=== PATIENT | female | born 1965 | race Caucasian/White ===

== ENCOUNTER 2019-11-19 17:05 | Outpatient (REF) | payer OTHER, SELFPAY ==
--- NOTE | 2019-11-19 17:11 | MM_ITS ---
EXAMINATION: MM SCREENING DIGITAL BREAST TOMOSYNTHESIS, BILATERAL CLINICAL INFORMATION: Screening. Asymptomatic. The lifetime risk of breast cancer based on the Tyrer-Cuzick Model is 7%. COMPARISON: Mammography: 06/13/2018, 07/31/2017, 04/09/2016, 03/01/2015 TECHNIQUE: Digital breast tomosynthesis is performed in both the craniocaudal and mediolateral oblique views along with computer-aided detection (CAD). Synthesized 2D images are generated from the tomosynthesis. FINDINGS: There are scattered areas of fibroglandular density (ACR BI-RADS breast composition Category b). Breast tissue composition borders on predominantly fatty. Background fibroglandular and stromal densities are stable. Parenchymal asymmetry posterior upper outer right breast is stable. There is no developing density or interval mass or architectural abnormality. No abnormal calcifications. No significant changes. IMPRESSION: No mammographic evidence of malignancy. ASSESSMENT: BI-RADS 2: Benign RECOMMENDATION: Routine annual mammography screening. This patient's information was entered into a reminder system with a target due date for their next mammogram.
== END 2019-11-19 17:06 | disposition home or self-care (01) ==
LOC: HO.MAMMO 17:05
PROVIDERS: PCP Internal Medicine; Visit Provider Internal Medicine
DX: Z12.31 Encounter for screening mammogram for malignant neoplasm of breast (principal)
CPT/HCPCS: 77063; 77067; 78014

== ENCOUNTER 2020-07-05 10:52 | Outpatient (REF) | payer OTHER, SELFPAY ==
[2020-07-05 14:03] LABS: MANUAL DIFF FLAG NO
[2020-07-05 14:15] LABS: Basophils Absolute Auto 0.1 X10*3/uL (0.0-0.2); Basophils Percent Auto 0.6 % (0-2); Eosinophils Absolute Auto 0.3 X10*3/uL (0.0-0.4); Eosinophils Percent Auto 3.1 % (0-4); Hematocrit 41.3 % (37-47); Hemoglobin 13.4 g/dl (12.0-16.0); Imm Gran Abs Auto 0.03 X10*3/uL (0.00-0.03); Imm Gran Pct Auto 0.4 % (0.0-0.4); Lymphocytes Percent Auto 35.7 % (20-40); Mean Corpuscular HGB Conc 32.4 g/dl (31.0-35.0); Mean Corpuscular Hemoglobin 28.5 pg (27.0-33.0); Mean Corpuscular Volume 87.9 fL (80-98); Mean Platelet Volume 9.3 fL (9.4-12.3); Monocytes Absolute Auto 0.5 X10*3/uL (0.1-1.2); Monocytes Percent Auto 6.2 % (2-11); Neutrophils Absolute Auto 4.6 X10*3/uL (2.0-8.3); Platelet Count 373 X10*3/uL (160-400); Red Cell Distribution Width 12.4 % (11.0-16.0); White Blood Count 8.4 X10*3/uL (4.8-10.8)
[2020-07-05 14:44] LABS: Alanine Aminotransferase 21 U/L (0-31); Albumin Level 4.2 g/dL (3.5-5.0); Alkaline Phosphatase 68 U/L (39-117); Anion Gap 14 (12-20); Aspartate Amino Transferase 11 U/L (5-31); Bilirubin Total 0.5 mg/dL (0.0-1.0); Blood Urea Nitrogen 14 mg/dL (9-16); Calcium 9.3 mg/dL (8.4-10.2); Carbon Dioxide 23 mmol/L (22-29); Chloride 107 mmol/L (96-108); Cholesterol 219 mg/dL; Estimated Glomerular Filt Rate > 60; Glucose Fasting 145 mg/dL (60-99); HDL Cholesterol 41 mg/dL; LDL Cholesterol Calculated 126 mg/dl; Potassium 4.1 mmol/L (3.3-5.1); Sodium 140 mmol/L (135-145); Total Protein 6.7 g/dL (6.5-8.0); Triglycerides 263 mg/dL
[2020-07-05 14:54] LABS: Creatinine Urine 113.43 mg/dL
== END 2020-07-05 10:53 | disposition home or self-care (01) ==
LOC: HO.HMGCLDS 10:52
PROVIDERS: PCP Internal Medicine; Visit Provider Internal Medicine
DX: D64.9 Anemia, unspecified (principal); E11.65 Type 2 diabetes mellitus with hyperglycemia; E78.5 Hyperlipidemia, unspecified; E06.3 Autoimmune thyroiditis
CPT/HCPCS: 36415; 80053; 80061; 82043; 84443; 85025

== ENCOUNTER 2020-07-10 19:18 | Emergency (ER) | payer OTHER, SELFPAY ==
--- NOTE | ~2020-07-10 | US_ITS ---
EXAMINATION: US VENOUS WITH DOPPLER LOWER EXTREMITY, RIGHT CLINICAL INFORMATION: Swelling, numbness, and tingling following knee replacement. COMPARISON: None TECHNIQUE: Ultrasound of the deep veins is performed from the hip to the calf with compression sonography and color and pulse Doppler assessment. Spectral analysis with color-flow imaging is performed. FINDINGS: There is normal venous compression and respiratory variation and augmented flow. The visualized common femoral vein, superficial femoral vein, profunda femoral vein, popliteal vein, and the trifurcation region shows no evidence of deep venous thrombosis. There is no significant popliteal fossa cyst. Small knee joint effusion. If the patient's symptoms persist, followup ultrasound in 5 days 7 days might be of value to exclude proximal propagation from a non-visualized calf vein. Small right inguinal lymph nodes. US/US venous duplex LE RT IMPRESSION: 1. No DVT demonstrated in the right lower extremity. 2. Small right knee joint effusion.
--- NOTE | ~2020-07-10 | US_ITS ---
EXAMINATION: US ARTERIAL DUPLEX LOWER EXTREMITY, RIGHT CLINICAL INFORMATION: Tingling status post knee replacement COMPARISON: None TECHNIQUE: Grayscale and color Doppler sonographic interrogation of the right lower extremity arterial vasculature was performed using spectral analysis. FINDINGS: * MORTGAGE SALES MANAGER: 111 cm/s, triphasic * Proximal profunda femoral: 64 cm/s, triphasic. * Proximal SFA: 96 cm/s, triphasic. * Mid SFA: 97 cm/s, triphasic. * Distal SFA: 89 cm/s, triphasic * Popliteal: 77 cm/s, triphasic * FINISHING AND SHIPPING SUPERVISOR: 63cm/s, triphasic * Peroneal: 32 cm/s, biphasic US/US arterial duplex LE RT IMPRESSION: Patent lower extremity arterial vasculature.
[2020-07-10 19:24] VITALS: BP 115/72; PULSE 74; RESP 16; TEMP 36.3; O2SAT 98; BMI 33.6
--- NOTE | 2020-07-10 19:54 | ED.EXTPRO ---
HPI - Extremity Problem General Chief complaint: Extremity Problem Stated complaint: leg pain Time Seen by Provider: 07/10/20 22:18 Source: patient Mode of arrival: ambulatory Limitations: no limitations History of Present Illness HPI Narrative: 55-year-old female with past medical history of hypothyroidism, bipolar disorder, diabetes, hyperlipidemia, right knee replacement February of 2020 presents with right lower leg pain, swelling and numbness. States that she was seen by her Orthopedic and urgent care over the past 2 weeks. States they did not find any abnormal findings. Patient has concerns because of the swelling. She does not report any fevers, chills, chest pain or pressure, palpitations, shortness of breath, shortness breath on exertion, chest pain on inspiration, abdominal pain, abdominal distention, dysuria, hematuria, or any other concerning problems. MD Complaint: extremity swelling Onset (ago): week(s) Pain Consistency: constant Location: right and lower extremity Severity scale (1-10): 6 Quality: aching and constant Radiation: none Relieving factors: nothing Exacerbating factors: weight bearing, walking and exertion Associated symptoms: other (Numbness, tingling and swelling) Related Data Home Medications Medication Instructions Recorded Confirmed pen needle, diabetic 31 gauge x #1200 ea 06/20/20 07/04/2006/26 metformin 750 mg tablet,extended 750 mg PO DAILY tab 07/04/20 07/04/20 release 24 hr Previous Rx's Medication Instructions Recorded levothyroxine 100 mcg tablet 100 mcg PO DAILY 90 Days #90 tab 11/24/19 ergocalciferol (vitamin D2) 1,250 1,250 mcg PO QWEEK 30 Days #5 cap 03/10/20 mcg (50,000 unit) capsule canagliflozin 300 mg tablet 300 mg PO DAILY 90 Days #90 tab 05/10/20 omeprazole 20 mg capsule,delayed 20 mg PO DAILY 90 Days #90 cap 05/17/20 release atorvastatin 80 mg tablet 80 mg PO BEDTIME 90 Days #90 tab 06/16/20 acetaminophen 500 mg tablet 500 mg PO BID PRN 90 Days #180 tab 07/04/20 insulin glargine 100 unit/mL (3 25 unit SUBCUT DAILY 90 Days #22.5 07/04/20 mL) subcutaneous pen ml zolpidem 10 mg tablet 10 mg PO BEDTIME PRN 30 Days #30 05/24/21 tab flash glucose sensor #1 ea 07/06/20 blood sugar diagnostic #50 07/07/20 blood-glucose meter #1 07/07/20 lancets 28 gauge #100 07/07/20 Allergies Allergy/AdvReac Type Severity Reaction Status Date / Time codeine [CODEINE] Allergy Intermediate NAUSEA, Verified 07/10/20 20:10 nausea and vomiting Review of Systems Review of Systems: Constitutional: No Fever, No Chills ENT/Mouth: No Ear Pain, No Hoarseness, No sore throat Eyes: No Eye Pain, No Swelling, No Redness, No Foreign Body Cardiovascular: No Chest Pain, No SOB Respiratory: No Cough, No Dyspnea Gastrointestinal: No Nausea, No Vomiting, No Diarrhea, No abdominal Pain Genitourinary: No Dysuria, No Hematuria Musculoskeletal: positive right lower extremity numbness tingling pain and swelling, No Myalgias, No Joint Swelling Skin: No Skin lacerations, No rash Neuro: No Weakness, No Numbness, No Paresthesias, No Loss of Consciousness, No Dizziness, No Headache Psych: No Anxiety/Panic, No Depression Heme/Lymph: no easy bruising, no Lymphadenopathy Endocrine: No Polyuria, No Polydipsia Yes all other systems are reviewed and are negative [facility] Past Medical History Attestation statement: The following information was validated with the patient. Source: old records reviewed Medical History Autoimmune thyroiditis Bipolar disorder Depression with anxiety Diabetes mellitus Dyslipidemia Fear of needles Insomnia Knee pain Surgical History History of total right knee replacement Family History Family History Father No problems noted. Mother Brain aneurysm COPD (chronic obstructive pulmonary disease) Social History Social History Alcohol intake: former Advance Directives: No Physical Exam Vital Signs: Vital Signs: Last Vital Signs Temp 97.3 F 07/10/20 22:00 Pulse 73 07/10/20 22:00 Resp 16 07/10/20 22:00 BP 104/62 07/10/20 22:00 Pulse Ox 97 07/10/20 22:00 Body Mass Index 33.6 Appearance: Alert. Oriented X3. No acute distress. Eyes: Pupils equal, round and reactive to light. ENT: Pharynx normal. Neck: Normal inspection. Neck supple. CVS: Normal heart rate and rhythm. Pulses normal. Respiratory: No respiratory distress. Breath sounds normal. Abdomen: Soft and nontender. Skin: Skin warm and dry. Normal skin color. Normal skin turgor. Extremities: Full range of motion to bilateral lower extremities, I do not appreciate any abnormal swelling or decreased capillary refill, pedal pulses are equal. Neuro: No motor deficit. No sensory deficit. Gait well balanced well coordinated. Course Course Course Narrative: 55-year-old female presents with right leg pain, swelling, numbness and tingling. She is 5 months status post right knee replacement. Was seen by the Orthopedic surgeon who did not find any abnormal findings on his exam. Plan of care is for duplex and arteriogram of right lower extremity. MDM - Extremity (Nontraumatic) Differential Diagnosis Differential diagnosis: Likely superficial thrombophlebitis, lower extremity edema and deep vein thrombosis of lower extremity Medical Records Attestation: I reviewed the patient's medical records. Imaging Data Venous duplex: Attestation: I personally reviewed and interpreted this imaging study as follows: Radiologist's impression: EXAMINATION: US VENOUS WITH DOPPLER LOWER EXTREMITY, RIGHT CLINICAL INFORMATION: Swelling, numbness, and tingling following knee replacement. COMPARISON: None TECHNIQUE: Ultrasound of the deep veins is performed from the hip to the calf with compression sonography and color and pulse Doppler assessment. Spectral analysis with color-flow imaging is performed. FINDINGS: There is normal venous compression and respiratory variation and augmented flow. The visualized common femoral vein, superficial femoral vein, profunda femoral vein, popliteal vein, and the trifurcation region shows no evidence of deep venous thrombosis. There is no significant popliteal fossa cyst. Small knee joint effusion. If the patient's symptoms persist, followup ultrasound in 5 days 7 days might be of value to exclude proximal propagation from a non-visualized calf vein. Small right inguinal lymph nodes. US/US venous duplex LE RT IMPRESSION: 1. No DVT demonstrated in the right lower extremity. 2. Small right knee joint effusion. Arterial duplex: Attestation: I personally reviewed and interpreted this imaging study as follows: Radiologist's impression: cc: VIVEK CAMPBELL FRAME CATCHER~ EXAMINATION: US ARTERIAL DUPLEX LOWER EXTREMITY, RIGHT CLINICAL INFORMATION: Tingling status post knee replacement COMPARISON: None TECHNIQUE: Grayscale and color Doppler sonographic interrogation of the right lower extremity arterial vasculature was performed using spectral analysis. FINDINGS: * RACE BOARD ATTENDANT: 111 cm/s, triphasic * Proximal profunda femoral: 64 cm/s, triphasic. * Proximal SFA: 96 cm/s, triphasic. * Mid SFA: 97 cm/s, triphasic. * Distal SFA: 89 cm/s, triphasic * Popliteal: 77 cm/s, triphasic * PATTERN GATER: 63cm/s, triphasic * Peroneal: 32 cm/s, biphasic US/US arterial duplex LE RT IMPRESSION: Patent lower extremity arterial vasculature. Discharge Plan Discharge Clinical Impression: Effusion of knee joint right Patient Disposition: Home, Self-Care Instructions: Swollen Knee Joint (ED), Knee Pain (ED) Additional Instructions: You were evaluated for right knee pain and swelling with tingling and numbness. Your venous duplex was normal with the exception and a small right knee effusion, which is a pocket of fluid inside the knee joint. Your arterial duplex was normal. You do not have any DVT or arterial deterioration visualized on these exams Please follow-up with your orthopedic for knee effusion. Thank you for choosing this emergency department for evaluation. Please follow-up with primary care physician as needed. Return to the emergency department for any new, concerning, or worsening symptoms. Prescriptions: No Action levothyroxine 100 mcg tablet 100 mcg PO DAILY 90 Days Qty: 90 RF: 1 ergocalciferol (vitamin D2) 1,250 mcg (50,000 unit) capsule 1,250 mcg PO QWEEK 30 Days Qty: 5 RF: 4 Invokana 300 mg tablet 300 mg PO DAILY 90 Days Qty: 90 RF: 1 omeprazole 20 mg capsule,delayed release(DR/EC) 20 mg PO DAILY 90 Days Qty: 90 RF: 3 atorvastatin 80 mg tablet 80 mg PO BEDTIME 90 Days Qty: 90 RF: 2 (DME) pen needle, diabetic [UltiCare Pen Needle] 31 gauge x 5/16 needle See Rx Instructions .ROUTE .MEDSUPPLY Qty: 1200 RF: 0 (DME) FreeStyle Debora 2 Sensor Kit See Rx Instructions .ROUTE .MEDSUPPLY Qty: 1 RF: 0 (DME) lancets [FreeStyle Lancets] 28 gauge misc See Rx Instructions .ROUTE .MEDSUPPLY Qty: 100 RF: 11 (DME) blood-glucose meter [FreeStyle Superior] Kit See Rx Instructions .ROUTE .MEDSUPPLY Qty: 1 RF: 0 (DME) FreeStyle Test Strip See Rx Instructions .ROUTE .MEDSUPPLY Qty: 50 RF: 11 metformin 750 mg tablet extended release 24 hr 750 mg PO DAILY RF: 0 insulin glargine 100 unit/mL (3 mL) insulin pen 25 unit subcut DAILY 90 Days Qty: 22.5 RF: 3 acetaminophen [Tylenol Extra Strength] 500 mg tablet 500 mg PO BID PRN (Reason: fever or pain) 90 Days Qty: 180 RF: 3 zolpidem 10 mg tablet 10 mg PO BEDTIME PRN (Reason: sleep) 30 Days Qty: 30 RF: 0
[2020-07-10 22:00] VITALS: BP 104/62; PULSE 73; RESP 16; TEMP 36.3; O2SAT 97
[2020-07-10] MEDS: Ibuprofen 600 MG TABLET PO (22:19)
== END 2020-07-10 23:02 | disposition home or self-care (01) ==
PROVIDERS: Emergency Provider Internal Medicine; PCP Internal Medicine
DX: M25.461 Effusion, right knee (principal); M79.661 Pain in right lower leg; E11.9 Type 2 diabetes mellitus without complications; E78.5 Hyperlipidemia, unspecified; F31.9 Bipolar disorder, unspecified; Z96.651 Presence of right artificial knee joint; Z79.84 Long term (current) use of oral hypoglycemic drugs; Z79.02 Long term (current) use of antithrombotics/antiplatelets; Z79.899 Other long term (current) drug therapy
CPT/HCPCS: 93926; 93971; 99284

== ENCOUNTER 2020-11-03 09:29 | Outpatient (REF) | payer OTHER, SELFPAY ==
[2020-11-03 10:43] LABS: Alanine Aminotransferase 24 U/L (0-31); Albumin Level 4.1 g/dL (3.5-5.0); Alkaline Phosphatase 58 U/L (39-117); Anion Gap 13 (12-20); Aspartate Amino Transferase 19 U/L (5-31); Bilirubin Total 0.5 mg/dL (0.0-1.0); Blood Urea Nitrogen 13 mg/dL (9-16); Calcium 9.7 mg/dL (8.4-10.2); Carbon Dioxide 25 mmol/L (22-29); Chloride 106 mmol/L (96-108); Cholesterol 139 mg/dL; Estimated Glomerular Filt Rate > 60; Glucose Fasting 168 mg/dL (60-99); HDL Cholesterol 36 mg/dL; LDL Cholesterol Calculated 76 mg/dl; Potassium 4.5 mmol/L (3.3-5.1); Sodium 139 mmol/L (135-145); Total Protein 6.6 g/dL (6.5-8.0); Triglycerides 139 mg/dL
[2020-11-03 11:04] LABS: Thyroid Stimulating Hormone 0.54 uIU/mL (0.32-4.0)
[2020-11-11 16:17] LABS: Vitamin D 25-OH, D2 48 ng/mL; Vitamin D 25-OH, D3 5 ng/mL; Vitamin D 25-OH, Total 53 ng/mL (30-100)
== END 2020-11-03 09:30 | disposition home or self-care (01) ==
LOC: HO.LAB 09:29
PROVIDERS: PCP Internal Medicine; Visit Provider Internal Medicine
DX: E06.3 Autoimmune thyroiditis (principal); E78.5 Hyperlipidemia, unspecified; E11.65 Type 2 diabetes mellitus with hyperglycemia; E55.9 Vitamin D deficiency, unspecified
CPT/HCPCS: 36415; 80053; 80061; 82306; 84443

== ENCOUNTER 2020-11-29 08:19 | Outpatient (REF) | payer OTHER, SELFPAY ==
--- NOTE | ~2020-11-29 | MM_ITS ---
EXAMINATION: MM SCREENING DIGITAL BREAST TOMOSYNTHESIS, BILATERAL CLINICAL INFORMATION: Screening. Asymptomatic. The lifetime risk of breast cancer based on the Tyrer-Cuzick Model is 6%. COMPARISON: Mammography: 11/19/2019, 06/18/2018, 05/17/2017, 04/09/2016, 03/01/2015 TECHNIQUE: Digital breast tomosynthesis is performed in both the craniocaudal and mediolateral oblique views along with computer-aided detection (CAD). Synthesized 2D images are generated from the tomosynthesis. FINDINGS: There are scattered areas of fibroglandular density (ACR BI-RADS breast composition Category b). There are no significant masses, abnormal calcifications, or other abnormalities. There is minor stable parenchymal asymmetry posterior upper outer right breast similar to prior studies. No developing density. The axilla and skin contours are unremarkable. MM/MM tomosynthesis screening BI IMPRESSION: No mammographic evidence of malignancy. ASSESSMENT: BI-RADS 2: Benign RECOMMENDATION: Routine annual mammography screening. This patient's information was entered into a reminder system with a target due date for their next mammogram.
== END 2020-11-29 08:20 | disposition home or self-care (01) ==
LOC: HO.MAMMO 08:19
PROVIDERS: PCP Internal Medicine; Visit Provider Internal Medicine
DX: Z12.31 Encounter for screening mammogram for malignant neoplasm of breast (principal)
CPT/HCPCS: 77063; 77067

== ENCOUNTER 2020-12-28 10:00 | Outpatient (RCR) | payer OTHER, SELFPAY ==
--- NOTE | 2020-11-17 16:47 | MHC.PT.EP ---
[facility] [place] [facility] [place] [facility] [place] [facility] [address] Richelle Ortega [address] [phone] F: [phone] F: [phone] F: [phone] F: [phone] Physical Therapy Plan of Care Date of Evaluation: Date of Surgery: feb 22 TKA Diagnosis: pain in Right knee Assessment: Pt is a 55/yo F referred to PT for eval/treat of R knee pain. signs and symptoms are consistent with knee dysfunction resulting in decreased tolerance and ability to perform ambulatory, standing tasks for duration as well as negotiating stairs, performing squatting activities and heavy HH chores. Functional limitations are secondary decreased LE strength more affected on R, restricted ROM w/ empty end feel on R, TTP of stacie-patellar region, gait deviation ? antalgic gait, hx of fall, and pain. pt is deemed appropriate to receive skilled PT to address her physical impairment and improve her functional ability. Frequency and Duration: The patient will be seen 2x/wk for 5wk Short Term Goals: initiate HEP w/ evidence of compliance pt will report pain less than 2/10 pain at rest Alf Goals: I with HEP pt will be able to squat with mod difficulty; initial extreme difficulty pt will be able to negotiate stairs with little to no difficulty pt will improve her LEFI score by increment of 2 MDC; initial socre 25/80 Treatment Plan: Modalities to reduce pain, spasms and effusion. Manual therapy to restore motion and function. Therapeutic exercise to improve strength and flexibility. Neuromuscular re-education for posture and balance. Therapeutic activities to return to functional activities of daily living. Electronically signed by: Balwinder Dumont PT Please sign and return to therapist. Thank you for your referral.
== END 2021-04-07 11:01 | disposition home or self-care (01) ==
LOC: HO.PTCHIC 10:00
PROVIDERS: PCP Internal Medicine; Visit Provider Internal Medicine
DX: M25.561 Pain in right knee (principal)
CPT/HCPCS: 97110; 97112; 97140; 97161

== ENCOUNTER 2021-01-26 14:09 | Outpatient (REF) | payer OTHER, SELFPAY ==
[2021-01-26 15:06] LABS: Influenza A PCR NEGATIVE (Negative); Influenza B PCR NEGATIVE (Negative); Resp Syncy Virus RNA Qual PCR NEGATIVE (Negative); SARS COV2 PCR INHOUSE POSITIVE (Negative)
== END 2021-01-26 14:10 | disposition home or self-care (01) ==
LOC: HO.LNP 14:09
PROVIDERS: Visit Provider Physician Assistant
DX: J06.9 Acute upper respiratory infection, unspecified (principal); R19.7 Diarrhea, unspecified; Z20.822 Contact with and (suspected) exposure to COVID-19
CPT/HCPCS: 0241U

== ENCOUNTER 2021-02-02 10:53 | Emergency (ER) | payer OTHER, SELFPAY ==
[2021-02-02 12:32] VITALS: BP 132/74; PULSE 92; RESP 18; TEMP 35.8; O2SAT 96; BMI 30.4
--- NOTE | 2021-02-02 12:51 | ED.GENADULT ---
HPI - General Adult General Chief complaint: Upper Respiratory Symptoms Stated complaint: +covid/ diff breathing Time Seen by Provider: 02/02/21 12:51 Source: patient Limitations: no limitations History of Present Illness HPI narrative: Patient presents to the ER with worsening sore throat over the past few days. Patient tested positive COVID-19 78 days prior. Patient states her symptoms started on January 22. Patient is a type 2 diabetic. Patient was seen in outside clinic where she was tested positive COVID at that time. Patient is fully vaccinated but does not have the booster at this time. Patient was given follow-up for monoclonal antibodies but she did not go because she thought she had a self quarantine. At this time symptoms are outside of the 10 day. Patient's main concern is the painful swallowing she has a slight cough. No nausea vomiting chest pain or shortness of breath at this time. Cough is nonproductive. Symptoms are [id number] pain 08/20 Related Data Home Medications Medication Instructions Recorded Confirmed gabapentin 300 mg capsule 300 mg PO TID 11/02/20 11/02/20 lancets 33 gauge (TRUEplus Lancets) #100 ea 11/02/20 11/02/20 Previous Rx's Medication Instructions Recorded omeprazole 20 mg capsule,delayed 20 mg PO DAILY 90 Days #90 cap 05/17/20 release atorvastatin 80 mg tablet 80 mg PO BEDTIME 90 Days #90 tab 06/16/20 acetaminophen 500 mg tablet 500 mg PO BID PRN 90 Days #180 tab 07/04/20 (Tylenol Extra Strength) insulin glargine 100 unit/mL (3 25 unit (0.25 mL) SUBCUT DAILY 90 07/04/20 mL) subcutaneous pen Days #22.5 ml flash glucose sensor (FreeStyle #1 ea 07/06/20 Debora 2 Sensor) blood sugar diagnostic (FreeStyle #50 ea 07/07/20 Test) blood-glucose meter (FreeStyle #1 ea 07/07/20 [place]) lancets 28 gauge (FreeStyle #100 ea 07/07/20 Lancets) canagliflozin 300 mg tablet 300 mg PO DAILY 90 Days #90 tab 11/14/20 (Invokana) pen needle, diabetic 31 gauge x #100 ea 11/22/2006/26 (UltiCare Pen Needle) ergocalciferol (vitamin D2) 1,250 1,250 mcg PO QWEEK 30 Days #5 cap 12/14/20 mcg (50,000 unit) capsule metformin 750 mg tablet,extended 2,250 mg PO DAILY 30 Days #90 tab 01/02/21 release 24 hr zolpidem 10 mg tablet 10 mg PO BEDTIME PRN 30 Days #30 01/11/21 tab levothyroxine 100 mcg tablet 100 mcg PO DAILY 90 Days #90 tab 01/24/21 guaifenesin 600 mg tablet, 600 mg PO BID 7 Days #14 tab 01/31/21 extended release 12 hr (Mucinex) benzonatate 100 mg capsule 100 mg PO TID PRN #14 cap 02/02/21 Allergies Allergy/AdvReac Type Severity Reaction Status Date / Time codeine [CODEINE] Allergy Intermediate NAUSEA, Verified 01/26/21 10:18 nausea and vomiting Review of Systems Constitutional: Constitutional: Denies chills, Denies fever(s) and Denies headache(s) ENT: Denies headache(s) and Reports sore throat Cardiovascular: Cardiovascular: Denies chest pain and Denies dyspnea Respiratory: Respiratory: Reports cough, Denies pain on inspiration and Denies dyspnea Gastrointestinal: Gastrointestinal: Denies diarrhea, Denies nausea and Denies vomiting Musculoskeletal: Musculoskeletal: Reports no additional musculoskeletal complaints Neurologic: Denies headache(s) [facility] Past Medical History Attestation statement: The following information was validated with the patient. Medical History Autoimmune thyroiditis Bipolar disorder Depression with anxiety Diabetes mellitus Dyslipidemia Fear of needles Ingrown toenail Insomnia Knee pain Mild recurrent major depression Right knee pain Skin mole Surgical History History of total right knee replacement Family History Family History Father No problems noted. Mother Brain aneurysm COPD (chronic obstructive pulmonary disease) Social History Social History Alcohol intake: former Patient Tobacco Use Status: Former Tobacco user Tobacco use type: Cigarette e-Cigarette/Vaping Use: Never Used Second Hand Smoke Exposure: No Advance Directives: No Advance Directives Information Provided: Yes Physical Exam Vital Signs: Vital Signs: Last Vital Signs Temp 96.4 F L 02/02/21 12:32 Pulse 92 02/02/21 12:32 Resp 18 02/02/21 12:32 BP 132/74 02/02/21 12:32 Pulse Ox 96 02/02/21 12:32 BMI result Body Mass Index 30.4 vital signs have been reviewed as normal and appeared to be correct. Blood pressure normal. Heart rate normal. Respiration rate normal. Temperature normal. Oxygen saturation normal. Appearance: Alert. Oriented X3. No acute distress. Head: Normal external exam. Normocephalic. Atraumatic. Eyes: PERRLA. EOMI. Conjunctiva and sclera normal. Eyelids normal. ENT: Uvula midline. Moist mucous membranes. No trismus noted. Patient tolerating secretions no obvious exudate of pharyngitis or peritonsillar abscess. Neck: Soft full range of motion, no stridor CVS: Heart regular rate and rhythm no murmurs and rubs Respiratory: Breath sounds are clear to auscultation bilaterally. No accessory muscle use noted. Back: Full range of motion noted. Skin: Skin warm and dry. Normal skin color. No rashes noted no ecchymosis Extremities: No lower extremity edema. Extremities exhibit normal range of motion. Extremities nontender. Neuro: Oriented X 3. No motor deficit. No sensory deficit. Reflexes normal. Course Course Course Narrative: COVID-19 Sore throat Viral syndrome Peritonsillar abscess less likely 10:03 p.m. Patient's O2 sat 96-97% on room air. Patient denies any shortness of breath at this time her main concern is a sharp pain she has a swallowing. Throat is otherwise clear. Will treat her throat pain and cough with Tessalon Perlalvin at this time. Patient is outside the window for monoclonal antibodies at this time. Patient was given follow-up when she was originally diagnosed. But she did not call the number. Discharge Plan Discharge Clinical Impression: Acute sore throat, COVID-19 Patient Disposition: Home, Self-Care Instructions: Upper Respiratory Infection (ED), COVID-19 (Coronavirus Disease 2019) (ED) Additional Instructions: Warm salt water gargles a recommended Medication as directed Increase fluids rest return if symptoms worsen Prescriptions: New benzonatate 100 mg capsule 100 mg PO TID PRN (Reason: cough) Qty: 14 RF: 0 No Action omeprazole 20 mg capsule,delayed release(DR/EC) 20 mg PO DAILY 90 Days Qty: 90 RF: 3 atorvastatin 80 mg tablet 80 mg PO BEDTIME 90 Days Qty: 90 RF: 2 (DME) FreeStyle Debora 2 Sensor Kit See Rx Instructions .ROUTE .MEDSUPPLY Qty: 1 RF: 0 (DME) lancets [FreeStyle Lancets] 28 gauge misc See Rx Instructions .ROUTE .MEDSUPPLY Qty: 100 RF: 11 (DME) blood-glucose meter [FreeStyle [place]] Kit See Rx Instructions .ROUTE .MEDSUPPLY Qty: 1 RF: 0 (DME) FreeStyle Test Strip See Rx Instructions .ROUTE .MEDSUPPLY Qty: 50 RF: 11 Invokana 300 mg tablet 300 mg PO DAILY 90 Days Qty: 90 RF: 1 (DME) pen needle, diabetic [UltiCare Pen Needle] 31 gauge x 5/16 needle See Rx Instructions .ROUTE .MEDSUPPLY Qty: 100 RF: 3 ergocalciferol (vitamin D2) 1,250 mcg (50,000 unit) capsule 1,250 mcg PO QWEEK 30 Days Qty: 5 RF: 4 metformin 750 mg tablet extended release 24 hr 2,250 mg PO DAILY 30 Days Qty: 90 RF: 2 zolpidem 10 mg tablet 10 mg PO BEDTIME PRN (Reason: sleep) 30 Days Qty: 30 RF: 0 levothyroxine 100 mcg tablet 100 mcg PO DAILY 90 Days Qty: 90 RF: 1 guaifenesin [Mucinex] 600 mg tablet extended release 12hr 600 mg PO BID 7 Days Qty: 14 RF: 0 insulin glargine 100 unit/mL (3 mL) insulin pen 25 unit subcut DAILY 90 Days Qty: 22.5 RF: 3 acetaminophen [Tylenol Extra Strength] 500 mg tablet 500 mg PO BID PRN (Reason: fever or pain) 90 Days Qty: 180 RF: 3 (DME) lancets [TRUEplus Lancets] 33 gauge misc See Rx Instructions ea Not Applicable DAILY Qty: 100 RF: 0 gabapentin 300 mg capsule 300 mg PO TID RF: 0
== END 2021-02-02 13:22 | disposition home or self-care (01) ==
PROVIDERS: Emergency Provider Emergency Medicine; PCP Internal Medicine
DX: U07.1 COVID-19 (principal); J02.9 Acute pharyngitis, unspecified; E11.9 Type 2 diabetes mellitus without complications
CPT/HCPCS: 99283

== ENCOUNTER 2021-03-22 09:28 | Outpatient (REF) | payer OTHER, SELFPAY ==
[2021-03-22 12:29] LABS: Creatinine Urine 78.72 mg/dL; Microalbum/Creatinine Ratio Ur 7.6 ug/mg cr
[2021-03-22 12:49] LABS: Alanine Aminotransferase 125 U/L (0-31); Albumin Level 4.1 g/dL (3.5-5.0); Alkaline Phosphatase 87 U/L (39-117); Anion Gap 14 (12-20); Aspartate Amino Transferase 22 U/L (5-31); Bilirubin Total 0.5 mg/dL (0.0-1.0); Carbon Dioxide 24 mmol/L (22-29); Chloride 106 mmol/L (96-108); Cholesterol 138 mg/dL; Estimated Glomerular Filt Rate > 60; Glucose Fasting 167 mg/dL (60-99); HDL Cholesterol 25 mg/dL; LDL Cholesterol Calculated 67 mg/dl; Potassium 3.9 mmol/L (3.3-5.1); Sodium 140 mmol/L (135-145); Total Protein 6.7 g/dL (6.5-8.0); Triglycerides 232 mg/dL
[2021-03-22 12:54] LABS: Thyroid Stimulating Hormone 0.83 uIU/mL (0.32-4.0)
[2021-03-22 15:36] LABS: Blood Urea Nitrogen 10 mg/dL (9-16); Calcium 9.6 mg/dL (8.4-10.2)
[2021-03-22 15:38] LABS: Estimated Average Glucose 203 mg/dL; Hemoglobin A1c % 8.7 %
[2021-03-28 12:22] LABS: Vitamin D 25-OH, D2 51 ng/mL; Vitamin D 25-OH, D3 5 ng/mL; Vitamin D 25-OH, Total 56 ng/mL (30-100)
== END 2021-03-22 09:29 | disposition home or self-care (01) ==
LOC: HO.HMGCLDS 09:28
PROVIDERS: Visit Provider Internal Medicine
DX: E78.5 Hyperlipidemia, unspecified (principal); E11.40 Type 2 diabetes mellitus with diabetic neuropathy, unspecified; E55.9 Vitamin D deficiency, unspecified; E06.3 Autoimmune thyroiditis; E11.65 Type 2 diabetes mellitus with hyperglycemia
CPT/HCPCS: 36415; 80053; 80061; 82043; 82306; 83036; 84443

== ENCOUNTER 2021-06-01 09:29 | Outpatient (REF) | payer OTHER, SELFPAY ==
[2021-06-06 16:46] LABS: Glutamic acid decarboxylase Ab <5 IU/mL (<5)
== END 2021-06-01 09:30 | disposition home or self-care (01) ==
LOC: HO.LAB 09:29
PROVIDERS: PCP Internal Medicine; Visit Provider Internal Medicine Endocrinology, Diabetes & Metabolism
DX: E11.65 Type 2 diabetes mellitus with hyperglycemia (principal); Z79.899 Other long term (current) drug therapy; Z87.891 Personal history of nicotine dependence
CPT/HCPCS: 36415; 82947; 86341; 99202

== ENCOUNTER → 2021-06-27 14:41 | Outpatient (BNVA) | payer OTHER, SELFPAY | PROVIDERS: PCP Internal Medicine; Visit Provider Registered Nurse Diabetes Educator | DX: E11.65 Type 2 diabetes mellitus with hyperglycemia (principal) | CPT/HCPCS: Q3014 ==

== ENCOUNTER → 2021-07-04 10:49 | Outpatient (BNVA) | payer OTHER, SELFPAY | PROVIDERS: PCP Internal Medicine; Visit Provider Dietitian, Registered | DX: E11.65 Type 2 diabetes mellitus with hyperglycemia (principal); Z71.3 Dietary counseling and surveillance | CPT/HCPCS: 97802 ==

== ENCOUNTER → 2021-08-01 10:16 | Outpatient (BNVA) | payer OTHER, SELFPAY | PROVIDERS: PCP Internal Medicine; Visit Provider Dietitian, Registered | DX: E11.65 Type 2 diabetes mellitus with hyperglycemia (principal); Z71.3 Dietary counseling and surveillance | CPT/HCPCS: 97803 ==

== ENCOUNTER → 2021-08-31 10:35 | Outpatient (BNVA) | payer OTHER, SELFPAY | PROVIDERS: PCP Internal Medicine; Visit Provider Internal Medicine Endocrinology, Diabetes & Metabolism | DX: E11.65 Type 2 diabetes mellitus with hyperglycemia (principal) | CPT/HCPCS: 82947; 99212 ==

== ENCOUNTER → 2021-09-01 10:25 | Outpatient (BNVA) | payer OTHER, SELFPAY | PROVIDERS: PCP Internal Medicine; Visit Provider Dietitian, Registered | DX: E11.65 Type 2 diabetes mellitus with hyperglycemia (principal); Z71.3 Dietary counseling and surveillance | CPT/HCPCS: 97803 ==

== ENCOUNTER → 2021-10-23 11:17 | Outpatient (BNVA) | payer OTHER, SELFPAY | PROVIDERS: PCP Internal Medicine; Visit Provider Dietitian, Registered | DX: E11.65 Type 2 diabetes mellitus with hyperglycemia (principal) | CPT/HCPCS: 97803 ==

== ENCOUNTER 2021-10-24 09:05 | Outpatient (REF) | payer OTHER, SELFPAY ==
[2021-10-24 10:24] LABS: Alanine Aminotransferase 15 U/L (0-31); Albumin Level 3.8 g/dL (3.5-5.0); Alkaline Phosphatase 45 U/L (39-117); Anion Gap 13 (12-20); Aspartate Amino Transferase 11 U/L (5-31); Bilirubin Total 0.7 mg/dL (0.0-1.0); Blood Urea Nitrogen 9 mg/dL (9-16); Calcium 9.2 mg/dL (8.4-10.2); Carbon Dioxide 29 mmol/L (22-29); Chloride 106 mmol/L (96-108); Cholesterol 109 mg/dL; Estimated Glomerular Filt Rate > 60; Glucose Fasting 78 mg/dL (60-99); HDL Cholesterol 34 mg/dL; LDL Cholesterol Calculated 60 mg/dl; Potassium 3.5 mmol/L (3.3-5.1); Sodium 144 mmol/L (135-145); Total Protein 5.9 g/dL (6.5-8.0); Triglycerides 78 mg/dL
[2021-10-24 10:47] LABS: Thyroid Stimulating Hormone 0.15 uIU/mL (0.32-4.0); Vitamin D 25-OH Total 20.8 ng/mL (>30)
[2021-10-24 11:12] LABS: Creatinine Urine 165.82 mg/dL
== END 2021-10-24 09:06 | disposition home or self-care (01) ==
LOC: HO.LAB 09:05
PROVIDERS: PCP Internal Medicine; Visit Provider Internal Medicine
DX: E11.65 Type 2 diabetes mellitus with hyperglycemia (principal); E55.9 Vitamin D deficiency, unspecified; E06.3 Autoimmune thyroiditis; E78.5 Hyperlipidemia, unspecified
CPT/HCPCS: 36415; 80053; 80061; 82043; 82306; 84443

== ENCOUNTER 2021-12-05 07:54 | Outpatient (REF) | payer OTHER, SELFPAY ==
--- NOTE | ~2021-12-05 | MM_ITS ---
EXAMINATION: MM SCREENING DIGITAL BREAST TOMOSYNTHESIS, BILATERAL CLINICAL INFORMATION: Screening. Asymptomatic. The lifetime risk of breast cancer based on the Tyrer-Cuzick Model is 10.2%. COMPARISON: Mammography: November 29, 2020 and studies dating back to March 01, 2015 TECHNIQUE: Digital breast tomosynthesis is performed in both the craniocaudal and mediolateral oblique views along with computer-aided detection (CAD). Synthesized 2D images are generated from the tomosynthesis. FINDINGS: There are scattered areas of fibroglandular density (ACR BI-RADS breast composition Category b). There are no significant masses, abnormal calcifications, or other abnormalities. MM/MM tomosynthesis screening BI IMPRESSION: No significant changes from prior exam. ASSESSMENT: BI-RADS 1: Negative RECOMMENDATION: Routine annual mammography screening. This patient's information was entered into a reminder system with a target due date for their next mammogram.
== END 2021-12-05 07:55 | disposition home or self-care (01) ==
LOC: HO.MAMMO 07:54
PROVIDERS: PCP Internal Medicine; Visit Provider Internal Medicine
DX: Z12.31 Encounter for screening mammogram for malignant neoplasm of breast (principal)
CPT/HCPCS: 77063; 77067

== ENCOUNTER → 2021-12-21 14:30 | Outpatient (BNVA) | payer OTHER, SELFPAY | PROVIDERS: PCP Internal Medicine; Visit Provider Internal Medicine Endocrinology, Diabetes & Metabolism | DX: E11.65 Type 2 diabetes mellitus with hyperglycemia (principal) | CPT/HCPCS: 82947; 99212 ==

== ENCOUNTER 2022-03-13 13:58 | Outpatient (REF) | payer OTHER, SELFPAY ==
[2022-03-13 15:12] LABS: Thyroid Stimulating Hormone 1.08 uIU/mL (0.32-4.0)
== END 2022-03-13 13:59 | disposition home or self-care (01) ==
LOC: HO.LAB 13:58
PROVIDERS: PCP Internal Medicine; Visit Provider Internal Medicine
DX: E06.3 Autoimmune thyroiditis (principal)
CPT/HCPCS: 36415; 84443

== ENCOUNTER → 2022-03-15 10:04 | Outpatient (BNVA) | payer OTHER, SELFPAY | PROVIDERS: PCP Internal Medicine; Visit Provider Surgery Vascular Surgery | DX: I73.9 Peripheral vascular disease, unspecified (principal) | CPT/HCPCS: 99202 ==

== ENCOUNTER 2022-04-04 12:33 | Outpatient (REF) | payer OTHER, SELFPAY ==
--- NOTE | ~2022-04-04 | US_ITS ---
EXAMINATION: NONINVASIVE ASSESSMENT OF THE ARTERIES OF BOTH LOWER EXTREMITIES WITH PVR EXAM AND BILATERAL LOWER EXTREMITY DUPLEX Vanda Dixon MD CLINICAL INFORMATION: Peripheral vascular disease TECHNIQUE: Ankle pulse volume recordings, ankle pressure measurements and ankle brachial indices were obtained of the lower extremity arterial system bilaterally in addition to duplex Doppler techniques with wave form analysis and measurement of velocities in the common femoral, profunda femoral, superficial femoral, popliteal and tibial arteries. The study was performed only at rest. COMPARISON: Arterial duplex on 07/10/2020 FINDINGS: a) AT REST: RIGHT LE. The right ankle-brachial index is: 1.17 * >0.97-1.25 = normal - no significant arterial disease * 0.75-0.96 = mild peripheral arterial disease * 0.5-0.74 = moderate peripheral arterial disease * <0.50 = severe peripheral arterial disease 2. Right ankle pressure: normal. 3. Right ankle PVR waveform: normal. 4. Right direct duplex Doppler findings: Common femoral artery: 105 cm/s, Multiphasic Profunda femoris artery: 53 cm/s, Multiphasic Superficial femoral artery (proximal): 101 cm/s, Multiphasic Superficial femoral artery (mid): 76 cm/s, Multiphasic Superficial femoral artery (distal): 84 cm/s, Multiphasic Proximal Popliteal artery: 57 cm/s, Multiphasic Mid posterior tibial artery: 61 cm/s, Multiphasic LEFT LE. The left ankle-brachial index is: 1.16 * >0.97-1.25 = normal - no significant arterial disease * 0.75-0.96 = mild peripheral arterial disease * 0.5-0.74 = moderate peripheral arterial disease * <0.50 = severe peripheral arterial disease 2. Left ankle pressure: normal. 3. Left ankle PVR waveform: normal. 4. Left direct duplex Doppler findings: Common femoral artery: 94 cm/s, Multiphasic Profunda femoris artery: 52 cm/s, Multiphasic Superficial femoral artery (proximal): 76 cm/s, Multiphasic Superficial femoral artery (mid): 75 cm/s, Multiphasic Superficial femoral artery (distal): 50 cm/s, Multiphasic Proximal Popliteal artery: 56 cm/s, Multiphasic Mid posterior tibial artery: 77 cm/s, Multiphasic US/US ED complete IMPRESSION: There is no evidence of any hemodynamically significant lower extremity arterial disease by pressure, waveform or duplex Doppler criteria at rest.
--- NOTE | ~2022-04-04 | US_ITS ---
EXAMINATION: NONINVASIVE ASSESSMENT OF THE ARTERIES OF BOTH LOWER EXTREMITIES WITH PVR EXAM AND BILATERAL LOWER EXTREMITY DUPLEX Vanda Dixon MD CLINICAL INFORMATION: Peripheral vascular disease TECHNIQUE: Ankle pulse volume recordings, ankle pressure measurements and ankle brachial indices were obtained of the lower extremity arterial system bilaterally in addition to duplex Doppler techniques with wave form analysis and measurement of velocities in the common femoral, profunda femoral, superficial femoral, popliteal and tibial arteries. The study was performed only at rest. COMPARISON: Arterial duplex on 07/10/2020 FINDINGS: a) AT REST: RIGHT LE. The right ankle-brachial index is: 1.17 * >0.97-1.25 = normal - no significant arterial disease * 0.75-0.96 = mild peripheral arterial disease * 0.5-0.74 = moderate peripheral arterial disease * <0.50 = severe peripheral arterial disease 2. Right ankle pressure: normal. 3. Right ankle PVR waveform: normal. 4. Right direct duplex Doppler findings: Common femoral artery: 105 cm/s, Multiphasic Profunda femoris artery: 53 cm/s, Multiphasic Superficial femoral artery (proximal): 101 cm/s, Multiphasic Superficial femoral artery (mid): 76 cm/s, Multiphasic Superficial femoral artery (distal): 84 cm/s, Multiphasic Proximal Popliteal artery: 57 cm/s, Multiphasic Mid posterior tibial artery: 61 cm/s, Multiphasic LEFT LE. The left ankle-brachial index is: 1.16 * >0.97-1.25 = normal - no significant arterial disease * 0.75-0.96 = mild peripheral arterial disease * 0.5-0.74 = moderate peripheral arterial disease * <0.50 = severe peripheral arterial disease 2. Left ankle pressure: normal. 3. Left ankle PVR waveform: normal. 4. Left direct duplex Doppler findings: Common femoral artery: 94 cm/s, Multiphasic Profunda femoris artery: 52 cm/s, Multiphasic Superficial femoral artery (proximal): 76 cm/s, Multiphasic Superficial femoral artery (mid): 75 cm/s, Multiphasic Superficial femoral artery (distal): 50 cm/s, Multiphasic Proximal Popliteal artery: 56 cm/s, Multiphasic Mid posterior tibial artery: 77 cm/s, Multiphasic US/US arterial duplex LE BI IMPRESSION: There is no evidence of any hemodynamically significant lower extremity arterial disease by pressure, waveform or duplex Doppler criteria at rest.
== END 2022-04-04 12:34 | disposition home or self-care (01) ==
LOC: HO.US 12:33
PROVIDERS: Visit Provider Surgery Vascular Surgery
DX: I70.213 Atherosclerosis of native arteries of extremities with intermittent claudication, bilateral legs (principal)
CPT/HCPCS: 93923; 93925

== ENCOUNTER → 2022-05-04 09:34 | Outpatient (BNVA) | payer OTHER, SELFPAY | PROVIDERS: PCP Internal Medicine; Visit Provider Internal Medicine Endocrinology, Diabetes & Metabolism | DX: E11.65 Type 2 diabetes mellitus with hyperglycemia (principal); E78.5 Hyperlipidemia, unspecified; Z79.4 Long term (current) use of insulin; Z79.899 Other long term (current) drug therapy | CPT/HCPCS: 82947; 99212 ==

== ENCOUNTER → 2022-05-08 10:51 | Outpatient (BNVA) | payer OTHER, SELFPAY | PROVIDERS: PCP Internal Medicine; Visit Provider Surgery Vascular Surgery | DX: I73.9 Peripheral vascular disease, unspecified (principal) | CPT/HCPCS: 99212 ==

== ENCOUNTER 2022-05-23 09:12 | Outpatient (REF) | payer OTHER, SELFPAY ==
--- NOTE | 2022-05-23 09:17 | ECG_ITS ---
Test Reason : preop Blood Pressure : / mmHG Vent. Rate : 075 BPM Atrial Rate : 075 BPM P-R Int : 148 ms QRS Dur : 080 ms QT Int : 376 ms P-R-T Axes : 054 -29 009 degrees QTc Int : 419 ms Normal sinus rhythm Normal ECG When compared with ECG of 23-JUL-2017 20:01, Nonspecific T wave abnormality has replaced inverted T waves in Inferior leads Referred By: Viky Campuzano Electronically Signed By:IVAN DELCID MD
[2022-05-23 09:30] LABS: MANUAL DIFF FLAG NO
[2022-05-23 10:05] LABS: Basophils Percent Auto 0.3 % (0-2); Eosinophils Absolute Auto 0.3 X10*3/uL (0.0-0.4); Eosinophils Percent Auto 2.8 % (0-4); Hematocrit 40.6 % (37.0-47.0); Hemoglobin 13.2 g/dl (12.0-16.0); Imm Gran Abs Auto 0.03 X10*3/uL (0.00-0.03); Imm Gran Pct Auto 0.3 % (0.0-0.4); Lymphocytes Absolute Auto 3.6 X10*3/uL (1.2-4.9); Lymphocytes Percent Auto 34.1 % (20-40); Mean Corpuscular HGB Conc 32.5 g/dl (31.0-35.0); Mean Corpuscular Hemoglobin 28.3 pg (27.0-33.0); Mean Corpuscular Volume 87.1 fL (80.0-98.0); Mean Platelet Volume 8.9 fL (9.4-12.3); Monocytes Absolute Auto 0.5 X10*3/uL (0.1-1.2); Monocytes Percent Auto 5.1 % (2-11); Neutrophils Absolute Auto 6.1 x10*3/uL (2.0-8.3); Neutrophils Percent Auto 57.4 % (45-73); Platelet Count 355 X10*3/uL (160-400); Red Blood Count 4.66 X10*6/uL (4.20-5.50); White Blood Count 10.6 X10*3/uL (4.8-10.8)
[2022-05-23 10:46] LABS: Creatinine Urine 115.41 mg/dL
[2022-05-23 12:32] LABS: Alanine Aminotransferase 19 U/L (0-31); Albumin Level 4.1 g/dL (3.5-5.0); Alkaline Phosphatase 54 U/L (39-117); Anion Gap 14 (12-20); Aspartate Amino Transferase 11 U/L (5-31); Bilirubin Total 0.8 mg/dL (0.0-1.0); Blood Urea Nitrogen 9 mg/dL (9-16); Calcium 9.3 mg/dL (8.4-10.2); Carbon Dioxide 25 mmol/L (22-29); Chloride 107 mmol/L (96-108); Cholesterol 143 mg/dL; Estimated Glomerular Filt Rate > 60; Glucose Fasting 104 mg/dL (60-99); HDL Cholesterol 38 mg/dL; LDL Cholesterol Calculated 79 mg/dl; Potassium 4.3 mmol/L (3.3-5.1); Sodium 142 mmol/L (135-145); Thyroid Stimulating Hormone 1.14 uIU/mL (0.32-4.0); Total Protein 6.2 g/dL (6.5-8.0); Triglycerides 131 mg/dL; Vitamin D 25-OH Total 28.6 ng/mL (>30)
== END 2022-05-23 09:13 | disposition home or self-care (01) ==
LOC: HO.LAB 09:12
PROVIDERS: PCP Internal Medicine; Visit Provider Internal Medicine
DX: Z01.818 Encounter for other preprocedural examination (principal); E11.65 Type 2 diabetes mellitus with hyperglycemia; E55.9 Vitamin D deficiency, unspecified; E78.5 Hyperlipidemia, unspecified; E06.3 Autoimmune thyroiditis; D64.9 Anemia, unspecified; M25.569 Pain in unspecified knee
CPT/HCPCS: 36415; 80053; 80061; 82043; 82306; 84443; 85025; 93005

== ENCOUNTER 2022-11-14 11:06 | Outpatient (REF) | payer OTHER, SELFPAY ==
[2022-11-14 12:19] LABS: Alanine Aminotransferase 16 U/L (0-31); Albumin Level 4.1 g/dL (3.5-5.0); Alkaline Phosphatase 54 U/L (39-117); Anion Gap 14 (12-20); Aspartate Amino Transferase 12 U/L (5-31); Bilirubin Total 0.6 mg/dL (0.0-1.0); Blood Urea Nitrogen 8 mg/dL (9-16); Calcium 9.3 mg/dL (8.4-10.2); Carbon Dioxide 24 mmol/L (22-29); Chloride 109 mmol/L (96-108); Cholesterol 129 mg/dL (<200); Estimated Glomerular Filt Rate > 60; Glucose Fasting 115 mg/dL (60-99); HDL Cholesterol 37 mg/dL (>40); LDL Cholesterol Calculated 73 mg/dL (<100); Potassium 3.6 mmol/L (3.3-5.1); Sodium 143 mmol/L (135-145); Total Protein 6.6 g/dL (6.5-8.0); Triglycerides 99 mg/dL (<150)
[2022-11-14 12:34] LABS: Thyroid Stimulating Hormone 2.08 uIU/mL (0.32-4.0); Vitamin D 25-OH Total 30.2 ng/mL (>30)
[2022-11-14 13:56] LABS: Creatinine Urine 102.89 mg/dL; Microalbum/Creatinine Ratio Ur 6.8 ug/mg cr (<30)
== END 2022-11-14 11:07 | disposition home or self-care (01) ==
LOC: HO.LAB 11:06
PROVIDERS: PCP Internal Medicine; Visit Provider Internal Medicine
DX: E11.65 Type 2 diabetes mellitus with hyperglycemia (principal); E78.5 Hyperlipidemia, unspecified; E06.3 Autoimmune thyroiditis; E55.9 Vitamin D deficiency, unspecified
CPT/HCPCS: 36415; 80053; 80061; 82043; 82306; 82570; 84443

== ENCOUNTER 2022-11-19 09:45 | Outpatient (AMB) | payer OTHER, SELFPAY ==
--- NOTE | 2022-11-19 09:59 | MHC.PC.OV ---
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 Accompanied by: Self / Same As Patient Allergies codeine [CODEINE] Allergy (Intermediate, Verified 11/19/22 10:13) NAUSEA, nausea and vomiting Medication List - Last Reconciled 11/19/22 by Viky Campuzano MD acetaminophen (Tylenol Extra Strength) 500 mg PO BID PRN 90 days atorvastatin 80 mg PO BEDTIME 90 days baclofen 10 mg PO TID PRN 30 days blood sugar diagnostic (FreeStyle Test strips) Use 4 test strip once a day blood-glucose meter (FreeStyle Lite Meter kit) As directed canagliflozin (Invokana) 300 mg PO DAILY 90 days cholecalciferol (vitamin D3) 25 mcg PO DAILY 90 days dulaglutide (Trulicity) 1.5 mg (0.5 mL) subcut QWEEK gabapentin 600 mg PO TID 30 days lancets (FreeStyle Lancets) Use 1 lancet once a day lancets (TRUEplus Lancets) As directed levothyroxine 75 mcg PO DAILY 90 days metformin ER 1,500 mg (2 x 750 mg) PO DAILY 30 days ondansetron HCl 8 mg PO Q12H PRN 10 days pantoprazole 40 mg PO DAILY 90 days pen needle, diabetic (UltiCare Pen Needle) Use 1 pen needle once a day sumatriptan succinate 25 mg PO Q2-4H PRN 30 days zolpidem 10 mg PO BEDTIME PRN 30 days Tobacco use date assessed: 03/13/22 Dental Screening Dental Screen Date: 11/19/22 Did you have a dental visit in the last 12 months?: No Did you have a dental problem in the last 6 months where you did not have access to dental care?: No Was dental information given to patient?: Patient has dentist HPI HPI Comments History of Present Illness Details This is a 57-year-old female with diabetes mellitus type 2 and bipolar depression that comes for her physical exam. As per patient last A1c November 14 was elevated but her fasting blood glucose is 115. Bipolar depression has been in remission. Last mammogram was 2021. No need for Pap smears due to hysterectomy for benign reasons. As per patient last colonoscopy was about 2008 and it was done at [facility] but I can not find the report. No chest pain or shortness of breath. LDL close to goal. [facility]LY [facility] Medical History (Updated 11/19/22 @ 10:27 by Viky Campuzano MD) Ingrown toenail Mild recurrent major depression Right knee pain Skin mole Dyslipidemia Fear of needles Depression with anxiety Bipolar disorder Insomnia Autoimmune thyroiditis Diabetes mellitus Knee pain Surgical History H/O hysterectomy for benign disease Previous section Hx of cholecystectomy Hx of appendectomy History of total right knee replacement Family History Father Heart disease Mother Brain aneurysm COPD (chronic obstructive pulmonary disease) Social History Housing: House Alcohol intake: former Patient Tobacco Use Status: Former Tobacco user Tobacco use type: Cigarette e-Cigarette/Vaping Use: Never Used Second Hand Smoke Exposure: No service: No Current occupational status: unemployed Cognitive needs: No Hearing needs: No Vision needs: Yes (Glasses.) Questionnaire Thrive Questionnaire Date Thrive assessed: 03/13/22 АННА-7 AMB Questionnaire АННА-7 Date АННА - 7 assessed: 03/13/22 Source: Developed by Drs. Clint Adair, Sameera Galloway, Paul Polanco and colleagues, with an educational sandoval from [employer]. Review of Systems Const All systems reviewed & are unremarkable except as noted in HPI and below Eyes Reports no additional complaints, Denies change in vision and Denies other visual disturbances Card Denies chest pain at rest, Denies chest pain with activity, Denies edema, Denies irregular heart rhythm, Denies claudication, Denies dyspnea, Denies dyspnea on exertion, Denies orthopnea, Denies paroxysmal nocturnal dyspnea and Denies slow heart rate Resp Denies cough, Denies dyspnea and Denies dyspnea on exertion GI Denies abdominal pain, Denies change in bowel habits, Denies excessive flatus, Denies nausea and Denies vomiting Denies urinary incontinence, Denies urinary hesitancy and Denies urinary urgency Musc Denies abnormal gait, Denies atrophy, Denies deformity and Denies limited range of motion Skin/Breast Denies bleeding lesions, Denies changing lesions and Denies rash Neuro Denies abnormal gait and Denies lack of coordination Physical exam (Primary Care) Vital Signs: Last Vital Signs BP 108/70 11/19/22 10:01 BMI result Body Mass Index 30.0 Tobacco/Smoking Status: Tobacco use Status Tobacco use date assessed 03/13/22 11/19/22 09:59 Patient Tobacco Use Status Former Tobacco user 11/19/22 09:59 Tobacco use type Cigarette 11/19/22 09:59 e-Cigarette/Vaping Use Never Used 11/19/22 09:59 Thrive Assessment: Date of Thrive Assessment Date Thrive assessed 03/13/22 11/19/22 09:59 Const Orientation/consciousness: patient oriented x3 HENMT Head: Yes normal to inspection, Yes normocephalic and Yes atraumatic Ears: external ears normal Eyes General: appearance normal, both eyes and all related structures Eyelids: Yes eyelids normal Conjunctivae: conjunctivae normal Neck Neck: Yes normal visual inspection and Yes supple Resp Effort & Inspection: normal respiratory effort Auscultation: clear to auscultation bilaterally Cardio Jugular venous distension: no JVD Rate: regular rate Rhythm: regular rhythm Heart sounds: S1 normal heart sound present and S2 normal heart sound present GI Inspection: Yes normal to inspection Palpation (GI): Soft to palpation and nontender Auscultation: normal bowel sounds Skin General skin exam: no rashes or lesions noted Neuro General: patient oriented x3 and no focal motor deficits Extrem General: Yes full ROM Psych Appearance: grossly normal Office Procedures Flu Questionnaire Does the patient have a severe egg allergy?: No Does the patient have severe life threatening allergies?: No Does the patient have a fever or illness today?: No Has the patient ever had Guillain-[place] Syndrome?: No Has the patient ever had any past reaction to a flu shot?: No Immunizations flu vacc [id number] 6mos up(PF) 60 mcg(15 mcgx4)/0.5 mL IM syringe Performing Provider: Viky Campuzano MD [facility] Administered by: TEODORO Farias on 11/19/22 10:34 Dose Route Admin Location Dispensed Lot Number Expiration Date NDC Sweatband Drummer 0.5 mL IM Left Deltoid 0.5 mL [id number] 08/11/23 50986-510-78 [employer] VIS Given Date VIS Provided VIS Publication Date 11/19/22 Single Vaccine 20 Eligibility Eligibility Date Funding Source Not [facility] Eligible 11/19/22 Private Assessment and Plan Assessment & Plan (1) Physical exam: Code(s): Z00.00 - Encounter for general adult medical examination without abnormal findings Plan: Repeat in a year (2) Bipolar depression: Code(s): F31.9 - Bipolar disorder, unspecified Plan: In remission. (3) Diabetes mellitus: Code(s): E11.9 - Type 2 diabetes mellitus without complications Qualifiers: Diabetes mellitus type: type 2 Diabetes mellitus jail insulin use: without emt intermediate use Diabetes mellitus complication status: with hyperglycemia Qualified Code(s): E11.65 - Type 2 diabetes mellitus with hyperglycemia Plan: Continue Trulicity, Invokana and metformin. A1c goal is equal or less than 7%. Orders: Orders Lipid Panel 4 Months E78.5 - Hyperlipidemia, unspecified Microalbumin, Random (w Creat) 4 Months E11.9 - Type 2 diabetes mellitus without complications Influenza [id number] Immunization Today Z23 - Encounter for immunization Vitamin D 25-OH Total 4 Months E55.9 - Vitamin D deficiency, unspecified Comprehensive [place]. Panel Fast 4 Months Z00.00 - Encounter for general adult medical examination without abnormal findings Referrals Gastroenterology Referral Z12.11 - Encounter for screening for malignant neoplasm of colon Coding Level of Care Code Est Pt Prev Care 40-64y(96731) Diagnoses Physical exam Z00.00 Bipolar depression F31.9 Type 2 diabetes mellitus with hyperglycemia, without long-term current use of insulin E11.65 Diabetes mellitus type: type 2 Diabetes mellitus jail insulin use: without emt intermediate use Diabetes mellitus complication status: with hyperglycemia Time Spent (min) 35
[2022-11-19 10:01] VITALS: BP 108/70
== END 2022-11-19 10:36 | disposition home or self-care (01) ==
PROVIDERS: PCP Internal Medicine; Visit Provider Internal Medicine
DX: Z00.00 Encounter for general adult medical examination without abnormal findings (principal); F31.9 Bipolar disorder, unspecified; E11.65 Type 2 diabetes mellitus with hyperglycemia; Z23 Encounter for immunization
CPT/HCPCS: 90471; 90686; 99396

== ENCOUNTER 2022-11-21 10:48 | Outpatient (AMB) | payer OTHER, SELFPAY ==
--- NOTE | 2022-11-21 11:01 | MHC.OFFVIS ---
Intake Vital Signs 11/21/22 11:02 Height 5 ft 1 in Weight 136 lb 9 oz BMI 25.8 BP 122/74 Blood Pressure Location Rt brachial Position Sitting Respiration 15 Pulse 63 Pulse Source Pulse Oximeter Pulse Oximetry (%) 98 Oxygen Delivery Method Room Air Intake Visit Reasons: [id number] Intake Note: Pt presents to the office for new patient evaluation. She states since having her right knee replaced in 2019 she has some nerve damage. She also notes decreased sensation, tingling and cold right foot. She is uncertain if this is related to her surgery or the fact that she has diabetes. She also reports sleep disturbance. She has trouble both falling and staying asleep. She takes Ambien for this but feels it is ineffective. She denies feeling tired throughout the day, even if she does not get a full nights rest. This has been going on for about 15 years. Allergies codeine [CODEINE] Allergy (Intermediate, Verified 11/21/22 11:10) NAUSEA, nausea and vomiting Medication List - Last Reconciled 11/21/22 by Debora Delcid MD acetaminophen (Tylenol Extra Strength) 500 mg PO BID PRN 90 days atorvastatin 80 mg PO BEDTIME 90 days baclofen 10 mg PO TID PRN 30 days blood sugar diagnostic (FreeStyle Test strips) Use 4 test strip once a day blood-glucose meter (FreeStyle Lite Meter kit) As directed canagliflozin (Invokana) 300 mg PO DAILY 90 days cholecalciferol (vitamin D3) 25 mcg PO DAILY 90 days dulaglutide (Trulicity) 1.5 mg (0.5 mL) subcut QWEEK gabapentin 600 mg PO TID 30 days lancets (FreeStyle Lancets) Use 1 lancet once a day lancets (TRUEplus Lancets) As directed levothyroxine 75 mcg PO DAILY 90 days metformin ER 1,500 mg (2 x 750 mg) PO DAILY 30 days ondansetron HCl 8 mg PO Q12H PRN 10 days pantoprazole 40 mg PO DAILY 90 days pen needle, diabetic (UltiCare Pen Needle) Use 1 pen needle once a day sumatriptan succinate 25 mg PO Q2-4H PRN 30 days zolpidem 10 mg PO BEDTIME PRN 30 days HPI HPI Comments History of Present Illness Details 57y/o female with diabetes, insomnia comes for further management of neuropathy. SHe reports numbness, tingling, burning pain, soreness in her feet. It started after her knee surgery in Feb.She has had diabetes since 2014 and not well controlled now . Her Hg A 1 C is 8 . Prior to her knee surgery she was doing well.she also reports chronic insomnia . she has trouble falling asleep and staying asleep. SHe has a sleep study many years ago and was told she has abnormal leg movements.she was diagnosed with LISET and PLMS - was given CPAP but does not use it. she has some lower left back pain . she also has some neck pain and occipital pain .she has migraines 3-5 /month . she uses excedrin migraine or sumatriptan . [facility] Medical History (Updated 11/21/22 @ 11:35 by Debora Delcid MD) Snoring Insomnia Ingrown toenail Mild recurrent major depression Right knee pain Skin mole Dyslipidemia Fear of needles Depression with anxiety Bipolar disorder Insomnia Autoimmune thyroiditis Diabetes mellitus Knee pain Surgical History H/O hysterectomy for benign disease Previous section Hx of cholecystectomy Hx of appendectomy History of total right knee replacement Family History Father Heart disease Mother Brain aneurysm COPD (chronic obstructive pulmonary disease) Social History Housing: House Alcohol intake: former Patient Tobacco Use Status: Former Tobacco user Tobacco use type: Cigarette e-Cigarette/Vaping Use: Never Used Second Hand Smoke Exposure: No service: No Current occupational status: unemployed Cognitive needs: No Hearing needs: No Vision needs: Yes (Glasses.) Review of Systems Const All systems reviewed & are unremarkable except as noted in HPI and below Eyes Reports no additional complaints, Denies change in vision and Denies other visual disturbances Card Denies chest pain at rest, Denies chest pain with activity, Denies edema, Denies irregular heart rhythm, Denies claudication, Denies dyspnea, Denies dyspnea on exertion, Denies orthopnea, Denies paroxysmal nocturnal dyspnea and Denies slow heart rate Resp Denies cough, Denies dyspnea and Denies dyspnea on exertion GI Denies abdominal pain, Denies change in bowel habits, Denies excessive flatus, Denies nausea and Denies vomiting Denies urinary incontinence, Denies urinary hesitancy and Denies urinary urgency Musc Denies abnormal gait, Denies atrophy, Denies deformity and Denies limited range of motion Skin/Breast Denies bleeding lesions, Denies changing lesions and Denies rash Neuro Denies abnormal gait and Denies lack of coordination Physical Exam Vital Signs: Last Vital Signs Pulse 63 11/21/22 11:02 Resp 15 11/21/22 11:02 BP 122/74 11/21/22 11:02 Pulse Ox 98 11/21/22 11:02 Oxygen Delivery Method Room Air 11/21/22 11:02 BMI result Body Mass Index 25.8 Const General: cooperative, healthy appearing, comfortable and no acute distress Nutritional Appearance: average body habitus Orientation/consciousness: patient oriented x3 Eyes Pupils: Equal, round and reactive pupils present Neuro General: patient oriented x3, tone normal, moves all extremities and no focal motor deficits Cranial nerves: Yes Facial sensation intact/muscles of mastication intact, Yes Equal, round and reactive pupils present, Yes Bilaterally intact EOM present, Yes Nystagmus not present, Yes Normal facial strength present, Yes Midline tongue present, Yes Symmetric palate elevation present and Yes Ability to bilaterally elevate shoulders present Cognition (Neuro): normal cognition Gait exam (Neuro): Antalgic gait present Motor exam (neuro): 5/5 motor strength present throughout and Normal motor muscle tone present throughout Deep tendon reflexes (DTR's): Right triceps reflex intensity grade: 1+, Left triceps reflex intensity grade: 1+, Rt Biceps (C5, C6): 1+, Left biceps reflex intensity grade: 1+, Right brachioradialis reflex intensity grade: 1+, Left brachioradialis reflex intensity grade: 1+, Right patellar reflex intensity grade: 1+ and Left patellar reflex intensity grade: 1+ Coordination: [id number] test normal Assessment & Plan Assessment & Plan (1) Neuropathy: Comment: diabetic Code(s): G62.9 - Polyneuropathy, unspecified (2) Insomnia: Comment: with h/o LISET and PLM not on treatment Code(s): G47.00 - Insomnia, unspecified Plan I will reevaluate her sleep apnea with home sleep test Discussed about good glucose control I will trial her on magnesium 400mg qhs , alpha lipoic acid and Vit B 2 400mg qam . continue gabapentin 600mg tid F/u with airport screener Orders: Orders RT home sleep study Today G47.00 - Insomnia, unspecified, R06.83 - Snoring Medications: New magnesium oxide 400 mg PO BEDTIME 30 tabs 6RF riboflavin (vitamin B2) 400 mg PO QAM 30 tabs 6RF alpha lipoic acid 600 mg PO DAILY 30 caps 6RF Coding Level of Care Code New Pt Level 4 (22362) Diagnoses Neuropathy G62.9 Insomnia G47.00
[2022-11-21 11:02] VITALS: BP 122/74; PULSE 63; RESP 15; O2SAT 98; BMI 25.8
== END 2022-11-21 11:37 | disposition home or self-care (01) ==
PROVIDERS: Visit Provider Psychiatry & Neurology Neurology
DX: G62.9 Polyneuropathy, unspecified (principal); G47.00 Insomnia, unspecified
CPT/HCPCS: 99204

== ENCOUNTER → 2022-11-21 10:48 | Outpatient (BNVA) | payer OTHER, SELFPAY | PROVIDERS: Visit Provider Psychiatry & Neurology Neurology ==

== ENCOUNTER 2022-12-10 09:19 | Outpatient (REF) | payer OTHER, SELFPAY | END 2022-12-10 09:20 | disposition home or self-care (01) | LOC: HO.MAMMO 09:19 | PROVIDERS: PCP Internal Medicine; Visit Provider Internal Medicine | DX: Z12.31 Encounter for screening mammogram for malignant neoplasm of breast (principal) | CPT/HCPCS: 77063; 77067 ==

== ENCOUNTER → 2022-12-10 09:30 | Outpatient (BNV) | payer OTHER, SELFPAY | PROVIDERS: PCP Internal Medicine; Visit Provider Radiology Diagnostic Radiology | DX: Z12.31 Encounter for screening mammogram for malignant neoplasm of breast (principal) | CPT/HCPCS: 77063; 77067 ==

== ENCOUNTER → 2023-01-02 09:40 | Outpatient (REF) | payer OTHER, SELFPAY | LOC: HO.SL 09:40 | PROVIDERS: PCP Internal Medicine; Visit Provider Psychiatry & Neurology Neurology | DX: G47.00 Insomnia, unspecified (principal); R06.83 Snoring | CPT/HCPCS: 95806 ==

== ENCOUNTER → 2023-01-02 09:50 | Outpatient (BNV) | payer OTHER, SELFPAY | PROVIDERS: PCP Internal Medicine; Visit Provider Internal Medicine | DX: G47.00 Insomnia, unspecified (principal); R06.83 Snoring | CPT/HCPCS: 95806 ==

== ENCOUNTER 2023-01-09 13:21 | Outpatient (REF) | payer OTHER, SELFPAY ==
--- NOTE | ~2023-01-09 | MM_ITS ---
EXAMINATION: BONE DENSITOMETRY CLINICAL INDICATION: Unspecified menopausal and perimenopausal disorder. COMPARISON: This is the patient's baseline examination. TECHNIQUE: Using a [employer] DXA System (software version: 13.1) manufactured by [employer], dual-energy x-ray absorptiometry was performed of the lumbar spine and left hip. The images are of good technical quality. Summary results are attached. FINDINGS: AP SPINE L1-L4: BMD 1.219 g/cm2, Z-score 1.1, T-score 0.3, normal. LEFT FEMUR, NECK: BMD 0.811 g/cm2, Z-score -0.7, T-score -1.6, osteopenia. LEFT FEMUR, TOTAL: BMD 1.001 g/cm2, Z-score 0.6, T-score -0.1, normal. IDENTIFIED RISK FACTORS: Osteoporosis. Low calcium intake. Secondary osteoporosis (early menopause). Hysterectomy. HISTORY OF FRACTURE: None listed. MEDICATIONS: Vitamin D. MM/XR DEXA axial skeleton IMPRESSION: 1. DIAGNOSIS: Osteopenia based on the lowest T-score value of -1.6 in the femoral neck applying World Health Organization criteria. 2. 10-YEAR FRACTURE RISK PREDICTION, FRAX: Major osteoporotic fracture (clinical spine, forearm, hip or shoulder) 7.8%. Hip fracture 0.7%. 3. Treatment Recommendations: NOF guidelines recommend consideration for treatment in postmenopausal women and men age 50 and older presenting with the following: -A hip or vertebral (clinical or morphometric) fracture. -T-score less than or equal to -2.5 at the femoral neck or spine after appropriate evaluation to exclude secondary causes. -Low bone mass at the hip or spine and a 10-year fracture probability by FRAX of greater than or equal to 3% for hip fracture or greater than or equal to 20% for major osteoporotic fracture based on the [place] adapted WHO algorithm. 4. Other Recommendations: All treatment decisions require clinical judgment and consideration of individual patient factors, including patient preferences, comorbidities, previous drug use, risk factors not captured in the FRAX model (e.g. frailty, falls, vitamin D deficiency, increased bone turnover, interval significant decline in bone density) and possible under or overestimation of fracture risk by FRAX. Additional medical evaluation for secondary cause of low bone mineral density may be appropriate. FUTURE SCAN RECOMMENDATION: People with diagnosed cases of osteoporosis or at high risk for fracture should have regular bone mineral density tests. For patients eligible for Medicare, routine testing is allowed once every 2 years. The testing frequency can be increased to one year for patients who have rapidly progressing disease, those who are receiving or discontinuing medical therapy to restore bone mass, or have additional risk factors.
== END 2023-01-09 13:22 | disposition home or self-care (01) ==
LOC: HO.MAMMO 13:21
PROVIDERS: PCP Internal Medicine; Visit Provider Internal Medicine
DX: Z13.820 Encounter for screening for osteoporosis (principal); Z78.0 Asymptomatic menopausal state
CPT/HCPCS: 77080

== ENCOUNTER 2023-03-27 09:45 | Outpatient (AMB) | payer OTHER, SELFPAY ==
--- NOTE | 2023-03-27 09:48 | A.OFFPC_ITS ---
Vital Signs 03/27/23 09:49 Height 5 ft 1 in Weight 153 lb BMI 28.9 BP 110/70 Blood Pressure Location Lt brachial Position Sitting Intake Visit Reasons: dm Intake Note: Patient here for a follow up DM Wharf Tally Clerk Required: No Accompanied by: Self / Same As Patient Allergies codeine [CODEINE] Allergy (Intermediate, Verified 03/27/23 10:05) NAUSEA, nausea and vomiting Medication List - Last Reconciled 03/27/23 by Viky Campuzano MD acetaminophen (Tylenol Extra Strength) 500 mg PO BID PRN 90 days alpha lipoic acid 600 mg PO DAILY atorvastatin 80 mg PO BEDTIME 90 days baclofen 10 mg PO TID PRN 30 days blood sugar diagnostic (FreeStyle Test strips) Use 4 test strip once a day blood-glucose meter (FreeStyle Lite Meter kit) As directed blood-glucose meter (FreeStyle Lite Meter kit) As directed canagliflozin (Invokana) 300 mg PO DAILY 90 days cholecalciferol (vitamin D3) 25 mcg PO DAILY 90 days dulaglutide (Trulicity) 1.5 mg (0.5 mL) subcut QWEEK gabapentin 600 mg PO TID 30 days lancets (FreeStyle Lancets) Use 1 lancet once a day lancets (TRUEplus Lancets) As directed levothyroxine 75 mcg PO DAILY 90 days magnesium oxide 400 mg PO BEDTIME metformin ER 1,500 mg (2 x 750 mg) PO DAILY 30 days ondansetron HCl 8 mg PO Q12H PRN 10 days pantoprazole 40 mg PO DAILY 90 days pen needle, diabetic (UltiCare Pen Needle) Use 1 pen needle once a day riboflavin (vitamin B2) 400 mg PO QAM sumatriptan succinate 25 mg PO Q2-4H PRN 30 days zolpidem 10 mg PO BEDTIME PRN 30 days Tobacco use date assessed: 03/27/23 Dental Screening Dental Screen Date: 03/27/23 Did you have a dental visit in the last 12 months?: No Did you have a dental problem in the last 6 months where you did not have access to dental care?: No Was dental information given to patient?: Patient has dentist HPI HPI Comments History of Present Illness Details This is a 57-year-old female with diabetes mellitus type 2, autoimmune thyroiditis, hyperlipidemia and bipolar depression that comes today for follow- up on her conditions. A1c was 6% in February 2023 therefore within goal. Last TSH was normal and this will be repeated. Blood pressure stable. On statins for elevated cholesterol and lipid panel will be repeated. Her LDL goal should be less than 70. Bipolar depression has been in remission. No chest pain or shortness of breath. [facility] Medical History (Updated 03/27/23 @ 11:11 by Viky Campuzano MD) PVD (peripheral vascular disease) Snoring Insomnia Ingrown toenail Mild recurrent major depression Right knee pain Skin mole Dyslipidemia Fear of needles Depression with anxiety Bipolar disorder Insomnia Autoimmune thyroiditis Diabetes mellitus Knee pain Surgical History H/O hysterectomy for benign disease Previous section Hx of cholecystectomy Hx of appendectomy History of total right knee replacement Family History Father Heart disease Mother Brain aneurysm COPD (chronic obstructive pulmonary disease) Social History Housing: House Alcohol intake: former Patient Tobacco Use Status: Former Tobacco user Tobacco use type: Cigarette e-Cigarette/Vaping Use: Never Used Second Hand Smoke Exposure: No service: No Current occupational status: unemployed Cognitive needs: No Hearing needs: No Vision needs: Yes (Glasses.) Questionnaire PHQ-9 Over the last 2 weeks, how often have you been bothered by any of the following problems? 1. Little interest or pleasure in doing things: not at all 2. Feeling down, depressed, or hopeless: not at all 3. Trouble falling or staying asleep, or sleeping too much: not at all 4. Feeling tired or having little energy: not at all 5. Poor appetite or overeating: not at all 6. Feeling bad about yourself - or that you are a failure or have let yourself or your family down: not at all 7. Trouble concentrating on things, such as reading the newspaper or watching television: not at all 8. Moving or speaking so slowly that other people could have noticed. Or the opposite - being so fidgety or restless that you have been moving around a lot more than usual: not at all 9. Thoughts that you would be better off or of hurting yourself in some way: not at all Total score: 0 Depression Screening Interpretation: Negative Depression Screening Done: Yes 44544 - PHQ-9 Billing: Yes Source: Developed by Drs. Clint Adair, Sameera Galloway, Paul Polanco and colleagues, with an educational sandoval from [employer]. Thrive Questionnaire Date Thrive assessed: 03/27/23 I am a: Patient What is your living situation today?: I have a steady place to live Within the past 12 months, did the food you bought not last and you didn't have the money to get more?: Never true Within the past 12 months, did you worry whether your food would run out before you got money to buy more?: Never true Do you have trouble paying for medicines?: No Do you have trouble getting transportation to medical appointments?: No Do you have trouble paying your heating and electricity bill?: No Do you have trouble taking care of your child, family member or friend?: No Do you have trouble with day-to-day activities such as bathing, preparing meals, shopping, managing finances, etc.?: No Are you currently unemployed and looking for a job?: No Are you interested in more education?: No Please select the resources that you would like help with: None Currently or been in a relationship where the following occur: no concerns reported THRIVE Score: 0 AUDIT C Alcohol Use Questionnaire (AUDIT-C) 1. How often do you have a drink containing alcohol?: Never Total Score: 0 Score Reviewed/Action Taken: No АННА-7 AMB Questionnaire АННА-7 Date АННА - 7 assessed: 03/27/23 Feeling nervous, anxious, or on edge: 1 = Several days Not being able to stop or control worryin = Not at all Worrying too much about different things: 0 = Not at all Trouble relaxin = Not at all Being so restless that it is hard to sit still: 0 = Not at all Becoming easily annoyed or irritable: 0 = Not at all Feeling afraid as if something awful might happen: 0 = Not at all Total АННА-7 score (0-4 normal; 5-9 mild; 10-14 moderate; 15-21 severe): 1 Source: Developed by Sameera Pena, Paul Polanco and colleagues, with an educational sandoval from [employer]. АННА-7 Assessment Billing АННА-7 Assessment Tool: АННА-7 Assessment 93980 Review of Systems Const All systems reviewed & are unremarkable except as noted in HPI and below Eyes Reports no additional complaints, Denies change in vision and Denies other visual disturbances Card Denies chest pain at rest, Denies chest pain with activity, Denies edema, Denies irregular heart rhythm, Denies claudication, Denies dyspnea, Denies dyspnea on exertion, Denies orthopnea, Denies paroxysmal nocturnal dyspnea and Denies slow heart rate Resp Denies cough, Denies dyspnea and Denies dyspnea on exertion GI Denies abdominal pain, Denies change in bowel habits, Denies excessive flatus, Denies nausea and Denies vomiting Denies urinary incontinence, Denies urinary hesitancy and Denies urinary urgency Musc Denies abnormal gait, Denies atrophy, Denies deformity and Denies limited range of motion Skin/Breast Denies bleeding lesions, Denies changing lesions and Denies rash Neuro Denies abnormal gait, Denies behavioral changes and Denies lack of coordination Psych Denies behavioral changes Physical exam (Primary Care) Vital Signs: Last Vital Signs BP 110/70 03/27/23 09:49 BMI result Body Mass Index 28.9 Tobacco/Smoking Status: Tobacco use Status Tobacco use date assessed 03/27/23 03/27/23 09:57 Patient Tobacco Use Status Former Tobacco user 03/27/23 09:57 Tobacco use type Cigarette 03/27/23 09:57 e-Cigarette/Vaping Use Never Used 03/27/23 09:57 PHQ-9: PHQ-9 Score PHQ-9: Total score 0 03/27/23 10:10 Depression Screening Interpretation: Negative Thrive Assessment: Date of Thrive Assessment Date Thrive assessed 03/27/23 03/27/23 09:57 Currently or been in a relationship where the following occur: no concerns reported Eyes General: appearance normal, both eyes and all related structures Eyelids: Yes eyelids normal Conjunctivae: conjunctivae normal Neck Neck: Yes normal visual inspection and Yes supple Resp Effort & Inspection: normal respiratory effort Auscultation: clear to auscultation bilaterally Cardio Jugular venous distension: no JVD Rate: regular rate Rhythm: regular rhythm Heart sounds: S1 normal heart sound present and S2 normal heart sound present Extrem General: Yes full ROM Psych Appearance: grossly normal Assessment and Plan Assessment & Plan (1) Diabetes mellitus: Code(s): E11.9 - Type 2 diabetes mellitus without complications Qualifiers: Diabetes mellitus type: type 2 Diabetes mellitus residential insulin use: without residential use Diabetes mellitus complication status: with hyperglycemia Qualified Code(s): E11.65 - Type 2 diabetes mellitus with hyp erglycemia Plan: Continue metformin, Trulicity and Invokana. A1c goal is equal or less than 7%. (2) Bipolar depression: Code(s): F31.9 - Bipolar disorder, unspecified Plan: In remission. (3) Autoimmune thyroiditis: Code(s): E06.3 - Autoimmune thyroiditis Plan: Continue levothyroxine. Repeat TSH. (4) Hyperlipidemia LDL goal <70: Code(s): E78.5 - Hyperlipidemia, unspecified Plan: Continue statins. Repeat lipid panel. LDL goal is less than 70. Orders: Orders Vitamin D 25-OH Total Today E55.9 - Vitamin D deficiency, unspecified Microalbumin, Random (w Creat) Today E11.9 - Type 2 diabetes mellitus without complications Comprehensive [place]. Panel Fast Today E78.5 - Hyperlipidemia, unspecified Lipid Panel Today E78.5 - Hyperlipidemia, unspecified Thyroid Stimulating Hormone Today E06.3 - Autoimmune thyroiditis Coding Level of Care Code Est Pt Level 4 (96239) Diagnoses Type 2 diabetes mellitus with hyperglycemia, without long-term current use of insulin E11.65 Diabetes mellitus type: type 2 Diabetes mellitus oil heaterman insulin use: without residential use Diabetes mellitus complication status: with hyperglycemia Bipolar depression F31.9 Autoimmune thyroiditis E06.3 Hyperlipidemia LDL goal <70 E78.5 Additional Codes АННА-7 Assessment Billing - АННА-7 Assessment Tool: АННА-7 Assessment 72274 ([id number]) Time Spent (min) 24
[2023-03-27 09:49] VITALS: BP 110/70; BMI 28.9
== END 2023-03-27 10:17 | disposition home or self-care (01) ==
PROVIDERS: PCP Internal Medicine; Visit Provider Internal Medicine
DX: E11.65 Type 2 diabetes mellitus with hyperglycemia (principal); F31.9 Bipolar disorder, unspecified; E06.3 Autoimmune thyroiditis; E78.5 Hyperlipidemia, unspecified
CPT/HCPCS: 99214

== ENCOUNTER 2023-04-17 07:43 | Outpatient (AMB) | payer OTHER, SELFPAY ==
[2023-04-17 07:47] VITALS: BP 98/70; PULSE 76; RESP 16; O2SAT 96; BMI 28.9
--- NOTE | 2023-04-17 07:47 | MHC.OFFVIS ---
Intake Vital Signs 04/17/23 07:47 Height 5 ft 1 in Weight 153 lb BMI 28.9 BP 98/70 Blood Pressure Location Rt brachial Position Sitting Respiration 16 Pulse 76 Pulse Source Pulse Oximeter Pulse Oximetry (%) 96 Oxygen Delivery Method Room Air Intake Visit Reasons: 3 mo f/u - Polyneuropathy-CONF Intake Note: Ptmpresent for 3 month follow up for polyneuropathy. Monitoring Tech Required: No Allergies codeine [CODEINE] Allergy (Intermediate, Verified 04/17/23 07:47) NAUSEA, nausea and vomiting Medication List - Last Reconciled 04/17/23 by Debora Delcid MD acetaminophen (Tylenol Extra Strength) 500 mg PO BID PRN 90 days alpha lipoic acid 600 mg PO DAILY atorvastatin 80 mg PO BEDTIME 90 days baclofen 10 mg PO TID PRN 30 days blood sugar diagnostic (FreeStyle Test strips) Use 4 test strip once a day blood-glucose meter (FreeStyle Lite Meter kit) As directed blood-glucose meter (FreeStyle Lite Meter kit) As directed canagliflozin (Invokana) 300 mg PO DAILY 90 days cholecalciferol (vitamin D3) 25 mcg PO DAILY 90 days dulaglutide (Trulicity) 1.5 mg (0.5 mL) subcut QWEEK gabapentin 600 mg PO TID 30 days lancets (FreeStyle Lancets) Use 1 lancet once a day lancets (TRUEplus Lancets) As directed levothyroxine 75 mcg PO DAILY 90 days magnesium oxide 400 mg PO BEDTIME metformin ER 1,500 mg (2 x 750 mg) PO DAILY 30 days ondansetron HCl 8 mg PO Q12H PRN 10 days pantoprazole 40 mg PO DAILY 90 days pen needle, diabetic (UltiCare Pen Needle) Use 1 pen needle once a day riboflavin (vitamin B2) 400 mg PO QAM sumatriptan succinate 25 mg PO Q2-4H PRN 30 days zolpidem 10 mg PO BEDTIME PRN 30 days zolpidem 10 mg PO BEDTIME HPI HPI Comments History of Present Illness Details 57y/o female with diabetes, insomnia comes for follow up of neuropathy, migraines.she could not tolerate magnesium. SHe reports numbness, tingling, burning pain, soreness in her feet have improved since last visit . It started after her knee surgery in Feb.diabetes since 2013 Her Hg A 1 C is 6 now , was 8 in the past . Prior to her knee surgery she was doing well.she also reports chronic insomnia . she has trouble falling asleep and staying asleep. SHe has a sleep study many years ago and was told she has abnormal leg movements.she was diagnosed with LISET and PLMS - was given CPAP but does not use it. But recent home test was normal . she has some lower left back pain . she also has some neck pain and occipital pain .she has migraines 3- 4/month . she uses excedrin migraine or sumatriptan . [facility] Medical History PVD (peripheral vascular disease) Snoring Insomnia Ingrown toenail Mild recurrent major depression Right knee pain Skin mole Dyslipidemia Fear of needles Depression with anxiety Bipolar disorder Insomnia Autoimmune thyroiditis Diabetes mellitus Knee pain Surgical History H/O hysterectomy for benign disease Previous section Hx of cholecystectomy Hx of appendectomy History of total right knee replacement Family History Father Heart disease Mother Brain aneurysm COPD (chronic obstructive pulmonary disease) Social History Housing: House Alcohol intake: former Patient Tobacco Use Status: Former Tobacco user Tobacco use type: Cigarette e-Cigarette/Vaping Use: Never Used Second Hand Smoke Exposure: No service: No Current occupational status: unemployed Cognitive needs: No Hearing needs: No Vision needs: Yes (Glasses.) Physical Exam Vital Signs: Last Vital Signs Pulse 76 04/17/23 07:47 Resp 16 04/17/23 07:47 BP 98/70 04/17/23 07:47 Pulse Ox 96 04/17/23 07:47 Oxygen Delivery Method Room Air 04/17/23 07:47 BMI result Body Mass Index 28.9 Const General: cooperative, healthy appearing, comfortable and no acute distress Nutritional Appearance: average body habitus Orientation/consciousness: patient oriented x3 Eyes Pupils: Equal, round and reactive pupils present Neuro General: patient oriented x3, tone normal, moves all extremities and no focal motor deficits Cranial nerves: Yes Facial sensation intact/muscles of mastication intact, Yes Equal, round and reactive pupils present, Yes Bilaterally intact EOM present, Yes Nystagmus not present, Yes Normal facial strength present, Yes Midline tongue present, Yes Symmetric palate elevation present and Yes Ability to bilaterally elevate shoulders present Cognition (Neuro): normal cognition Gait exam (Neuro): Antalgic gait present Motor exam (neuro): 5/5 motor strength present throughout and Normal motor muscle tone present throughout Deep tendon reflexes (DTR's): Right triceps reflex intensity grade: 1+, Left triceps reflex intensity grade: 1+, Rt Biceps (C5, C6): 1+, Left biceps reflex intensity grade: 1+, Right brachioradialis reflex intensity grade: 1+, Left brachioradialis reflex intensity grade: 1+, Right patellar reflex intensity grade: 1+ and Left patellar reflex intensity grade: 1+ Coordination: [id number] test normal Assessment & Plan Assessment & Plan (1) Neuropathy: Comment: diabetic Code(s): G62.9 - Polyneuropathy, unspecified (2) Insomnia: Comment: with h/o LISET and PLM not on treatment Code(s): G47.00 - Insomnia, unspecified Plan change baclofen 10 mg qam and 20 mg qhs Discussed about good glucose control alpha lipoic acid and Vit B 2 400mg qam . continue gabapentin 600mg tid F/u with licensing and registration director Recommended to read SAY GOOD NIGHT TO INSOMNIA by Ahmet Gilmore Coding Level of Care Code Est Pt Level 4 (44616) Diagnoses Neuropathy G62.9 Insomnia G47.00
== END 2023-04-17 11:19 | disposition home or self-care (01) ==
PROVIDERS: PCP Internal Medicine; Visit Provider Psychiatry & Neurology Neurology
DX: G62.9 Polyneuropathy, unspecified (principal); G47.00 Insomnia, unspecified
CPT/HCPCS: 99214

== ENCOUNTER → 2023-04-17 07:43 | Outpatient (BNVA) | payer OTHER, SELFPAY | PROVIDERS: PCP Internal Medicine; Visit Provider Psychiatry & Neurology Neurology | DX: G62.9 Polyneuropathy, unspecified (principal); G47.00 Insomnia, unspecified | CPT/HCPCS: 99212 ==

== ENCOUNTER 2023-06-11 08:16 | Outpatient (AMB) | payer OTHER, SELFPAY ==
[2023-06-11 08:25] VITALS: BP 102/70; PULSE 73; BMI 29.3
--- NOTE | 2023-06-11 08:25 | MHC.OFFVIS ---
Vital Signs 06/11/23 08:25 Height 5 ft 1 in Weight 155 lb 3.287 oz BMI 29.3 BP 102/70 Blood Pressure Location Lt brachial Position Sitting Pulse 73 Pulse Source Pulse Oximeter Intake Visit Reasons: DM/Trulicity refill Intake Note: Patient presents today to follow up on D2MT. Last Diabetic Eye exam: 04/2023 Last Podiatry Visit: 04/2023 Random Glucose: 178 mg/dl HgA1c: 7.0% Dispersion Mixer Required: No Accompanied by: Self / Same As Patient Allergies codeine [CODEINE] Allergy (Intermediate, Verified 06/11/23 08:31) NAUSEA, nausea and vomiting Medication List - Last Reconciled 06/11/23 by Clint Frye MD acetaminophen (Tylenol Extra Strength) 500 mg PO BID PRN 90 days alpha lipoic acid 600 mg PO DAILY atorvastatin 80 mg PO BEDTIME 90 days baclofen 10 mg PO TID PRN 30 days blood sugar diagnostic (FreeStyle Test strips) Use 4 test strip once a day blood-glucose meter (FreeStyle Lite Meter kit) As directed blood-glucose meter (FreeStyle Lite Meter kit) As directed canagliflozin (Invokana) 300 mg PO DAILY 90 days cholecalciferol (vitamin D3) 25 mcg PO DAILY 90 days dulaglutide (Trulicity) 1.5 mg (0.5 mL) subcut QWEEK gabapentin 600 mg PO TID 30 days lancets (FreeStyle Lancets) Use 1 lancet once a day lancets (TRUEplus Lancets) As directed levothyroxine 75 mcg PO DAILY 90 days magnesium oxide 400 mg PO BEDTIME metformin ER 1,500 mg (2 x 750 mg) PO DAILY 30 days ondansetron HCl 8 mg PO Q12H PRN 10 days pantoprazole 40 mg PO DAILY 90 days pen needle, diabetic (UltiCare Pen Needle) Use 1 pen needle once a day riboflavin (vitamin B2) 400 mg PO QAM sumatriptan succinate 25 mg PO Q2-4H PRN 30 days zolpidem 10 mg PO BEDTIME PRN 30 days HPI Comments Details: 58 YO F who is seen in consultation for T2DM at the request of PCP. Initially diagnosed with T2DM in 2013 . Current regimen Invokana 300 mg QD Metformin XR 750 mg BID Trulicity 1.5 mg Q wkly Unfortunately, patient did not bring glucometer or log book to follow-up visit Family history of T2DM in Paternal Grandmother had Type 2 DM and cousin Type 2 DM. Has eyes checked yearly, last eye exam 04/2023 , denies retinopathy. Denies neuropathy, last foot exam 4 yrs ago , sees podiatry. Denies nephropathy, Not on GREGORY/ARB. UAC nl as measured on . Has HLD, on statin. Denies CAD. Rare hypoglycemia Had diabetes education. [facility] Medical History PVD (peripheral vascular disease) Snoring Insomnia Ingrown toenail Mild recurrent major depression Right knee pain Skin mole Dyslipidemia Fear of needles Depression with anxiety Bipolar disorder Insomnia Autoimmune thyroiditis Diabetes mellitus Knee pain Surgical History H/O hysterectomy for benign disease Previous section Hx of cholecystectomy Hx of appendectomy History of total right knee replacement Family History Father Heart disease Mother Brain aneurysm COPD (chronic obstructive pulmonary disease) Social History Housing: House Alcohol intake: former Patient Tobacco Use Status: Former Tobacco user Tobacco use type: Cigarette e-Cigarette/Vaping Use: Never Used Second Hand Smoke Exposure: No service: No Current occupational status: unemployed Cognitive needs: No Hearing needs: No Vision needs: Yes (Glasses.) Physical Exam Vital Signs: Last Vital Signs Pulse 73 06/11/23 08:25 BP 102/70 06/11/23 08:25 BMI result Body Mass Index 29.3 Absence of Cushingoid features. Absence of acromegalic features. Neck exam reveals nl size thyroid about 15 gms. No thyroid nodules palpable. No carotid bruits present. Lungs CTA. Heart S1 S2, Reg R/R. No M/R/ G. Skin exam reveals absence of vitiligo or acanthosis nigricans. Abdominal exam reveals Soft NT/ND with NA BS. No organomegaly present. Neck Other: . Extrem Other: Visual exam of foot performed. No ulcerations or open lesions. No onchomycosis, no callouses.Pulses 2 + distally Sensation intact to monofilament exam. Vibratory sensation sensed is intact with 128 Hz tuning fork Results AMB Hemoglobin A1c AMB Hemoglobin A1c 7.0 % Last Edit by TEODORO Strong on 06/11/23 08:52 Results Reviewed Results Reviewed: Laboratory Last Values Glucose (Clinic) 178 mg/dL (60-115) H 06/11/23 08:34 Assessment & Plan Assessment & Plan (1) Diabetes mellitus: Code(s): E11.9 - Type 2 diabetes mellitus without complications Category: Medical Qualifiers: Diabetes mellitus complication status: with hyperglycemia Diabetes mellitus penitentiary insulin use: without penitentiary use Diabetes mellitus type: type 2 Qualified Code(s): E11.65 - Type 2 diabetes mellitus with hyperglycemia Plan: This is a 56-year-old white female with a history of type 2 diabetes being treated with metformin, Invokana and Trulicity with excellent glycemic control but hypoglycemia and no known microvascular or macrovascular complications. Plan is continue the current management. At this point, patient returned to the care of her primary care provider and returned back to endocrinology sure HbA1c deteriorate Orders: Orders AMB Hemoglobin A1c Today E11.65 - Type 2 diabetes mellitus with hyperglycemia, Z13.9 - Encounter for screening, unspecified Coding Level of Care Code Est Pt Level 4 (46214) Diagnoses Type 2 diabetes mellitus with hyperglycemia, without long-term current use of insulin E11.65 Diabetes mellitus complication status: with hyperglycemia Diabetes mellitus penitentiary insulin use: without penitentiary use Diabetes mellitus type: type 2
[2023-06-11 08:38] LABS: Glucose, Whole Blood 178 mg/dL (60-115)
== END 2023-06-11 08:49 | disposition home or self-care (01) ==
PROVIDERS: PCP Internal Medicine; Visit Provider Internal Medicine Endocrinology, Diabetes & Metabolism
DX: Z13.9 Encounter for screening, unspecified (principal); E11.65 Type 2 diabetes mellitus with hyperglycemia
CPT/HCPCS: 99214

== ENCOUNTER → 2023-06-11 08:16 | Outpatient (BNVA) | payer OTHER, SELFPAY | PROVIDERS: PCP Internal Medicine; Visit Provider Internal Medicine Endocrinology, Diabetes & Metabolism | DX: E11.65 Type 2 diabetes mellitus with hyperglycemia (principal); Z79.85 Long-term (current) use of injectable non-insulin antidiabetic drugs; Z79.84 Long term (current) use of oral hypoglycemic drugs; Z79.4 Long term (current) use of insulin | CPT/HCPCS: 82947; 83036; 99212 ==

== ENCOUNTER 2023-06-21 08:41 | Day surgery (SDC) | payer OTHER, SELFPAY ==
[2023-05-08 10:33] VITALS: BMI 29.3
--- NOTE | 2023-06-20 11:05 | HO.ANESPROP2 ---
Documented by User: Isi Muniz NP 06/20/23 11:06 HPI - Anesthesia Eval Consult details Narrative: 58yo F for Colonoscopy Anesthesia Pre-Procedure Meds Is the patient on any of the following meds?: GLP1/DPP4 and SGLT2 Inhib PMFSH Active Problems Active Problems: All Active Problems Loss of balance (Acute) Snoring (Acute) Insomnia (Acute) Screen for colon cancer (Acute) Retained suture (Acute) Neuropathy (Acute) Bipolar depression (Acute) Pre-op evaluation (Acute) Essential hypertension (Acute) Hyperlipidemia LDL goal <70 (Acute) Headache (Acute) Physical exam (Acute) Hypovitaminosis D (Acute) COVID-19 (Acute) Acute diarrhea (Acute) URI (upper respiratory infection) (Acute) Ingrown toenail (Acute) Right knee pain (Acute) Skin mole (Acute) Dyslipidemia (Acute) Fear of needles (Acute) Depression with anxiety (Acute) Right leg paresthesias (Acute) Insomnia (Acute) Autoimmune thyroiditis (Acute) Diabetes mellitus (Acute) Knee pain (Acute) Past Medical History Medical History PVD (peripheral vascular disease) Snoring Insomnia Ingrown toenail Mild recurrent major depression Right knee pain Skin mole Dyslipidemia Fear of needles Depression with anxiety Bipolar disorder Insomnia Autoimmune thyroiditis Diabetes mellitus Knee pain Family History Family History Father Heart disease Mother Brain aneurysm COPD (chronic obstructive pulmonary disease) Surgical History Surgical History H/O hysterectomy for benign disease Previous section Hx of cholecystectomy Hx of appendectomy History of total right knee replacement Social History Social History Housing: House Alcohol intake: former Patient Tobacco Use Status: Former Tobacco user Tobacco use type: Cigarette e-Cigarette/Vaping Use: Never Used Second Hand Smoke Exposure: No Advance Directives: No Advance Directives Information Provided: Yes service: No Current occupational status: unemployed Cognitive needs: No Hearing needs: No Vision needs: Yes (Glasses.) Meds Allergies Allergy/AdvReac Type Severity Reaction Status Date / Time codeine [CODEINE] Allergy Intermediate NAUSEA, Verified 06/21/23 09:38 nausea and vomiting Home Medications ?Medication ?Instructions ?Recorded ?Confirmed ?Last Taken ?Type blood-glucose meter (FreeStyle 05/04/22 06/21/23 Unknown History Lite Meter kit) lancets 33 gauge (TRUEplus Lancets) #100 ea 05/04/22 06/21/23 Unknown History Exam Height,Weight and Vital Signs: Height 5 ft Weight 68.039 kg Assessment and Plan Assessment Anesthesia Assessment: Chart Reviewed Documented by User: Marisol Fan MD 06/21/23 10:30 PMFSH Past Medical History Medical History PVD (peripheral vascular disease) Snoring Insomnia Ingrown toenail Mild recurrent major depression Right knee pain Skin mole Dyslipidemia Fear of needles Depression with anxiety Bipolar disorder Insomnia Autoimmune thyroiditis Diabetes mellitus Knee pain Family History Family History Father Heart disease Mother Brain aneurysm COPD (chronic obstructive pulmonary disease) Surgical History Surgical History H/O hysterectomy for benign disease Previous section Hx of cholecystectomy Hx of appendectomy History of total right knee replacement History of Problems with Anesthesia: No Social History Social History Housing: House Alcohol intake: former Patient Tobacco Use Status: Former Tobacco user Tobacco use type: Cigarette e-Cigarette/Vaping Use: Never Used Second Hand Smoke Exposure: No Advance Directives: No Advance Directives Information Provided: Yes service: No Current occupational status: unemployed Cognitive needs: No Hearing needs: No Vision needs: Yes (Glasses.) Meds Allergies Allergy/AdvReac Type Severity Reaction Status Date / Time codeine [CODEINE] Allergy Intermediate NAUSEA, Verified 06/21/23 09:38 nausea and vomiting Home Medications ?Medication ?Instructions ?Recorded ?Confirmed ?Last Taken ?Type blood-glucose meter (FreeStyle 05/04/22 06/21/23 Unknown History Lite Meter kit) lancets 33 gauge (TRUEplus Lancets) #100 ea 05/04/22 06/21/23 Unknown History Exam Airway Mallampati Class: II (edentulous) TM Dist: >3cm Neck ROM: Full Loose/Missing/Broken Teeth: Yes, Upper and Lower Heart: RRR Lungs: CTA Assessment and Plan Assessment Anesthesia Assessment: Anesthesia Plan Discussed Final Anesthetic Review History of Problems with Anesthesia: No NPO: Yes ASA Class: II Final Preanesthetic Review: Meds/Allgs Chart Reviewed, Consent Obtained/Reviewed and Anes Risks/Benef Reviewed Patient Risk: Low Procedure Risk: Low Anesthetic Plan Anesthetic Plan: MAC: Disposition: Standard PACU
[2023-06-21 09:42] VITALS: BP 112/71; PULSE 74; RESP 18; TEMP 36.3; O2SAT 98; BMI 29.1
[2023-06-21 09:56] LABS: Glucose, Whole Blood 145 mg/dL (60-115)
[2023-06-21] MEDS: Lactated Ringers 1,000 ML 100 ML IVCONT (10:16)
--- NOTE | 2023-06-21 10:32 | P.HPSUR_ITS ---
Pre-Procedural Eval Section A - 24 Hr Update-Section A only Date of Service: 06/21/23 Section B - Complete if H&P > 30 days Chief Complaint: Encounter for screening for malignant neoplasm of Details of Present Illness: see H&P no changes Relevant Family History (Specify if Yes): No Present Medications: see Short Stay Collaborative assessment Medical History: No relevant PMH History of Previous Operations: No relevant previous surgery Allergies: Allergies Allergy/AdvReac Type Severity Reaction Status Date / Time codeine [CODEINE] Allergy Intermediate NAUSEA, Verified 06/21/23 09:38 nausea and vomiting Review of Systems Sugical H&P ROS: Negative: Constitution, Cardiovascular, Respiratory, Neurological, Psychiatric, Hem-Onc, Allergic/Immunologic, Gastrointestinal, Genitourinary, Musculoskeletal, Integumentary, Endocrine and Eyes/Ears/Nose/T hroat Exam Surgical H&P Exam: Normal: HEENT, Normal: Heart, Normal: Lungs, Normal: Extremities, Normal: Abdomen, Normal: Skin and Normal: Neurological Plan Diagnosis/Plan: Unchanged I have reviewed the history and physical and performed a pertinent physical examination on my patient. No changes have occurred unless specified. Time Spent With Patient Time: Total time managing care of this patient today ____ minutes.
[2023-06-21 11:10] VITALS: BP 98/61; PULSE 82; RESP 18; TEMP 36.2; O2SAT 96
[2023-06-21 11:25] VITALS: BP 106/68; PULSE 71; RESP 16; TEMP 36.2; O2SAT 98
--- NOTE | 2023-06-21 11:29 | OP_ITS ---
DATE OF SERVICE: 06/21/2023 SURGEON: Devonte Leahy MD INDICATIONS: 1. Colon cancer screening. 2. Irritable bowel syndrome with diarrhea predominance. PREOPERATIVE DIAGNOSIS: POSTOPERATIVE DIAGNOSIS: PROCEDURE PERFORMED: Colonoscopy to the terminal ileum with biopsy. ESTIMATED BLOOD LOSS: COMPLICATIONS: ANESTHESIA: Monitored anesthesia care. ASSISTANTS: SPECIMENS: DESCRIPTION OF PROCEDURE: A history and physical was performed. The risks and benefits of the procedure were explained to the patient and informed consent was obtained. The patient was placed in the left lateral decubitus position. A digital rectal exam was performed and was found to be normal. The Olympus pediatric video colonoscope was introduced into the rectum and advanced to the cecum. The cecum was identified by transillumination, palpation, and identification of ileocecal valve. Examination was performed and the scope was removed. She tolerated the procedure well and was returned to recovery area in stable condition. FINDINGS: The terminal ileum was examined and appeared normal. The visualized colonic mucosa was within normal limits. There was no evidence of colitis. There was some liquid stool in the descending, sigmoid, and rectum, which limited the sensitivity examination for small polyps. This was washed and suctioned. Retroflexed examination showed some moderate-sized internal hemorrhoids and some hypertrophic anal papillae. No polyps were identified. IMPRESSION: Normal colonoscopy. RECOMMENDATIONS: 1. Follow up the biopsy results. 2. Repeat colonoscopy is recommended in 10 years for average-risk individuals. MD YUKI Meyers/JOHN / [id number]
== END 2023-06-21 11:50 | disposition home or self-care (01) ==
PROVIDERS: PCP Internal Medicine; Visit Provider Internal Medicine Gastroenterology
PROC: 0DJD8ZZ Inspection of Lower Intestinal Tract, Via Natural or Artificial Opening Endoscopic (ICD-10-PCS; CPT 45378; principal; 2023-06-21 11:50)
DX: Z12.11 Encounter for screening for malignant neoplasm of colon (principal); K58.0 Irritable bowel syndrome with diarrhea; K64.8 Other hemorrhoids; E11.9 Type 2 diabetes mellitus without complications; Z88.5 Allergy status to narcotic agent
CPT/HCPCS: 45380; 82947; 88305; J2704

== ENCOUNTER 2023-07-22 07:53 | Outpatient (AMB) | payer OTHER, SELFPAY ==
--- NOTE | 2023-07-22 07:54 | A.OFFVIS_ITS ---
Vital Signs 07/22/23 08:02 Height 5 ft 1 in Weight 151 lb 14.376 oz BMI 28.7 BP 100/74 Blood Pressure Location Rt brachial Position Sitting Pulse 70 Pulse Source Pulse Oximeter Intake Visit Reasons: DM/confirmed Intake Note: Patient present today to follow up on Type 2 Diabetes Mellitus. Last seen by Dr. Frye on 06/11/2023. Last Diabetic Eye exam: [facility] 04/18/2023 Last Podiatry Visit: July 15, 2023 Random Glucose: 122 mg/dl HgA1C: 7.0% 06/11/2023 Export Packer Required: No Accompanied by: Self / Same As Patient Allergies codeine [CODEINE] Allergy (Intermediate, Verified 07/22/23 08:02) NAUSEA, nausea and vomiting Medication List - Last Reconciled 07/22/23 by Mnedy uLu PA-C acetaminophen (Tylenol Extra Strength) 500 mg PO BID PRN 90 days alpha lipoic acid 600 mg PO DAILY atorvastatin 80 mg PO BEDTIME 90 days baclofen 10 mg PO TID PRN 30 days blood sugar diagnostic (FreeStyle Test strips) Use 4 test strip once a day blood-glucose meter (FreeStyle Lite Meter kit) As directed blood-glucose meter (FreeStyle Lite Meter kit) As directed canagliflozin (Invokana) 300 mg PO DAILY 90 days cholecalciferol (vitamin D3) 25 mcg PO DAILY 90 days dulaglutide (Trulicity) 1.5 mg (0.5 mL) subcut QWEEK gabapentin 600 mg PO TID 30 days lancets (FreeStyle Lancets) Use 1 lancet once a day lancets (TRUEplus Lancets) As directed levothyroxine 75 mcg PO DAILY 90 days lurasidone mg PO magnesium oxide 400 mg PO BEDTIME metformin ER 1,500 mg (2 x 750 mg) PO DAILY 30 days ondansetron HCl 8 mg PO Q12H PRN 10 days pantoprazole 40 mg PO DAILY 90 days pen needle, diabetic (UltiCare Pen Needle) Use 1 pen needle once a day riboflavin (vitamin B2) 400 mg PO QAM sumatriptan succinate 25 mg PO Q2-4H PRN 30 days zolpidem 10 mg PO BEDTIME PRN 30 days HPI HPI DM/confirmed: Details: Patient is a 58-year-old female with a significant past medical history of type 2 diabetes, peripheral neuropathy, hyperlipidemia, hypertension, hypothyroidism presenting today for a diabetic follow-up. Endo: DM- She is currently on metformin 1500 mg, Invokana 300 mg, Trulicity 1.5 mg weekly. Her last A1c was 7. She is not on an GREGORY-inhibitor. No known nephropathy. Cholesterol is controlled with atorvastatin 80 mg. Follows with Podiatry and Ophthalmology. She would like a cgm as she does not check her blood sugars daily. She states that she is terrified of needles and usually has to ask for help to check her blood sugars. She also has poor sensation on her finger tips due to years of diabetes and finger pricks. She states that its on and off with sensation so she just does not check. She has been diabetic since 2014. Hypothyroid-levothyroxine dosage is 75 mcg. Last TSH was WNL. CV: Blood pressure today in the office 100/74. Not on antihypertensives. [facility] Medical History (Updated 07/22/23 @ 08:22 by Mendy Luu PA-C) Type 2 diabetes mellitus Peripheral sensory neuropathy due to type 2 diabetes mellitus PVD (peripheral vascular disease) Snoring Insomnia Ingrown toenail Mild recurrent major depression Right knee pain Skin mole Dyslipidemia Fear of needles Depression with anxiety Bipolar disorder Insomnia Autoimmune thyroiditis Diabetes mellitus Knee pain Surgical History History of colonoscopy H/O hysterectomy for benign disease Previous section Hx of cholecystectomy Hx of appendectomy History of total right knee replacement Family History Father Heart disease Mother Brain aneurysm COPD (chronic obstructive pulmonary disease) Social History Housing: House Alcohol intake: former Patient Tobacco Use Status: Former Tobacco user Tobacco use type: Cigarette e-Cigarette/Vaping Use: Never Used Second Hand Smoke Exposure: No service: No Current occupational status: unemployed Cognitive needs: No Hearing needs: No Vision needs: Yes (Glasses.) Physical Exam Vital Signs: BMI result Body Mass Index 28.7 Const Orientation/consciousness: patient oriented x3 HEENT Ears: hearing grossly normal bilaterally Neck Thyroid: Thyroid normal Lymphatic: no lymphadenopathy noted Resp Auscultation: clear to auscultation bilaterally Cardio Rate: regular rate Rhythm: regular rhythm Heart sounds: S1 normal heart sound present and S2 normal heart sound present Skin General skin exam: no rashes or lesions noted Neuro General: patient oriented x3, gait normal and no focal motor deficits Extrem Other: dp and radial pulses 2+ bilaterally. monofilament sensation intact. vibratory sensation intact. skin intact. Results Reviewed Results Reviewed: Laboratory Tests 11/14/22 11/14/22 06/11/23 11:17 11:23 08:38 Sodium 143 Potassium 3.6 Chloride 109 H Carbon Dioxide 24 Creatinine 0.66 Estimated GFR > 60 POC Glucose Hgb A1c (Clinic) 7.0 H AST 12 ALT 16 Alkaline Phosphatase 54 Total Protein 6.6 Triglycerides 99 Cholesterol 129 LDL Cholesterol, Calc 73 HDL Cholesterol 37 L TSH 2.08 Urine Creatinine 102.89 Urine Microalbumin 7.0 Microalb/Creat Ratio 6.8 06/21/23 09:52 Sodium Potassium Chloride Carbon Dioxide Creatinine Estimated GFR POC Glucose 145 H Hgb A1c (Clinic) AST ALT Alkaline Phosphatase Total Protein Triglycerides Cholesterol LDL Cholesterol, Calc HDL Cholesterol TSH Urine Creatinine Urine Microalbumin Microalb/Creat Ratio Assessment & Plan Assessment & Plan (1) Type 2 diabetes mellitus: Code(s): E11.9 - Type 2 diabetes mellitus without complications Category: Medical Qualifiers: Diabetes mellitus termite control service representative insulin use: without fdc use Diabetes mellitus complication status: with neurologic complications Diabetes mellitus complication detail: with unspecified neuropathy Qualified Code(s): E11.40 - Type 2 diabetes mellitus with diabetic neuropathy, unspecified Plan: continue curerent treatment plan. will try to get Fitly debora 3 approved. if approved, pt will follow up in office in a couple weeks with her cgm for dm education and help setting up her phone as a reader. pt will otherwise follow up in 3 months, sooner if needed. pt will do labs prior to exam. pt understands and agrees with the plan. (2) Peripheral sensory neuropathy due to type 2 diabetes mellitus: Code(s): E11.42 - Type 2 diabetes mellitus with diabetic polyneuropathy Category: Medical Plan: as above (3) Fear of needles: Code(s): F40.298 - Other specified phobia Category: Medical Plan: see above Plan pt understands and agrees with the plan. Orders: Orders Hemoglobin A1c Today E11.42 - Type 2 diabetes mellitus with diabetic polyneuropathy, E11.9 - Type 2 diabetes mellitus without complications Medications: New blood-glucose sensor (FreeStyle Debora 3 Sensor device) Apply every 14 days As directed 1 ea 11RF E11.42 - Type 2 diabetes mellitus with diabetic polyneuropathy, E11.9 - Type 2 diabetes mellitus without complications, F40.298 - Other specified phobia Coding Level of Care Code Est Pt Level 4 (44887) Complex EM visit Add On G2211 Diagnoses Type 2 diabetes mellitus with diabetic neuropathy, without long-term current use of insulin E11.40 Diabetes mellitus termite control service representative insulin use: without fdc use Diabetes mellitus complication status: with neurologic complications Diabetes mellitus complication detail: with unspecified neuropathy Peripheral sensory neuropathy due to type 2 diabetes mellitus E11.42 Fear of needles F40.298
[2023-07-22 08:02] VITALS: BP 100/74; PULSE 70; BMI 28.7
[2023-07-22 08:14] LABS: Glucose, Whole Blood 122 mg/dL (60-115)
== END 2023-07-22 08:32 | disposition home or self-care (01) ==
PROVIDERS: PCP Internal Medicine; Visit Provider Physician Assistant
DX: E11.40 Type 2 diabetes mellitus with diabetic neuropathy, unspecified (principal); E11.42 Type 2 diabetes mellitus with diabetic polyneuropathy; F40.298 Other specified phobia
CPT/HCPCS: 99214; G2211

== ENCOUNTER → 2023-07-22 07:53 | Outpatient (BNVA) | payer OTHER, SELFPAY | PROVIDERS: PCP Internal Medicine; Visit Provider Physician Assistant | DX: E11.42 Type 2 diabetes mellitus with diabetic polyneuropathy (principal); E11.40 Type 2 diabetes mellitus with diabetic neuropathy, unspecified; Z79.85 Long-term (current) use of injectable non-insulin antidiabetic drugs; Z79.84 Long term (current) use of oral hypoglycemic drugs; F40.298 Other specified phobia | CPT/HCPCS: 82947; 99212 ==

== ENCOUNTER 2023-08-01 09:45 | Outpatient (AMB) | payer OTHER, SELFPAY ==
--- NOTE | 2023-08-01 09:49 | MHC.PC.OV ---
Vital Signs 08/01/23 09:51 Height 5 ft 1 in Weight 154 lb BMI 29.1 BP 110/78 Blood Pressure Location Lt brachial Position Sitting Intake Visit Reasons: dm Intake Note: Patient here for a follow up DM Brick Offbearer Required: No Accompanied by: Self / Same As Patient Allergies codeine [CODEINE] Allergy (Intermediate, Verified 08/01/23 10:03) NAUSEA, nausea and vomiting Medication List - Last Reconciled 08/01/23 by Viky Campuzano MD acetaminophen (Tylenol Extra Strength) 500 mg PO BID PRN 90 days alpha lipoic acid 600 mg PO DAILY atorvastatin 80 mg PO BEDTIME 90 days baclofen 10 mg PO TID PRN 30 days blood sugar diagnostic (FreeStyle Test strips) Use 4 test strip once a day blood-glucose meter (FreeStyle Lite Meter kit) As directed blood-glucose meter (FreeStyle Lite Meter kit) As directed blood-glucose sensor (FreeStyle Debora 3 Sensor device) Apply every 14 days As directed canagliflozin (Invokana) 300 mg PO DAILY 90 days cholecalciferol (vitamin D3) 25 mcg PO DAILY 90 days dulaglutide (Trulicity) 1.5 mg (0.5 mL) subcut QWEEK gabapentin 600 mg PO TID 30 days lancets (FreeStyle Lancets) Use 1 lancet once a day lancets (TRUEplus Lancets) As directed levothyroxine 75 mcg PO DAILY 90 days lurasidone mg PO magnesium oxide 400 mg PO BEDTIME metformin ER 1,500 mg (2 x 750 mg) PO DAILY 30 days ondansetron HCl 8 mg PO Q12H PRN 10 days pantoprazole 40 mg PO DAILY 90 days pen needle, diabetic (UltiCare Pen Needle) Use 1 pen needle once a day quetiapine mg PO riboflavin (vitamin B2) 400 mg PO QAM sumatriptan succinate 25 mg PO Q2-4H PRN 30 days zolpidem 10 mg PO BEDTIME PRN 30 days Tobacco use date assessed: 03/27/23 Dental Screening Dental Screen Date: 03/27/23 HPI HPI Comments History of Present Illness Details This is a 58-year-old female with diabetes mellitus type 2 complicated with neuropathy, autoimmune thyroiditis, hypertension, hyperlipidemia and bipolar depression that comes today for follow-up on her conditions. Last A1c was still elevated and she follows with endocrinology. I order TSH and lipid panel and her LDL goal should be less than 70. Blood pressure stable. Has bipolar depression follow by Psychiatry and counseling is still pending. [facility] Medical History Type 2 diabetes mellitus Peripheral sensory neuropathy due to type 2 diabetes mellitus PVD (peripheral vascular disease) Snoring Insomnia Ingrown toenail Mild recurrent major depression Right knee pain Skin mole Dyslipidemia Fear of needles Depression with anxiety Bipolar disorder Insomnia Autoimmune thyroiditis Diabetes mellitus Knee pain Surgical History History of colonoscopy H/O hysterectomy for benign disease Previous section Hx of cholecystectomy Hx of appendectomy History of total right knee replacement Family History Father Heart disease Mother Brain aneurysm COPD (chronic obstructive pulmonary disease) Social History Housing: House Alcohol intake: former Patient Tobacco Use Status: Former Tobacco user Tobacco use type: Cigarette e-Cigarette/Vaping Use: Never Used Second Hand Smoke Exposure: No service: No Current occupational status: unemployed Cognitive needs: No Hearing needs: No Vision needs: Yes (Glasses.) Questionnaire Thrive Questionnaire Date Thrive assessed: 03/27/23 АННА-7 AMB Questionnaire АННА-7 Date АННА - 7 assessed: 03/27/23 Source: Developed by Drs. Clint Adair, Sameera Galloway, Paul Polanco and colleagues, with an educational sandoval from [employer]. Review of Systems Const All systems reviewed & are unremarkable except as noted in HPI and below Card Denies chest pain at rest, Denies chest pain with activity, Denies edema, Denies irregular heart rhythm, Denies claudication, Denies dyspnea, Denies dyspnea on exertion, Denies orthopnea, Denies paroxysmal nocturnal dyspnea and Denies slow heart rate Resp Denies cough, Denies dyspnea and Denies dyspnea on exertion Physical exam (Primary Care) Vital Signs: Last Vital Signs BP 110/78 08/01/23 09:51 BMI result Body Mass Index 29.1 Tobacco/Smoking Status: Tobacco use Status Tobacco use date assessed 03/27/23 08/01/23 09:54 Patient Tobacco Use Status Former Tobacco user 08/01/23 09:54 Tobacco use type Cigarette 08/01/23 09:54 e-Cigarette/Vaping Use Never Used 08/01/23 09:54 Thrive Assessment: Date of Thrive Assessment Date Thrive assessed 03/27/23 08/01/23 09:54 Resp Effort & Inspection: normal respiratory effort Auscultation: clear to auscultation bilaterally Cardio Jugular venous distension: no JVD Rate: regular rate Rhythm: regular rhythm Heart sounds: S1 normal heart sound present and S2 normal heart sound present Extrem General: Yes full ROM Assessment and Plan Assessment & Plan (1) Type 2 diabetes mellitus: Code(s): E11.9 - Type 2 diabetes mellitus without complications Qualifiers: Diabetes mellitus director long term care insulin use: without director long term care use Diabetes mellitus complication status: with neurologic complications Diabetes mellitus complication detail: with unspecified neuropathy Qualified Code(s): E11.40 - Type 2 diabetes mellitus with diabetic neuropathy, unspecified Plan: Continue Invokana, Trulicity and metformin. A1c goal is equal or less than 7%. Last diabetic eye exam was 04/2023. Needs yearly diabetic eye exam. (2) Autoimmune thyroiditis: Code(s): E06.3 - Autoimmune thyroiditis Plan: Continue levothyroxine. Monitor TSH. (3) Bipolar depression: Code(s): F31.9 - Bipolar disorder, unspecified Plan: Continue Latuda. Follow-up with psychiatry. (4) Hyperlipidemia LDL goal <70: Code(s): E78.5 - Hyperlipidemia, unspecified Plan: Continue statins. LDL goal is less than 70. (5) Peripheral sensory neuropathy due to type 2 diabetes mellitus: Code(s): E11.42 - Type 2 diabetes mellitus with diabetic polyneuropathy Plan: Continue gabapentin. Orders: Orders Lipid Panel Today E78.5 - Hyperlipidemia, unspecified Microalbumin, Random (w Creat) Today E11.9 - Type 2 diabetes mellitus without complications Vitamin D 25-OH Total Today E55.9 - Vitamin D deficiency, unspecified Thyroid Stimulating Hormone Today E06.3 - Autoimmune thyroiditis Comprehensive [place]tt. Panel Fast Today E11.40 - Type 2 diabetes mellitus with diabetic neuropathy, unspecified Coding Level of Care Code Est Pt Level 4 (34771) Complex EM visit Add On G2211 Diagnoses Type 2 diabetes mellitus with diabetic neuropathy, without long-term current use of insulin E11.40 Diabetes mellitus director long term care insulin use: without director long term care use Diabetes mellitus complication status: with neurologic complications Diabetes mellitus complication detail: with unspecified neuropathy Autoimmune thyroiditis E06.3 Bipolar depression F31.9 Hyperlipidemia LDL goal <70 E78.5 Peripheral sensory neuropathy due to type 2 diabetes mellitus E11.42 Time Spent (min) 23
[2023-08-01 09:51] VITALS: BP 110/78; BMI 29.1
== END 2023-08-01 10:18 | disposition home or self-care (01) ==
PROVIDERS: PCP Internal Medicine; Visit Provider Internal Medicine
DX: E11.40 Type 2 diabetes mellitus with diabetic neuropathy, unspecified (principal); F31.9 Bipolar disorder, unspecified; E11.42 Type 2 diabetes mellitus with diabetic polyneuropathy; E06.3 Autoimmune thyroiditis; E78.5 Hyperlipidemia, unspecified
CPT/HCPCS: 99214; G2211

== ENCOUNTER 2023-08-02 08:07 | Outpatient (REF) | payer OTHER, SELFPAY ==
[2023-08-02 09:11] LABS: Estimated Average Glucose 148 mg/dL; Hemoglobin A1c % 6.8 % (<6.0)
[2023-08-02 10:04] LABS: Alanine Aminotransferase 25 U/L (0-31); Albumin Level 4.2 g/dL (3.5-5.0); Alkaline Phosphatase 58 U/L (39-117); Anion Gap 13 (12-20); Aspartate Amino Transferase 18 U/L (5-31); Bilirubin Total 0.6 mg/dL (0.0-1.0); Blood Urea Nitrogen 13 mg/dL (9-16); Calcium 9.7 mg/dL (8.4-10.2); Carbon Dioxide 25 mmol/L (22-29); Chloride 107 mmol/L (96-108); Cholesterol 125 mg/dL (<200); Estimated Glomerular Filt Rate > 60; Glucose Fasting 139 mg/dL (60-99); HDL Cholesterol 32 mg/dL (>40); LDL Cholesterol Calculated 63 mg/dL (<100); Potassium 4.1 mmol/L (3.3-5.1); Sodium 141 mmol/L (135-145); Triglycerides 150 mg/dL (<150)
[2023-08-02 10:06] LABS: Thyroid Stimulating Hormone 3.35 uIU/mL (0.32-4.0); Vitamin D 25-OH Total 30.1 ng/mL (>30)
[2023-08-02 10:13] LABS: Creatinine Urine 97.75 mg/dL; Microalbum/Creatinine Ratio Ur 6.1 ug/mg cr (<30)
== END 2023-08-02 08:08 | disposition home or self-care (01) ==
LOC: HO.LAB 08:07
PROVIDERS: Physician Assistant; PCP Internal Medicine; Visit Provider Internal Medicine
DX: Z00.00 Encounter for general adult medical examination without abnormal findings (principal); E55.9 Vitamin D deficiency, unspecified; E06.3 Autoimmune thyroiditis; E78.5 Hyperlipidemia, unspecified; E11.40 Type 2 diabetes mellitus with diabetic neuropathy, unspecified; E11.42 Type 2 diabetes mellitus with diabetic polyneuropathy
CPT/HCPCS: 36415; 80053; 80061; 82043; 82306; 82570; 83036; 84443

== ENCOUNTER 2023-12-13 10:47 | Outpatient (REF) | payer OTHER, SELFPAY ==
--- NOTE | ~2023-12-13 | MM_ITS ---
EXAMINATION: MM SCREENING DIGITAL BREAST TOMOSYNTHESIS, BILATERAL CLINICAL INFORMATION: Screening. Asymptomatic. COMPARISON: Mammography: Comparison is made with available priors TECHNIQUE: Digital breast mammography with tomosynthesis is performed in both the craniocaudal and mediolateral oblique views along with computer-aided detection (CAD). FINDINGS: There are scattered areas of fibroglandular density (ACR BI-RADS breast composition Category b). There are no significant masses, abnormal calcifications, or other abnormalities. MM/MM tomosynthesis screening BI IMPRESSION: No mammographic evidence of malignancy. ASSESSMENT: BI-RADS BI-RADS 1 - Negative RECOMMENDATION: Routine annual mammography screening. 1 year F/U This examination should not preclude the clinical evaluation of a suspicious palpable abnormality. This patient's information was entered into a reminder system with a target due date for their next mammogram. Electronically signed by: Marita Lang DO 12/23/2023 07:40 PM [facility]
== END 2023-12-13 10:48 | disposition home or self-care (01) ==
LOC: HO.MAMMO 10:47
PROVIDERS: PCP Internal Medicine; Visit Provider Internal Medicine
DX: Z12.31 Encounter for screening mammogram for malignant neoplasm of breast (principal)
CPT/HCPCS: 77063; 77067

== ENCOUNTER → 2023-12-13 11:00 | Outpatient (BNV) | payer OTHER, SELFPAY | PROVIDERS: PCP Internal Medicine; Visit Provider Internal Medicine | DX: Z12.31 Encounter for screening mammogram for malignant neoplasm of breast (principal) | CPT/HCPCS: 77063; 77067 ==

== ENCOUNTER 2024-04-23 09:40 | Outpatient (REF) | payer OTHER, SELFPAY ==
[2024-04-23 11:42] LABS: Creatinine Urine 100.15 mg/dL; Microalbum/Creatinine Ratio Ur 6.9 ug/mg cr (<30)
[2024-04-23 11:49] LABS: Alanine Aminotransferase 19 U/L (0-31); Albumin Level 4.1 g/dL (3.5-5.0); Alkaline Phosphatase 48 U/L (39-117); Anion Gap 12 (12-20); Aspartate Amino Transferase 13 U/L (5-31); Bilirubin Total 0.8 mg/dL (0.0-1.0); Blood Urea Nitrogen 12 mg/dL (9-16); Calcium 9.5 mg/dL (8.4-10.2); Carbon Dioxide 27 mmol/L (22-29); Chloride 107 mmol/L (96-108); Cholesterol 136 mg/dL (<200); Estimated Glomerular Filt Rate > 60; Glucose Fasting 110 mg/dL (60-99); HDL Cholesterol 37 mg/dL (>40); LDL Cholesterol Calculated 75 mg/dL (<100); Potassium 4.2 mmol/L (3.3-5.1); Sodium 142 mmol/L (135-145); Total Protein 6.8 g/dL (6.5-8.0); Triglycerides 120 mg/dL (<150)
[2024-04-23 12:04] LABS: Thyroid Stimulating Hormone 2.24 uIU/mL (0.32-4.0); Vitamin D 25-OH Total 31.8 ng/mL (>30)
[2024-04-23 12:16] LABS: Folate 9.9 ng/mL (> or = 4.0); Vitamin B12 192 pg/mL (200-900)
--- OUTSIDE RECORDS SUMMARY | 2024-04-23 13:19 | XMS_ITS | Clinical Summary ---
Author Organization [facility] Address [address] [place] [address] Care Team Providers Care Mill Oiler Name Role Phone Viky Villegas MD Primary [...] 0 08/16/2020 Active ergocalciferol (VITAMIN D2) capsule 29400 units Take 1 capsule by mouth once [...] age to complete this topic Care Teams Mill Oiler Relationship Specialty Start Date End Date Viky Villegas MD [address] [place] [address] , [address] [facility] D/B/A: [facility] HALEY Loja [id number] PCP - General Internal Medicine 09/14/20
== END 2024-04-23 09:41 | disposition home or self-care (01) ==
LOC: HO.LAB 09:40
PROVIDERS: PCP Internal Medicine; Visit Provider Internal Medicine
DX: Z00.01 Encounter for general adult medical examination with abnormal findings (principal); F31.9 Bipolar disorder, unspecified; E11.42 Type 2 diabetes mellitus with diabetic polyneuropathy; H66.91 Otitis media, unspecified, right ear; E53.8 Deficiency of other specified B group vitamins; E78.5 Hyperlipidemia, unspecified; E06.3 Autoimmune thyroiditis; E55.9 Vitamin D deficiency, unspecified; R80.9 Proteinuria, unspecified
CPT/HCPCS: 36415; 80053; 80061; 82043; 82306; 82570; 82607; 82746; 83036; 84443; 96127; 99212; 99396

== ENCOUNTER 2024-04-23 09:40 | Outpatient (AMB) | payer OTHER, SELFPAY ==
--- NOTE | 2024-04-23 09:50 | A.OFFPC_ITS ---
Vital Signs 04/23/24 09:56 Height 5 ft 1 in Weight 144 lb BMI 27.2 BP 110/80 Blood Pressure Location Lt brachial Position Sitting Intake Visit Reasons: AnnualPE Intake Note: Patient here for a physical exam, c/o right ear pain Carding Doubler Required: No Accompanied by: Self / Same As Patient Allergies codeine [CODEINE] Allergy (Intermediate, Verified 04/23/24 10:11) NAUSEA, nausea and vomiting Medication List - Last Reconciled 04/23/24 by Viky Campuzano MD acetaminophen (Tylenol Extra Strength) 500 mg PO BID PRN 90 days alpha lipoic acid 600 mg PO DAILY atorvastatin 80 mg PO BEDTIME 90 days baclofen 10 mg PO TID PRN 30 days blood sugar diagnostic (FreeStyle Test strips) Use 4 test strip once a day blood-glucose meter (FreeStyle Lite Meter kit) As directed blood-glucose meter (FreeStyle Lite Meter kit) As directed blood-glucose sensor (FreeStyle Debora 3 Sensor device) Apply every 14 days As directed canagliflozin (Invokana) 300 mg PO DAILY 90 days cholecalciferol (vitamin D3) 25 mcg PO DAILY 90 days dulaglutide (Trulicity) 1.5 mg (0.5 mL) subcut QWEEK gabapentin 600 mg PO TID 30 days lancets (FreeStyle Lancets) Use 1 lancet once a day lancets (TRUEplus Lancets) As directed levothyroxine 75 mcg PO DAILY 90 days lidocaine 5% 1 patch topical DAILY PRN 30 days lurasidone mg PO magnesium oxide 400 mg PO BEDTIME meclizine 25 mg PO DAILY PRN 7 days metformin ER 1,500 mg (2 x 750 mg) PO DAILY 30 days ondansetron HCl 8 mg PO Q12H PRN 10 days pantoprazole 40 mg PO DAILY 90 days pen needle, diabetic (UltiCare Pen Needle) Use 1 pen needle once a day quetiapine mg PO riboflavin (vitamin B2) 400 mg PO QAM sumatriptan succinate 25 mg PO Q2-4H PRN 30 days zolpidem 10 mg PO BEDTIME PRN 30 days Tobacco use date assessed: 04/23/24 Dental Screening Dental Screen Date: 04/23/24 Did you have a dental visit in the last 12 months?: Yes Did you have a dental problem in the last 6 months where you did not have access to dental care?: No Was dental information given to patient?: Patient has dentist HPI HPI Comments History of Present Illness Details The patient is a 58-year-old female presenting for her physical exam. She has acute ear symptoms, including right-sided earache and dizziness, persisting for about a month. These symptoms manifest significantly during positional changes, particularly when lying down or standing quickly, requiring her to adjust slowly over 10 to 15 minutes. Meclizine was tried on one occasion with some relief during a severe dizzy spell. She has a notable history of chronic conditions, including management of Type 2 Diabetes Mellitus with an A1c of 6.4% and Hypercholesterolemia treated with atorvastatin. Her psychiatric and overall well-being is managed with medications for Depression and Bipolar Disorder. Past surgical history includes hysterectom y and procedures such as cholecystectomy, appendectomy, and knee replacement. She is allergic to codeine. Her maternal family history includes significant cardiac and respiratory diseases. - A1c level recorded at 6.4% - Bone densitometry scheduled for the en d of the year - Mammogram completed - Colonoscopy normal last year, repeat s cheduled for age 67 - Vaccination for Tdap due after er 2022 - Current medication regimen for managin g chronic conditions [facility] Medical History (Updated 04/23/24 @ 12:11 by Viky Campuzano MD) Type 2 diabetes mellitus Peripheral sensory neuropathy due to type 2 diabetes mellitus PVD (peripheral vascular disease) Snoring Insomnia Ingrown toenail Mild recurrent major depression Right knee pain Skin mole Dyslipidemia Fear of needles Depression with anxiety Bipolar disorder Insomnia Autoimmune thyroiditis Diabetes mellitus Knee pain Surgical History History of colonoscopy H/O hysterectomy for benign disease Previous section Hx of cholecystectomy Hx of appendectomy History of total right knee replacement Family History Father Heart disease Mother Brain aneurysm COPD (chronic obstructive pulmonary disease) Social History Housing: House Alcohol intake: former Patient Tobacco Use Status: Former Tobacco user Tobacco use type: Cigarette e-Cigarette/Vaping Use: Never Used Second Hand Smoke Exposure: No service: No Current occupational status: unemployed Cognitive needs: No Hearing needs: No Vision needs: Yes (Glasses.) Questionnaire PHQ-9 Over the last 2 weeks, how often have you been bothered by any of the following problems? 1. Little interest or pleasure in doing things: not at all 2. Feeling down, depressed, or hopeless: not at all 3. Trouble falling or staying asleep, or sleeping too much: not at all 4. Feeling tired or having little energy: not at all 5. Poor appetite or overeating: not at all 6. Feeling bad about yourself - or that you are a failure or have let yourself or your family down: not at all 7. Trouble concentrating on things, such as reading the newspaper or watching television: not at all 8. Moving or speaking so slowly that other people could have noticed. Or the opposite - being so fidgety or restless that you have been moving around a lot more than usual: not at all 9. Thoughts that you would be better off or of hurting yourself in some way: not at all Total score: 0 Depression Screening Interpretation: Negative Depression Screening Done: Yes 51297 - PHQ-9 Billing: Yes Source: Developed by Drs. Clint Adair, Sameera Galloway, Paul Polanco and colleagues, with an educational sandoval from [employer]. Thrive Questionnaire Date Thrive assessed: 04/23/24 I am a: Patient What is your living situation today?: I have a steady place to live Within the past 12 months, did the food you bought not last and you didn't have the money to get more?: Sometimes True Within the past 12 months, did you worry whether your food would run out before you got money to buy more?: Sometimes True Do you have trouble paying for medicines?: No Do you have trouble getting transportation to medical appointments?: No Do you have trouble paying your heating and electricity bill?: Yes Do you have trouble taking care of your child, family member or friend?: No Do you have trouble with day-to-day activities such as bathing, preparing meals, shopping, managing finances, etc.?: No Are you currently unemployed and looking for a job?: No Are you interested in more education?: No Please select the resources that you would like help with: None Currently or been in a relationship where the following occur: No concerns reported THRIVE Score: 3 AUDIT C Alcohol Use Questionnaire (AUDIT-C) 1. How often do you have a drink containing alcohol?: Never Total Score: 0 АННА-7 AMB Questionnaire АННА-7 Date АННА - 7 assessed: 04/23/24 Feeling nervous, anxious, or on edge: 0 = Not at all Not being able to stop or control worryin = Not at all Worrying too much about different things: 0 = Not at all Trouble relaxin = Not at all Being so restless that it is hard to sit still: 0 = Not at all Becoming easily annoyed or irritable: 0 = Not at all Feeling afraid as if something awful might happen: 0 = Not at all Total АННА-7 score (0-4 normal; 5-9 mild; 10-14 moderate; 15-21 severe): 0 Source: Developed by Drs. Clint Adair, Sameera Galloway, Paul Polanco and colleagues, with an educational sandoval from [employer]. АННА-7 Assessment Billing АННА-7 Assessment Tool: АННА-7 Assessment 95738 Review of Systems Const All systems reviewed & are unremarkable except as noted in HPI and below Card Denies chest pain at rest, Denies chest pain with activity, Denies edema, Denies irregular heart rhythm, Denies claudication, Denies dyspnea, Denies dyspnea on exertion, Denies orthopnea, Denies paroxysmal nocturnal dyspnea and Denies slow heart rate Resp Denies cough, Denies dyspnea and Denies dyspnea on exertion GI Denies abdominal pain, Denies change in bowel habits, Denies excessive flatus, Denies nausea and Denies vomiting Physical exam (Primary Care) Vital Signs: Last Vital Signs BP 110/80 04/23/24 09:56 BMI result Body Mass Index 27.2 Tobacco/Smoking Status: Tobacco use Status Tobacco use date assessed 04/23/24 04/23/24 10:02 Patient Tobacco Use Status Former Tobacco user 04/23/24 09:51 Tobacco use type Cigarette 04/23/24 09:51 e-Cigarette/Vaping Use Never Used 04/23/24 09:51 PHQ-9: PHQ-9 Score PHQ-9: Total score 0 04/23/24 10:23 Depression Screening Interpretation: Negative Thrive Assessment: Date of Thrive Assessment Date Thrive assessed 04/23/24 04/23/24 09:51 Currently or been in a relationship where the following occur: No concerns reported HENMT Head: Yes normal to inspection, Yes normocephalic and Yes atraumatic Ears: external ears normal Eyes General: appearance normal, both eyes and all related structures Eyelids: Yes eyelids normal Conjunctivae: conjunctivae normal Neck Neck: Yes normal visual inspection and Yes supple Resp Effort & Inspection: normal respiratory effort Auscultation: clear to auscultation bilaterally Cardio Jugular venous distension: no JVD Rate: regular rate Rhythm: regular rhythm Heart sounds: S1 normal heart sound present and S2 normal heart sound present GI Inspection: Yes normal to inspection Palpation (GI): Soft to palpation and nontender Auscultation: normal bowel sounds Skin General skin exam: no rashes or lesions noted Neuro General: no focal motor deficits Extrem General: Yes full ROM Psych Appearance: grossly normal Results AMB Hemoglobin A1c AMB Hemoglobin A1c 6.4 % Last Edit by TEODORO Farias on 04/23/24 10:1 4 Results Reviewed Results Reviewed: Laboratory Last Values Hgb A1c (Clinic) 6.4 % (4.0-6.0) H 04/23/24 09:49 Coding Level of Care Code Est Pt Level 3 (01121) Est Pt Prev Care 40-64y(95670) Diagnoses Physical exam Z00.00 Bipolar depression F31.9 Peripheral sensory neuropathy due to type 2 diabetes mellitus E11.42 Type 2 diabetes mellitus with diabetic neuropathy, without long-term current use of insulin E11.40 Diabetes mellitus residential insulin use: without termite control service representative use Diabetes mellitus complication status: with neurologic complications Diabetes mellitus complication detail: with unspecified neuropathy Right otitis media H66.91 Additional Codes АННА-7 Assessment Billing - АННА-7 Assessment Tool: АННА-7 Assessment 71704 ([id number]) PHQ-9 - 00207 - PHQ-9 Billing: Yes ([id number]) Time Spent (min) 34 Assessment & Plan Assessment & Plan (1) Physical exam: Code(s): Z00.00 - Encounter for general adult medical examination without abnormal findings Category: Medical (2) Bipolar depression: Code(s): F31.9 - Bipolar disorder, unspecified Category: Medical (3) Peripheral sensory neuropathy due to type 2 diabetes mellitus: Code(s): E11.42 - Type 2 diabetes mellitus with diabetic polyneuropathy Category: Medical (4) Type 2 diabetes mellitus: Code(s): E11.9 - Type 2 diabetes mellitus without complications Category: Medical Qualifiers: Diabetes mellitus termite control service representative insulin use: without termite control service representative use Diabetes mellitus complication status: with neurologic complications Diabetes mellitus complication detail: with unspecified neuropathy Qualified Code(s): E11.40 - Type 2 diabetes mellitus with diabetic neuropathy, unspecified (5) Right otitis media: Code(s): H66.91 - Otitis media, unspecified, right ear Category: Medical Plan The primary focus for the patient's presenting symptoms, the right earache, includes the administration of antibiotic ear drops to treat suspected acute otitis media, taking into account the ongoing symptomology and considering further interventions if necessary. Management of her chronic conditions remains with tight control of her diabetes, regularly monitoring, and adjusting her medication as required, ensuring optimized lipid control with atorvastatin, and closely monitoring and re-evaluating her psychiatric medications. With upcoming bone densitometry and vaccinations on schedule, her health maintenance includes active pain management and chronic illness monitoring, factoring in her previously noted surgical and allergy history. Patient was informed and verbally consented to the use of an ambient scribe for clinic note documentation during this visit. We discussed the possibility of an ear infection concerning her right-sided earache and dizziness. Antibiotic ear drops were prescribed to manage this symptom complex with emphasis on monitoring the progression and effectiveness. Treatment for her chronic conditions remains continual and was reviewed for compliance, involving medications such as atorvastatin and psychiatric interventions including lorazodone. There was a discussion about future bone densitometry at year-end and the need for another colonoscopy at age 67, as per standard screening guidelines. Vaccination for Tdap is due post-October 2022. Potential therapy for dizziness may be considered based on symptomatic improvement after treating the ear condition. Orders: Orders AMB Hemoglobin A1c Today E11.40 - Type 2 diabetes mellitus with diabetic neuropathy, unspecified Vitamin B12 and Folate Today E53.8 - Deficiency of other specified B group vitamins Comprehensive [place]. Panel Fast Today E11.40 - Type 2 diabetes mellitus with diabetic neuropathy, unspecified Thyroid Stimulating Hormone Today E06.3 - Autoimmune thyroiditis Lipid Panel Today E78.5 - Hyperlipidemia, unspecified Microalbumin, Random (w Creat) Today R80.9 - Proteinuria, unspecified Vitamin D 25-OH Total Today E55.9 - Vitamin D deficiency, unspecified Medications: New ciprofloxacin-dexamethasone 0.3-0.1 % 4 drps otic (ears) BID 7.5 mL 0RF 7 days H66.91 - Otitis media, unspecified, right ear Patient Instructions: - Use prescribed antibiotic ear drops as directed - Monitor for changes or improvement in ear symptoms and dizziness - Maintain current medication regimen for chronic conditions - Schedule bone densitometry at the end of the year - Follow up for Tdap vaccination after October - Continue regular diabetes monitoring and adherence to prescribed medications - Report any worsening symptoms or new concerns immediately
[2024-04-23 09:56] VITALS: BP 110/80; BMI 27.2
--- OUTSIDE RECORDS SUMMARY | 2024-04-23 11:35 | XMS_ITS ---
Author Organization [facility] Address [address] [place] [address] Care Team Providers Care Fitter/Welder Name Role Phone Viky Villegas Primary Care Provider Devonte Glass Jr Unavailable REASON FOR VISIT colon screening Encounters Encounter Location Date Provider Diagnosis [facility] [place] [address] [place], [place] [phone] 05/24/2023 Devonte Leahy Jr Plan Of Treatment No Information Progress Notes * LOSSALLY MORA ADOB:[birth year] (58 yo F)Acc No.[id number]:05/24/2023 COLON WITH MAC Patient:?SALLY MIRELES Provider:?Devonte Leahy MD :1965???Age:57 Y???Sex:Female D ate:05/24/2023 Address:[address] [place] [address] [address] [facility] Pcp:Viky Campuzano Subjective: * Chief Complaints: * ???1. Colon screening. * Medical History:? Objective: * Vitals:? Assessment: Plan: * Treatment: * * The named appointment provid er may or may not be the originator of this progress note, and it is not deemed complete until electronically signed by the appointment provider. Sign off status: Pending * Provider:?Devonte Leahy MD Date:?0 05/24/2023 Generated for Shannani ng/Facolling/eTransmitting on:?04/23/2024 11:35 AM EDT
--- OUTSIDE RECORDS SUMMARY | 2024-04-23 11:36 | XMS_ITS | Patient Health Record ---
Author Organization [facility] Address [address] [place] [address] Care Team Providers Care Financial Planning Analyst Name Role Phone Viky Villegas Primary Care Provider Unavailab Devonte Landaverde Jr Unavailable [phone] Allergies Allergen (clinical drug ingredient) Drug/Non Drug Allergy documented on EMR Reaction Allergy Type Onset Date Status codeine Codeine Unknown Drug Allergy Active Results Component Value Reference Range Notes Glucose, Whole Blood Reviewed date:06/21/2023 01:51:22 PM Interpretation: Performing Lab:[facility], [address] [place] [phone] Notes/Report: Glucose, Whole Blood 145 60-115 mg/dL METER # : [id number] Pathology Reviewed date:06/27/2023 10:28:25 AM Interpretation: Performing Lab:[facility], [address] [place] [phone] Notes/Report: ---- Name: Kwadwo Monzon Fanta Age/Sex: 58/F : 1965 Unit#: [id number] Attend Dr: Devonte Leahy MD Re06/21/23 [place] [facility] [facility] [place] Disch: ---- SPEC : [id number] RECD : 06/21/23 STATUS: VANESA BATRES NUM: [id number] JOSE: 06/21/[address]: Devonte Leahy MD ENTERED: 06/21/23 SP TYPE: Surgical OTHR DR: Viky Villegas MD ORDERED: HE Stain/3, Gross Micro L4 Diagnosis Sigmoid, biopsy: Col onic mucosa within normal limits; negative for active, chronic or microscopic colitis. Clinical History Pre-Op Dx: Screening Post-Op Dx: Normal Microscopic Description Microscopic sections reviewed. Material Received Sigmoid bx's Gross Description Received in formalin labeled ?sigmoid biopsies? are 2 fragments of wolff-white soft tissue measuring 0.3 and 0. 4 cm in greatest dimension which are wrapped in lens paper and entirely submitted for microscopic examination, 2 pieces in cassette [facility] Copies To: Devonte Leahy MD [address] [place] [address] [id number] [place] [id number] Viky Villegas MD [address] [place] [address] [address] [place] [address] ---- Signed (signature on file) Gillian Wiley MD 06/25/23 0741 ---- END OF REPORT Reason For Referral No Information Medications Medication SIG (Take, Route, Frequency, Duration) Notes Start Date End Date Status Zolpidem Tartrate 10 MG Oral for 30 Active metFORMIN HCl ER 750 MG Oral for 30 Active Vitamin D3 25 MCG (1000 UT) Oral for 90 Active Trulicity 1.5 MG/0.5ML Subcutaneous for 28 Active Atorvastatin Calcium 80 MG TAKE ONE TABLET AT BEDTIME Oral for 90 Active Baclofen 10 MG Oral for 30 Act arabella Lurasidone HCl 60 MG Oral for 30 Active Gabapentin 600 MG Oral for 30 Active Invokana 300 MG Oral for 90 Ac tive MiraLax (colon prep) 17 GM/SCOOP mixed with Gatorade or Crystal Light Orally begin at 5:00 p.m. the day before the procedure for 1 day 03/21/2023 Active Vitamin B-2 100 MG TAKE 4 TABLETS EVERY MORNING Oral for 30 Active Pantoprazole Sodium 40 MG Oral for 90 Active Levothyroxine Sodium 75 MCG TAKE ONE TABLET EVERY DAY Oral for 90 E063,Unavailab le Active Social History Tobacco Use: Social History Observation Description Date Details (start date - stop date) Former Smoker NA - NA Tobacco Use/Smoking Question Answer Notes Patient is a former smoker How long has it been since you last smoked? > 10 years Alcohol Screen Question Answer Notes Did you have a drink contain ing alcohol in the past year? Yes How often did you have a dri nk containing alcohol in the past year? Never (0 point) How many drinks did you have on a typical day when you were drinking in the past year? 1 or 2 drinks (0 point) How often did you have 6 or more drinks on one occasion in the past year? Never (0 point) Points 0 Interpretation Negative Problems Problem Type SNOMED Code ICD Code Onset Dates Problem Status W/U Status Risk Notes Problem 974660055 Colon cancer screening (Z12.11) Active confirmed Problem 980957704 Irritable bowel syndrome with diarrhea (K58.0) Active confirmed Problem 638744887 Gastroesophageal reflux disease with esophagitis without hemorrhage (K21.00) Active confirmed Encounters Encounter Location Date Provider Diagnosis [facility] [place] Out[facility] [address] [place], [place] [phone] 06/21/2023 Devonte Leahy Jr Encounter for screening colonoscopy Z12.11 and Irritable bowel syndrome with diarrhea K58.0 [facility] [address] [place] [phone] 05/08/2023 Devonte Leahy Jr [facility] [address] [facility] [address] [place] [phone] 06/27/2023 Devonte Leahy Jr Assessments Encounter Date Diagnosis (ICD Code) Assessment Notes Treatment Notes Treatment Clinical Notes Section Notes 06/21/2023 Encounter for screening colonoscopy (ICD-10 - Z12.11) 06/21/2023 Irritable bowel syndrome with diarrhea (ICD-10 - K58.0) Plan Of Treatment Future Test Test Name Order Date COLONOSCOPY 03/21/2023 Insurance Providers Payer Name Payer Address Payer Phone Subscriber Number Group Number Insured Name Patient Relationship to Insured Coverage Start Date Coverage End Date [facility] [address] [place] [address] [id number] KASICTSALLY MORA Self - patient is the insured Medical (General) History Medical History History ICD Code Diabetes mellitus type 2 Autoimmune thyroiditis/hyperthyroidism Hyperlipidemia Colonoscopy , diverticulosis Gastroesophageal reflux dise ase, EGD 12/20, erosive gastritis and prepyloric ulcer Bipolar disorder Surgical History Surgery Date(Month/Year) section x2 1988,1996 knee replacement right appendectomy cholecystectomy Right great toe fusion partial hysterectomy 2007
--- OUTSIDE RECORDS SUMMARY | 2024-04-23 11:36 | XMS_ITS | Clinical Summary ---
Author Organization [facility] Address [address] [place] [address] Care Team Providers Care Engrosser Name Role Phone Viky Villegas MD Primary Care Provid er Allergies Active Allergy Reactions Criticality Noted Date Comments Codeine Nausea Only Low 10/04/2020 Medications Medication Sig Dispensed Refills Start Date End Date Status Acetaminophen Extra Strength 500 MG tablet Take 1 tablet by mouth 2 (two) times a day as needed. 0 07/04/2020 Active Invokana 300 MG TABS Take 1 tablet by mouth daily. 0 08/16/2020 Active ergocalciferol (VITAMIN D2) capsule 43124 units Take 1 capsule by mouth once a week. 0 08/09/2020 Active Lantus SoloStar 100 UNIT/ML injection Inject 25 Units under the skin daily. 0 07/04/2020 Active levothyroxine (SYNTHROID) tablet 100 mcg Take 1 tablet by mouth daily. 0 07/12/2020 Active metFORMIN (GLUCOPHAGE-XR) 750 MG 24 hr tablet Take 750 mg by mouth daily. 0 08/24/2020 Active omeprazole (PriLOSEC) 20 MG capsule Take 20 mg by mouth daily. 0 08/16/2020 Active zolpidem (AMBIEN) 10 MG tablet Take 10 mg by mouth every night at bedtime as needed. for sleep 0 09/07/2020 Active atorvastatin (LIPITOR) tablet 80 mg Take 80 mg by mouth daily. 0 Active Social History Tobacco Use Types Packs/Day Years Used Date Smoking Tobacco: Former Cigarettes Q uit: 10/04/2004 Smokeless Tobacco: Never Alcohol Use Standard Drinks/Week Comments Yes 0 (1 standard drink = 0.6 oz pur e alcohol) social Sex and Gender Information Value Date Recorded Sex Assigned at Not on file Gender Identity Not on file Sexual Orientation Not on file Last Filed Vital Signs Vital Sign Reading Time Taken Comments Blood Pressure - - Pulse 77 10/04/2020 1:20 PM EDT Temperature 36.8 ??C (98.2 ??F) 10/04/2020 1:20 PM ED T Respiratory Rate - - Oxygen Saturation 97% 10/04/2020 1:20 PM EDT Inhaled Oxygen Concentration - - Weight 74.4 kg (164 lb) 10/04/2020 1:20 PM EDT Height 154.9 cm (5' 1 ) 10/04/2020 1:20 PM EDT Body Mass Index 30.99 10/04/2020 1:20 PM EDT Plan of Treatment Health Maintenance Due Date Last Done Comments Hepatitis B Vaccines (1 of 3 - 3-dose series) 1965 Hepatitis C Screening 1965 COVID-19 Vaccine (#1) 1964 Depression Screening 1976 Preventative Health Evaluation 1982 DTap / Tdap / Td (1 - Tdap) 05/31/1983 Cervical Cancer Screening (P ap Smear) 1985 Colon Cancer Screening (Colonoscopy) 2009 Breast Cancer Screening (Mammogram) 2014 Shingrix-Zoster Vaccine (1 of 2) 2014 Influenza Vaccine (#1) 2023 Pneumococcal Vaccine Aged Out No long er eligible based on patient's age to complete this topic RSV Ped < 20 months Aged Out No longe r eligible based on patient's age to complete this topic Care Teams Engrosser Relationship Specialty Start Date End Date Viky Villegas MD [address] [place] [address] , [address] [facility] D/B/A: [facility] HALEY Loja [id number] PCP - General Internal Medicine 09/14/20
--- OUTSIDE RECORDS SUMMARY | 2024-04-23 11:36 | XMS_ITS ---
Author Organization [facility] Address [address] [place] [address] Care Team Providers Care Logistics Supervisor Name Role Phone Viky Villegas Primary Care Provider Devotne Glass Jr Unavailable REASON FOR VISIT colon screening Encounters Encounter Location Date Provider Diagnosis [facility] [address] [place] [phone] 06/21/2023 Devonte Leahy Jr Encounter for screening colonoscopy Z12.11 and Irritable bowel syndrome with diarrhea K58.0 Assessments Encounter Date Diagnosis (ICD Code) Assessment Notes Treatment Notes Treatment Clinical Notes Section Notes 06/21/2023 Encounter for screening colonoscopy (ICD-10 - Z12.11) 06/21/2023 Irritable bowel syndrome with diarrhea (ICD-10 - K58.0) Plan Of Treatment No Information Progress Notes * SALLY MIRELES ADOB:[birth year] (58 yo F)Acc No.[id number]:06/21/2023 COLON WITH MAC Patient:?SALLY MIRELES Provider:?Devonte Leahy MD :1965???Age:58 Y???Sex:Female D ate:06/21/2023 Address:[address] [place] [address] [id number] Pcp:Viky Campuzano Subjective: * Chief Complaints: * ???1. Colon screening. * Medical History:? Objective: * Vitals:? Assessment: * Assessment: 1.?Encounter for screening c olonoscopy - Z12.11 (Primary)???2.?Irritable bowel syndrome with diarrhea - K58.0??? Plan: * Treatment: * Procedure Codes:?99889 COLON OSCOPY AND BIOPSY * * The named appointment provid er may or may not be the originator of this progress note, and it is not deemed complete until electronically signed by the appointment provider. Sign off status: Pending * Provider:?Devonte Leahy MD Date:?0 06/21/2023 Generated for Wilian lewis/Emily/Priyasmitting on:?04/23/2024 11:35 AM EDT
--- OUTSIDE RECORDS SUMMARY | 2024-04-23 11:36 | XMS_ITS ---
Author Organization [facility] Address [address] [place] [phone] Care Team Providers Care Sheep Farm Worker Name Role Phone Viky Villegas Primary Care Provider UnavailDevonte Yanes Jr Unavailable [phone] REASON FOR VISIT pathology Encounters Encounter Location Date Provider Diagnosis [facility] [address] [facility] [address] [place] [phone] 06/27/2023 Devonte Leahy Jr Plan Of Treatment No Information Progress Notes * SALLY MIRELES ADOB:[birth year] (58 yo F)Acc No.[id number]:06/27/2023 Patient:?SALLY MIRELES Fanta :1965???Age:58 Y???Sex:Female Address:[address] [place] [address], [facility] [place] [address] * true * Date:? Generated for Shannani joshua/Emily/eTransmitting on:?04/23/2024 11:35 AM EDT
== END 2024-04-23 10:25 | disposition home or self-care (01) ==
PROVIDERS: PCP Internal Medicine; Visit Provider Internal Medicine
DX: Z00.00 Encounter for general adult medical examination without abnormal findings (principal); F31.9 Bipolar disorder, unspecified; E11.42 Type 2 diabetes mellitus with diabetic polyneuropathy; E11.40 Type 2 diabetes mellitus with diabetic neuropathy, unspecified; H66.91 Otitis media, unspecified, right ear

== ENCOUNTER 2024-07-24 13:43 | Outpatient (AMB) | payer OTHER, SELFPAY ==
[2024-07-24 13:45] VITALS: BP 94/70; PULSE 70; O2SAT 94; BMI 27.2
--- NOTE | 2024-07-24 13:45 | A.OFFVIS_ITS ---
Vital Signs 07/24/24 13:45 Height 5 ft 1 in Weight 144 lb 2.917 oz BMI 27.2 BP 94/70 Blood Pressure Location Lt brachial Position Sitting Pulse 70 Pulse Source Pulse Oximeter Pulse Oximetry (%) 94 Oxygen Delivery Method Room Air Intake Visit Reasons: T2DM Intake Note: Patient present today for Type 2 Diabetes Mellitus Last Diabetic eye exam: April 2024 Last Podiatry Visit: September 2023 Random Glucose: 167 mg/dl HgA1C: 7.1% Appliance Service Supervisor Required: No Accompanied by: Self / Same As Patient Allergies codeine [CODEINE] Allergy (Intermediate, Verified 07/24/24 13:51) NAUSEA, nausea and vomiting Medication List - Last Reconciled 07/24/24 by Mendy Luu PA-C acetaminophen (Tylenol Extra Strength) 500 mg PO BID PRN 90 days alpha lipoic acid 600 mg PO DAILY atorvastatin 80 mg PO BEDTIME 90 days baclofen 10 mg PO TID PRN 30 days blood sugar diagnostic (FreeStyle Test strips) Use 4 test strip once a day blood-glucose meter (FreeStyle Lite Meter kit) As directed blood-glucose meter (FreeStyle Lite Meter kit) As directed blood-glucose sensor (FreeStyle Debora 3 Sensor device) Apply every 14 days As directed canagliflozin (Invokana) 300 mg PO DAILY 90 days cholecalciferol (vitamin D3) 25 mcg PO DAILY 90 days ciprofloxacin-dexamethasone 0.3-0.1 % 4 drps otic (ears) BID 7 days cyanocobalamin (vitamin B-12) 1,000 mcg PO DAILY 90 days dulaglutide (Trulicity) 1.5 mg (0.5 mL) subcut QWEEK folic acid 1 mg PO DAILY 90 days gabapentin 600 mg PO TID 30 days lancets (FreeStyle Lancets) Use 1 lancet once a day lancets (TRUEplus Lancets) As directed levothyroxine 75 mcg PO DAILY 90 days lidocaine 5% 1 patch topical DAILY PRN 30 days lurasidone mg PO magnesium oxide 400 mg PO BEDTIME meclizine 25 mg PO DAILY PRN 7 days metformin ER 1,500 mg (2 x 750 mg) PO DAILY 30 days ondansetron HCl 8 mg PO Q12H PRN 10 days pantoprazole 40 mg PO DAILY 90 days pen needle, diabetic (UltiCare Pen Needle) Use 1 pen needle once a day riboflavin (vitamin B2) 400 mg PO QAM sumatriptan succinate 25 mg PO Q2-4H PRN 30 days zolpidem 10 mg PO BEDTIME PRN 30 days HPI HPI T2DM: Details: Patient is a 59-year-old female with a significant past medical history of type 2 diabetes, peripheral neuropathy, hyperlipidemia, hypothyroidism presenting today for a diabetic follow-up. Endo: DM- She is currently on metformin 1500 mg, Invokana 300 mg, Trulicity 1.5 mg weekly. Her last A1c was 6.4. She is not on an GREGORY-inhibitor. No known nephropathy. Cholesterol is controlled with atorvastatin 80 mg. -She wants to get off metformin as it causes stomach upset. -Her glucose is higher today (167) in office because she ate chocolate cereal before coming here. Follows with Podiatry and Ophthalmology. She would like a cgm as she does not check her blood sugars daily. She states that she is terrified of needles and usually has to ask for help to check her blood sugars. She also has poor sensation on her finger tips due to years of diabetes and finger pricks. She states that its on and off with sensation so she just does not check. She has been diabetic since 2014. Hypothyroid-levothyroxine dosage is 75 mcg. Last TSH was WNL. CV: Blood pressure today in the office 94/70. Not on antihypertensives. [facility] Medical History (Updated 06/16/24 @ 10:21 by Viky Campuzano MD) Type 2 diabetes mellitus Peripheral sensory neuropathy due to type 2 diabetes mellitus PVD (peripheral vascular disease) Snoring Insomnia Ingrown toenail Mild recurrent major depression Right knee pain Skin mole Dyslipidemia Fear of needles Depression with anxiety Bipolar disorder Insomnia Autoimmune thyroiditis Diabetes mellitus Knee pain Surgical History History of colonoscopy H/O hysterectomy for benign disease Previous section Hx of cholecystectomy Hx of appendectomy History of total right knee replacement Family History Father Heart disease Mother Brain aneurysm COPD (chronic obstructive pulmonary disease) Social History Housing: House Alcohol intake: former Patient Tobacco Use Status: Former Tobacco user Tobacco use type: Cigarette e-Cigarette/Vaping Use: Never Used Second Hand Smoke Exposure: No service: No Current occupational status: unemployed Cognitive needs: No Hearing needs: No Vision needs: Yes (Glasses.) Physical Exam Vital Signs: Last Vital Signs Pulse 70 07/24/24 13:45 BP 94/70 07/24/24 13:45 Pulse Ox 94 07/24/24 13:45 Oxygen Delivery Method Room Air 07/24/24 13:45 BMI result Body Mass Index 27.2 Const Orientation/consciousness: patient oriented x3 Neck Neck: Yes no lymphadenopathy Thyroid: Thyroid normal Carotids: no bruits Resp Auscultation: clear to auscultation bilaterally Cardio Rate: regular rate Rhythm: regular rhythm Heart sounds: S1 normal heart sound present and S2 normal heart sound present Peripheral pulses: dorsalis pedis present Neuro General: patient oriented x3, gait normal and no focal motor deficits Extrem Other: Monofilament sensation intact bilaterally. Vibratory sensation intact bilaterally. Skin intact. General: Yes normal to inspection Results AMB Hemoglobin A1c AMB Hemoglobin A1c 7.1 % Last Edit by TEODORO Strong on 07/24/24 14:03 Results Reviewed Results Reviewed: Laboratory Last Values Glucose (Clinic) 167 mg/dL (60-115) H 07/24/24 13:53 Laboratory Tests 04/23/24 04/23/24 09:49 10:56 Creatinine 0.68 Estimated GFR > 60 Fasting Glucose 110 H Hgb A1c (Clinic) 6.4 H AST 13 ALT 19 Alkaline Phosphatase 48 Triglycerides 120 Cholesterol 136 LDL Cholesterol, Calc 75 HDL Cholesterol 37 L Assessment & Plan Assessment & Plan (1) Peripheral sensory neuropathy due to type 2 diabetes mellitus: Code(s): E11.42 - Type 2 diabetes mellitus with diabetic polyneuropathy Category: Medical Plan: increase trulicity to 3 mg/weekly continue invokana 300 mg daily decrease metformin 500 mg bid dm labs ordered to be completed prior to next appointment (2) Hyperlipidemia LDL goal <70: Code(s): E78.5 - Hyperlipidemia, unspecified Category: Medical Plan: continue atorvastatin 80 mg Orders: Orders AMB Hemoglobin A1c Today E11.40 - Type 2 diabetes mellitus with diabetic neuropathy, unspecified, Z13.9 - Encounter for screening, unspecified Microalbumin, Random (w Creat) Today E11.42 - Type 2 diabetes mellitus with diabetic polyneuropathy, E78.5 - Hyperlipidemia, unspecified, I10 - Essential (primary) hypertension Hemoglobin A1c Today E11.42 - Type 2 diabetes mellitus with diabetic polyneuropathy, E78.5 - Hyperlipidemia, unspecified, I10 - Essential (primary) hypertension, R73.01 - Impaired fasting glucose Comprehensive [place]. Panel Fast Today E11.42 - Type 2 diabetes mellitus with diabetic polyneuropathy, E78.5 - Hyperlipidemia, unspecified, I10 - Essential (primary) hypertension Medications: New dulaglutide (Trulicity) 3 mg (0.5 mL) subcut QWEEK 2 mL 11RF metformin ER 500 mg PO BID 180 tabs 2RF Discontinued dulaglutide (Trulicity) Discontinued Reason: Doctor's Order 1.5 mg (0.5 mL) subcut QWEEK 2 mL 5RF E11.65 - Type 2 diabetes mellitus with hyperglycemia metformin ER Discontinued Reason: Doctor's Order 1,500 mg (2 x 750 mg) PO DAILY 30 days 60 tabs 2RF Coding Level of Care Code Est Pt Level 4 (88342) Complex EM visit Add On G2211 Diagnoses Peripheral sensory neuropathy due to type 2 diabetes mellitus E11.42 Hyperlipidemia LDL goal <70 E78.5
--- OUTSIDE RECORDS SUMMARY | 2024-07-24 13:50 | XMS_ITS ---
Author Organization [facility] Address [address] [place] [address] Care Team Providers Care Lead Caregiver Name Role Phone Viky Villegas Primary Care Provider Devonte Glass Jr Unavailable [phone] REASON FOR VISIT colon screening Encounters Encounter Location Date Provider Diagnosis [facility] [place] [address] [place], [place] [id number] 05/24/2023 Devonte Leahy Jr Plan Of Treatment No Information Progress Notes * LOSSALLY MORA ADOB:[birth year] (59 yo F)Acc No.[id number]:05/24/2023 COLON WITH MAC Patient:?SALLY MIRELES Provider:?Devonte Leahy MD :1965???Age:57 Y???Sex:Female D ate:05/24/2023 Address:[address] [place] [address] [address], [place] [id number] Pcp:Viky Campuzano Subjective: * Chief Complaints: * [...] MD Date:?0 05/24/2023 Generated for Shannani ng/Facolling/eTransmitting on:?07/24/2024 01:50 PM EDT
[2024-07-24 13:57] LABS: Glucose, Whole Blood 167 mg/dL (60-115)
== END 2024-07-24 14:17 | disposition home or self-care (01) ==
LOC: HO.ENCR 13:44
PROVIDERS: PCP Internal Medicine; Visit Provider Physician Assistant
DX: Z13.9 Encounter for screening, unspecified (principal); E11.40 Type 2 diabetes mellitus with diabetic neuropathy, unspecified; E11.42 Type 2 diabetes mellitus with diabetic polyneuropathy; E78.5 Hyperlipidemia, unspecified

== ENCOUNTER → 2024-07-24 13:43 | Outpatient (BNVA) | payer OTHER, SELFPAY | PROVIDERS: PCP Internal Medicine; Visit Provider Physician Assistant | DX: E11.42 Type 2 diabetes mellitus with diabetic polyneuropathy (principal); E11.65 Type 2 diabetes mellitus with hyperglycemia; E78.5 Hyperlipidemia, unspecified; E03.9 Hypothyroidism, unspecified | CPT/HCPCS: 82947; 83036; 99212 ==

== ENCOUNTER 2024-10-22 10:28 | Outpatient (REF) | payer OTHER, SELFPAY ==
[2024-10-22 11:21] LABS: Hemoglobin A1C 165.2463 umol/L; Total Hemoglobin (HGBA1C) 3413.1756 umol/L
[2024-10-22 11:47] LABS: Alanine Aminotransferase 33 U/L (0-31); Albumin Level 4.2 g/dL (3.5-5.0); Alkaline Phosphatase 53 U/L (39-117); Anion Gap 12 (12-20); Aspartate Amino Transferase 23 U/L (5-31); Blood Urea Nitrogen 8 mg/dL (9-16); Calcium 8.8 mg/dL (8.4-10.2); Carbon Dioxide 26 mmol/L (22-29); Chloride 110 mmol/L (96-108); Estimated Glomerular Filt Rate > 60; Potassium 3.7 mmol/L (3.3-5.1); Sodium 144 mmol/L (135-145); Total Protein 6.3 g/dL (6.5-8.0)
[2024-10-22 12:07] LABS: Cholesterol 120 mg/dL (<200); HDL Cholesterol 33 mg/dL (>40); Triglycerides 83 mg/dL (<150)
[2024-10-22 12:28] LABS: Thyroid Stimulating Hormone 0.59 uIU/mL (0.32-4.0)
[2024-10-22 13:01] LABS: Microalbum/Creatinine Ratio Ur 8.0 ug/mg cr (<30)
== END 2024-10-22 10:29 | disposition home or self-care (01) ==
LOC: HO.LAB 10:28
PROVIDERS: Absent Provider Physician Assistant; PCP Internal Medicine; Visit Provider Internal Medicine
DX: E11.42 Type 2 diabetes mellitus with diabetic polyneuropathy (principal); I10 Essential (primary) hypertension; E78.5 Hyperlipidemia, unspecified; E55.9 Vitamin D deficiency, unspecified; E06.3 Autoimmune thyroiditis
CPT/HCPCS: 36415; 80053; 80061; 82043; 82306; 82570; 83036; 84443

== ENCOUNTER 2024-10-26 09:43 | Outpatient (AMB) | payer OTHER, SELFPAY ==
--- OUTSIDE RECORDS SUMMARY | 2023-05-10 05:00 | XMS_ITS ---
Author Organization [facility] Address [address] [place] [address] Care Team Providers Care Chief Recordist Name Role Phone Viky Villegas Primary Care Provider Devonte Glass Jr Unavailable REASON FOR VISIT screening colon Encounters Encounter Location Date Provider Diagnosis [facility] [place] [address] [place] [phone] 05/10/2023 Devonte Leahy Jr Plan Of Treatment No Information Progress Notes * SALLY MIRELES ADOB:[birth year] (59 yo F)Acc No.[id number]:05/10/2023 COLON WITH MAC Patient: SALLY LING Provider: Nirav Leahy MD :1965 A ge:57 Y S ex:Female Date:05/10/2023 Address:[address] [place] [address] [address] , [place] [id number] Pcp:Viky Campuzano Subjective: * Chief Complaints: * [...] 05/10/2023 Generated for Printi ng/Faxing/eTransmitting on: 0 10/26/2024 11:54 AM EDT
--- OUTSIDE RECORDS SUMMARY | 2023-05-24 08:50 | XMS_ITS ---
Author Organization [facility] Address [address] [place] [address] Care Team Providers Care Millwright Supervisor Name Role Phone Viky Villegas Primary Care Provider Devonte Glass Jr Unavailable REASON FOR VISIT colon screening Encounters Encounter Location Date Provider Diagnosis [facility] [place] [address] [place], [place] [phone] 05/24/2023 Devonte Leahy Jr Plan Of Treatment No Information Progress Notes * SALLY MIRELES ADOB:[birth year] (59 yo F)Acc No.[id number]:05/24/2023 COLON WITH MAC Patient: SALLY LING Provider: Nirav Leahy MD :1965 A ge:57 Y S ex:Female Date:05/24/2023 Address:[address] [place] [address] [address], [place] [facility] Pcp:Viky Campuzano Subjective: * Chief Complaints: * [...] 05/24/2023 Generated for Printi ng/Facolling/eTransmitting on: 0 10/26/2024 11:54 AM EDT
--- OUTSIDE RECORDS SUMMARY | 2023-06-21 07:50 | XMS_ITS ---
Author Organization [facility] Address [address] [place] [address] Care Team Providers Care Crabbing Machine Operator Name Role Phone Viky Villegas Primary Care Provider Devonte Glass Jr Unavailable REASON FOR VISIT colon screening Encounters Encounter Location Date Provider Diagnosis [facility] [place] Outpatient [address] [place] [id number] 06/21/2023 Devonte Leahy Jr Encounter for screening colonoscopy Z12.11 and Irritable bowel syndrome with diarrhea K58.0 Assessments Encounter Date Diagnosis (ICD Code) Assessment Notes Treatment Notes Treatment Clinical Notes Section Notes 06/21/2023 Encounter for screening colonoscopy (ICD-10 - Z12.11) 06/21/2023 Irritable bowel syndrome with diarrhea (ICD-10 - K58.0) Plan Of Treatment No Information Progress Notes * SALLY MIRELES ADOB:[birth year] (59 yo F)Acc No.[id number]:06/21/2023 COLON WITH MAC Patient: Nirav GRIMES SALLY Jewell Provider: Nirav Leahy MD :1965 A ge:58 Y S ex:Female Date:06/21/2023 Address:[address] [place] [address] [address], [id number] Pcp:Viky Campuzano Subjective: * Chief Complaints: * [...] 06/21/2023 Generated for Wilian lewis/Emily/Nuryitting on: 0 10/26/2024 11:54 AM EDT
[2024-10-26 09:45] VITALS: BP 98/60; PULSE 77; O2SAT 98; BMI 27.5
--- NOTE | 2024-10-26 09:45 | A.OFFVIS_ITS ---
Vital Signs 10/26/24 09:45 Height 5 ft 1 in Weight 145 lb 8.081 oz BMI 27.5 BP 98/60 Blood Pressure Location Rt brachial Position Sitting Pulse 77 Pulse Source Pulse Oximeter Pulse Oximetry (%) 98 Oxygen Delivery Method Room Air Intake Visit Reasons: T2DM Intake Note: Patient present today for Type 2 Diabetes Mellitus Last Diabetic eye exam: 04/2024, [facility] Last Podiatry Visit: DUE Random Glucose: 129 mg/dl HgA1C: 6.6% 10/22/24 Business Performance Analyst Required: No Accompanied by: Self / Same As Patient Allergies codeine (CODEINE) Allergy (Intermediate, Verified 10/26/24 09:52) NAUSEA, nausea and vomiting Medication List - Last Reconciled 10/26/24 by Mendy Luu PA-C acetaminophen (Tylenol Extra Strength) 500 mg PO BID PRN 90 days alpha lipoic acid 600 mg PO DAILY atorvastatin 80 mg PO BEDTIME 90 days baclofen 10 mg PO TID PRN 30 days blood sugar diagnostic (FreeStyle Test strips) Use 4 test strip once a day blood-glucose meter (FreeStyle Lite Meter kit) As directed blood-glucose meter (FreeStyle Lite Meter kit) As directed blood-glucose sensor (FreeStyle Debora 3 Sensor device) Apply every 14 days As directed canagliflozin (Invokana) 300 mg PO DAILY 90 days cholecalciferol (vitamin D3) 25 mcg PO DAILY 90 days ciprofloxacin-dexamethasone 0.3-0.1 % 4 drps otic (ears) BID 7 days cyanocobalamin (vitamin B-12) 1,000 mcg PO DAILY 90 days folic acid 1 mg PO DAILY 90 days gabapentin 600 mg PO TID 30 days lancets (FreeStyle Lancets) Use 1 lancet once a day lancets (TRUEplus Lancets) As directed levothyroxine 75 mcg PO DAILY 90 days lidocaine 5% 1 patch topical DAILY PRN 30 days lurasidone mg PO magnesium oxide 400 mg PO BEDTIME meclizine 25 mg PO DAILY PRN 7 days ondansetron HCl 8 mg PO Q12H PRN 10 days pantoprazole 40 mg PO DAILY 90 days pen needle, diabetic (UltiCare Pen Needle) Use 1 pen needle once a day pregabalin 75 mg PO BID 30 days riboflavin (vitamin B2) 400 mg PO QAM sumatriptan succinate 25 mg PO Q2-4H PRN 30 days zolpidem 10 mg PO BEDTIME PRN 30 days HPI HPI T2DM: Details: Patient is a 59-year-old female with a significant past medical history of type 2 diabetes, peripheral neuropathy, hyperlipidemia, hypothyroidism presenting today for a diabetic follow-up. Endo: DM- She is currently on metformin 1000 mg daily, Invokana 300 mg, Trulicity 3 mg weekly. Her last A1c was 6.6. She is not on an GREGORY-inhibitor. No known nephropathy. Cholesterol is controlled with atorvastatin 80 mg. -She wants to get off metformin as it causes stomach upset. Follows with Podiatry and Ophthalmology. Denies any hyper or hypoglycemic events. Overall feeling well. 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 CV: Blood pressure today in the office 98/60. Not on antihypertensives. Cholesterol is managed with atorvastatin 80 mg. Last LDL was 71 PFSH Medical History (Updated 06/16/24 @ 10:21 by Viky Campuzano MD) Type 2 diabetes mellitus Peripheral sensory neuropathy due to type 2 diabetes mellitus PVD (peripheral vascular disease) Snoring Insomnia Ingrown toenail Mild recurrent major depression Right knee pain Skin mole Dyslipidemia Fear of needles Depression with anxiety Bipolar disorder Insomnia Autoimmune thyroiditis Diabetes mellitus Knee pain Surgical History History of colonoscopy H/O hysterectomy for benign disease Previous section Hx of cholecystectomy Hx of appendectomy History of total right knee replacement Family History Father Heart disease Mother Brain aneurysm COPD (chronic obstructive pulmonary disease) Social History Housing: House Alcohol intake: former Patient Tobacco Use Status: Former Tobacco user Tobacco use type: Cigarette e-Cigarette/Vaping Use: Never Used Second Hand Smoke Exposure: No service: No Current occupational status: unemployed Cognitive needs: No Hearing needs: No Vision needs: Yes (Glasses.) Physical Exam Vital Signs: Last Vital Signs Pulse 77 10/26/24 09:45 BP 98/60 10/26/24 09:45 Pulse Ox 98 10/26/24 09:45 Oxygen Delivery Method Room Air 10/26/24 09:45 BMI result Body Mass Index 27.5 Const Orientation/consciousness: patient oriented x3 HEENT Ears: hearing grossly normal bilaterally Neck Thyroid: Thyroid normal Lymphatic: no lymphadenopathy noted Resp Auscultation: clear to auscultation bilaterally Cardio Rate: regular rate Rhythm: regular rhythm Heart sounds: S1 normal heart sound present and S2 normal heart sound present Skin General skin exam: no rashes or lesions noted Neuro General: patient oriented x3, gait normal and no focal motor deficits Results Reviewed Results Reviewed: Laboratory Tests 07/24/24 10/22/24 13:56 10:41 Creatinine 0.64 Estimated GFR > 60 Fasting Glucose 110 H Hgb A1c (Clinic) 7.1 H Hemoglobin A1c % 6.6 H Triglycerides 83 Cholesterol 120 LDL Cholesterol, Calc 71 HDL Cholesterol 33 L Assessment & Plan Assessment & Plan (1) Type 2 diabetes mellitus: Code(s): E11.9 - Type 2 diabetes mellitus without complications Category: Medical Qualifiers: Diabetes mellitus longwall foreman insulin use: without custodial use Diabetes mellitus complication status: with neurologic complications Diabetes mellitus complication detail: with unspecified neuropathy Qualified Code(s): E11.40 - Type 2 diabetes mellitus with diabetic neuropathy, unspecified Plan: stop metformin 500 mg twice a day Increase Trulicity to 4.5 mg weekly Continue Invokana 300 mg daily (2) Dyslipidemia: Code(s): E78.5 - Hyperlipidemia, unspecified Category: Medical Plan: Continue current regimen Orders: Orders Hemoglobin A1c Today E11.40 - Type 2 diabetes mellitus with diabetic neuropathy, unspecified, E78.5 - Hyperlipidemia, unspecified, R73.01 - Impaired fasting glucose Microalbumin, Random (w Creat) Today E11.40 - Type 2 diabetes mellitus with diabetic neuropathy, unspecified, E78.5 - Hyperlipidemia, unspecified AMB Hemoglobin A1c Today E11.40 - Type 2 diabetes mellitus with diabetic neuropathy, unspecified Comprehensive Met. Panel Today E11.40 - Type 2 diabetes mellitus with diabetic neuropathy, unspecified, E78.5 - Hyperlipidemia, unspecified Medications: New dulaglutide (Trulicity) 4.5 mg (0.5 mL) subcut QWEEK 6 mL 3RF Discontinued metformin ER Discontinued Reason: Doctor's Order 500 mg PO BID 180 tabs 2RF dulaglutide (Trulicity) Discontinued Reason: Doctor's Order 3 mg (0.5 mL) subcut QWEEK 2 mL 11RF Coding Level of Care Code Est Pt Level 4 (93604) Complex EM visit Add On G2211 Diagnoses Type 2 diabetes mellitus with diabetic neuropathy, without long-term current use of insulin E11.40 Diabetes mellitus custodial insulin use: without longwall foreman use Diabetes mellitus complication status: with neurologic complications Diabetes mellitus complication detail: with unspecified neuropathy Dyslipidemia E78.5
[2024-10-26 10:04] LABS: Glucose, Whole Blood 129 mg/dL (60-115)
--- OUTSIDE RECORDS SUMMARY | 2024-10-26 11:54 | XMS_ITS | Patient Health Record ---
Author Organization [facility] Address [address] [place] [address] Care Team Providers Care Warehouse Processor Name Role Phone Viky Villegas Primary Care Provider Unavailab le Devonte Leahy Jr Unavailable Allergies Allergen (clinical drug ingredient) Drug/Non Drug Allergy documented on EMR Reaction Allergy Type Onset Date Status codeine Codeine Unknown Drug Allergy Active Reason For Referral No Information Medications Medication [...] Problem Status W/U Status Risk Notes Problem [id number] Colon cancer screening (Z12.11) Active confirmed Problem 779219840 Irritable bowel syndrome with diarrhea (K58.0) Active confirmed Problem [id number] Gastroesophageal reflux disease with esophagitis without hemorrhage (K21.00) Active confirmed Plan Of Treatment Future Test Test Name Order Date COLONOSCOPY 03/21/2023 Insurance Providers Payer Name Payer Address Payer Phone Subscriber Number Group Number Insured Name Patient Relationship to Insured Coverage Start Date Coverage End Date [facility] [address] Attn Claims [place] [id number] SALLY MIRELES Self - patient is the insured Medical (General) History Medical History History ICD Code Diabetes mellitus type 2 Autoimmune thyroiditis/hyperthyroidism Hyperlipidemia Colonoscopy , diverticulosis Gastroesophageal reflux dise ase, EGD 12/20, erosive gastritis and prepyloric ulcer Bipolar disorder Surgical History Surgery Date(Month/Year) section x2 1988,1996 knee replacement right appendectomy cholecystectomy Right great toe fusion partial hysterectomy 2007
--- OUTSIDE RECORDS SUMMARY | 2024-10-26 11:54 | XMS_ITS ---
Author Name CRIS Organization Unknown Encounters Encounter Type Encounter Reason Primary Diagnosis Location Date Ambulatory [facility] 11/22/2023 Care Team Organization Name Specialty Phone Email Start Date End Da te Replaced by [facility] 2024
--- OUTSIDE RECORDS SUMMARY | 2024-10-26 11:54 | XMS_ITS | Clinical Summary ---
Author Organization [facility] Address [address] [place] [address] Care Team Providers Care Head Coach Name Role Phone Viky Villegas MD Primary [...] 0 08/16/2020 Active ergocalciferol (VITAMIN D2) capsule 95243 units Take 1 capsule by mouth once [...] 77 10/04/2020 1:20 PM EDT Temperature 36.8 C (98.2 F) 10/04/2020 1:20 PM EDT Respiratory Rate - - Oxygen Saturation 97% 10/04/2020 1:20 PM EDT Inhaled Oxygen Concentration - - Weight 74.4 kg (164 lb) 10/04/2020 1:20 PM EDT Height 154.9 cm (5' 1 ) 10/04/2020 1:20 PM EDT Body Mass Index 30.99 10/04/2020 1:20 PM EDT Plan of Treatment Health Maintenance Due Date Last Done Comments Hepatitis C Screening 1965 COVID-19 Vaccine (#1) 1964 Depression Screening 1976 Preventative Health Evaluation 1982 DTap / Tdap / Td (1 - Tdap) 05/31/1983 Cervical Cancer Screening (P ap Smear) 1985 Colon Cancer Screening (Colonoscopy) 2009 Breast Cancer Screening (Mammogram) 2014 Shingrix-Zoster Vaccine (1 of 2) 2014 Influenza Vaccine (#1) 2024 RSV Adult > 60+ Yrs or Pregn ant (1 - 1-dose 75+ series) 05/31/2039 Hepatitis B Vaccines Aged Out No long er eligible based on patient's age to complete this topic Pneumococcal Vaccine Aged Out No long er eligible based on patient's age to complete this topic RSV Ped < 20 months Aged Out No longe r eligible based on patient's age to complete this topic Care Teams Head Coach Relationship Specialty Start Date End Date Viky Villegas MD [address] [facility] , [address] [place] [address] Physician Associ D/B/A: [facility] [place] [id number] PCP - General Internal Medicine 09/14/20
== END 2024-10-26 10:14 | disposition home or self-care (01) ==
LOC: HO.ENCR 09:44
PROVIDERS: PCP Internal Medicine; Visit Provider Physician Assistant
DX: E11.40 Type 2 diabetes mellitus with diabetic neuropathy, unspecified (principal); E78.5 Hyperlipidemia, unspecified

== ENCOUNTER → 2024-10-26 09:43 | Outpatient (BNVA) | payer OTHER, SELFPAY | PROVIDERS: PCP Internal Medicine; Visit Provider Physician Assistant | DX: E11.40 Type 2 diabetes mellitus with diabetic neuropathy, unspecified (principal); E78.5 Hyperlipidemia, unspecified; I10 Essential (primary) hypertension; R51.9 Headache, unspecified; E06.3 Autoimmune thyroiditis; F33.0 Major depressive disorder, recurrent, mild; E55.9 Vitamin D deficiency, unspecified; R80.9 Proteinuria, unspecified; E53.8 Deficiency of other specified B group vitamins; Z78.0 Asymptomatic menopausal state | CPT/HCPCS: 82947; 96127; 99212 ==

== ENCOUNTER 2024-10-26 10:20 | Outpatient (AMB) | payer OTHER, SELFPAY ==
[2024-10-26 10:38] VITALS: BP 92/64; PULSE 76; O2SAT 97; BMI 27.4
--- NOTE | 2024-10-26 10:38 | MHC.PC.OV ---
Vital Signs 10/26/24 10:38 Height 5 ft 1 in Weight 145 lb 4 oz BMI 27.4 BP 92/64 Blood Pressure Location Lt brachial Position Sitting Pulse 76 Pulse Source Pulse Oximeter Pulse Oximetry (%) 97 Oxygen Delivery Method Room Air Intake Visit Reasons: dm Supervisor Maintenance And Custodians Required: No Accompanied by: Self / Same As Patient Allergies codeine (CODEINE) Allergy (Intermediate, Verified 10/26/24 10:58) NAUSEA, nausea and vomiting Medication List - Last Reconciled 10/26/24 by Viky Campuzano MD acetaminophen (Tylenol Extra Strength) 500 mg PO BID PRN 90 days alpha lipoic acid 600 mg PO DAILY atorvastatin 80 mg PO BEDTIME 90 days baclofen 10 mg PO TID PRN 30 days blood sugar diagnostic (FreeStyle Test strips) Use 4 test strip once a day blood-glucose meter (FreeStyle Lite Meter kit) As directed blood-glucose meter (FreeStyle Lite Meter kit) As directed blood-glucose sensor (FreeStyle Debora 3 Sensor device) Apply every 14 days As directed canagliflozin (Invokana) 300 mg PO DAILY 90 days cholecalciferol (vitamin D3) 25 mcg PO DAILY 90 days ciprofloxacin-dexamethasone 0.3-0.1 % 4 drps otic (ears) BID 7 days cyanocobalamin (vitamin B-12) 1,000 mcg PO DAILY 90 days dulaglutide (Trulicity) 4.5 mg (0.5 mL) subcut QWEEK folic acid 1 mg PO DAILY 90 days gabapentin 600 mg PO TID 30 days lancets (FreeStyle Lancets) Use 1 lancet once a day lancets (TRUEplus Lancets) As directed levothyroxine 75 mcg PO DAILY 90 days lidocaine 5% 1 patch topical DAILY PRN 30 days lurasidone mg PO magnesium oxide 400 mg PO BEDTIME meclizine 25 mg PO DAILY PRN 7 days ondansetron HCl 8 mg PO Q12H PRN 10 days pantoprazole 40 mg PO DAILY 90 days pen needle, diabetic (UltiCare Pen Needle) Use 1 pen needle once a day pregabalin 75 mg PO BID 30 days riboflavin (vitamin B2) 400 mg PO QAM sumatriptan succinate 25 mg PO Q2-4H PRN 30 days zolpidem 10 mg PO BEDTIME PRN 30 days Tobacco use date assessed: 10/26/24 Dental Screening Dental Screen Date: 10/26/24 Did you have a dental visit in the last 12 months?: No Did you have a dental problem in the last 6 months where you did not have access to dental care?: No Was dental information given to patient?: No HPI HPI Comments History of Present Illness Details The patient is a 59-year-old female presenting for management of chronic conditions and preventative care. The patient has a history of hypertension, with recent blood pressure readings on the lower side, such as 90/60 mmHg, noted during a visit to her ict security specialist. She is currently on multiple medications, including atorvastatin and gabapentin, to manage her conditions. The patient has been diagnosed with diabetes mellitus, with a recent A1c of 6.6% and a random blood glucose of 129 mg/dL, which she attributes to recent coffee consumption. Her diabetes management plan was recently adjusted by her operations business partner, who increased her Trulicity dosage and discontinued metformin. She also has hypothyroidism and hyperlipidemia with an LDL within goal being 71. Also TSH is normal. The patient reports experiencing depression, for which she is prescribed lurasidone by her psychiatrist. She experiences frequent headaches, occurring four to five times a week, which are severe enough to wake her from sleep. The headaches are unilateral, located on the left side, and are relieved by taking 1500 mg of Tylenol. She denies any associated light sensitivity or visual disturbances. Preventative care measures include a scheduled mammogram and a bone density test, with the latter being ordered to coincide with the mammogram appointment to minimize inconvenience. [facility] Medical History (Updated 10/26/24 @ 11:54 by Viky Campuzano MD) Mild recurrent major depression Type 2 diabetes mellitus Peripheral sensory neuropathy due to type 2 diabetes mellitus PVD (peripheral vascular disease) Snoring Insomnia Ingrown toenail Right knee pain Skin mole Dyslipidemia Fear of needles Depression with anxiety Bipolar disorder Insomnia Autoimmune thyroiditis Diabetes mellitus Knee pain Surgical History History of colonoscopy H/O hysterectomy for benign disease Previous section Hx of cholecystectomy Hx of appendectomy History of total right knee replacement Family History Father Heart disease Mother Brain aneurysm COPD (chronic obstructive pulmonary disease) Social History (Reviewed 10/26/24 @ 10:39 by HARDY Caldera Housing: House Alcohol intake: former Patient Tobacco Use Status: Former Tobacco user Tobacco use type: Cigarette e-Cigarette/Vaping Use: Never Used Second Hand Smoke Exposure: No service: No Current occupational status: unemployed Cognitive needs: No Hearing needs: No Vision needs: Yes (Glasses.) Questionnaire PHQ-9 Over the last 2 weeks, how often have you been bothered by any of the following problems? 1. Little interest or pleasure in doing things: several days 2. Feeling down, depressed, or hopeless: several days 3. Trouble falling or staying asleep, or sleeping too much: nearly every day 4. Feeling tired or having little energy: several days 5. Poor appetite or overeating: several days 6. Feeling bad about yourself - or that you are a failure or have let yourself or your family down: not at all 7. Trouble concentrating on things, such as reading the newspaper or watching television: several days 8. Moving or speaking so slowly that other people could have noticed. Or the opposite - being so fidgety or restless that you have been moving around a lot more than usual: several days 9. Thoughts that you would be better off or of hurting yourself in some way: not at all Total score: 9 Depression Screening Interpretation: Positive (no suicidal thoughts) Depression Screening Follow-up: Existing condition, In treatment and Follow-up Visit Requested Depression Screening Done: Yes 84333 - PHQ-9 Billing: Yes Source: Developed by Drs. Clint Adair, Sameera Galloway, Paul Polanco and colleagues, with an educational sandoval from [employer]. Thrive Questionnaire Date Thrive assessed: 10/26/24 I am a: Patient What is your living situation today?: I have a steady place to live Within the past 12 months, did the food you bought not last and you didn't have the money to get more?: Sometimes True Within the past 12 months, did you worry whether your food would run out before you got money to buy more?: Sometimes True Do you have trouble paying for medicines?: No Do you have trouble getting transportation to medical appointments?: No Do you have trouble paying your heating and electricity bill?: No Do you have trouble taking care of your child, family member or friend?: No Do you have trouble with day-to-day activities such as bathing, preparing meals, shopping, managing finances, etc.?: No Are you currently unemployed and looking for a job?: No Are you interested in more education?: No Please select the resources that you would like help with: None Currently or been in a relationship where the following occur: No concerns reported THRIVE Score: 2 AUDIT C Alcohol Use Questionnaire (AUDIT-C) 1. How often do you have a drink containing alcohol?: Never 3. How often do you have six or more drinks on one occasion?: Never Total Score: 0 Score Reviewed/Action Taken: No АННА-7 AMB Questionnaire АННА-7 Date АННА - 7 assessed: 10/26/24 Feeling nervous, anxious, or on edge: 1 = Several days Not being able to stop or control worryin = Several days Worrying too much about different things: 1 = Several days Trouble relaxin = Several days Being so restless that it is hard to sit still: 1 = Several days Becoming easily annoyed or irritable: 0 = Not at all Feeling afraid as if something awful might happen: 1 = Several days Total АННА-7 score (0-4 normal; 5-9 mild; 10-14 moderate; 15-21 severe): 6 Source: Developed by Drs. Clint Adair, Sameera Galloway, Paul Polanco and colleagues, with an educational sandoval from [employer]. АННА-7 Assessment Billing АННА-7 Assessment Tool: АНАН-7 Assessment 58007 Review of Systems Const All systems reviewed & are unremarkable except as noted in HPI and below Card Denies chest pain at rest, Denies chest pain with activity, Denies edema, Denies irregular heart rhythm, Denies claudication, Denies dyspnea, Denies dyspnea on exertion, Denies orthopnea, Denies paroxysmal nocturnal dyspnea and Denies slow heart rate Resp Denies cough, Denies dyspnea and Denies dyspnea on exertion GI Denies abdominal pain, Denies change in bowel habits, Denies excessive flatus, Denies nausea and Denies vomiting Denies urinary incontinence, Denies urinary hesitancy and Denies urinary urgency Physical exam (Primary Care) Vital Signs: Last Vital Signs Pulse 76 10/26/24 10:38 BP 92/64 10/26/24 10:38 Pulse Ox 97 10/26/24 10:38 Oxygen Delivery Method Room Air 10/26/24 10:38 BMI result Body Mass Index 27.4 Tobacco/Smoking Status: Tobacco use Status Tobacco use date assessed 10/26/24 10/26/24 10:43 Patient Tobacco Use Status Former Tobacco user 10/26/24 10:43 Tobacco use type Cigarette 10/26/24 10:43 e-Cigarette/Vaping Use Never Used 10/26/24 10:43 PHQ-9: PHQ-9 Score PHQ-9: Total score 9 10/26/24 10:43 Depression Screening Interpretation: Positive (no suicidal thoughts) Depression Screening Follow-up: Existing condition, In treatment and Follow-up Visit Requested Thrive Assessment: Date of Thrive Assessment Date Thrive assessed 10/26/24 10/26/24 10:43 Currently or been in a relationship where the following occur: No concerns reported Resp Effort & Inspection: normal respiratory effort Auscultation: clear to auscultation bilaterally Cardio Jugular venous distension: no JVD Rate: regular rate Rhythm: regular rhythm Heart sounds: S1 normal heart sound present and S2 normal heart sound present Extrem General: Yes full ROM Coding Level of Care Code Est Pt Level 4 (41797) Complex EM visit Add On G2211 Diagnoses Type 2 diabetes mellitus with diabetic neuropathy, without long-term current use of insulin E11.40 Diabetes mellitus [facility] insulin use: without [facility] use Diabetes mellitus complication status: with neurologic complications Diabetes mellitus complication detail: with unspecified neuropathy Hyperlipidemia LDL goal <70 E78.5 Autoimmune thyroiditis E06.3 Persistent headaches R51.9 Mild recurrent major depression F33.0 Additional Codes PHQ-9 - 15258 - PHQ-9 Billing: Yes ([id number]) АННА-7 Assessment Billing - АННА-7 Assessment Tool: АННА-7 Assessment 11973 ([id number]) Time Spent (min) 24 Assessment & Plan Assessment & Plan (1) Type 2 diabetes mellitus: Code(s): E11.9 - Type 2 diabetes mellitus without complications Category: Medical Qualifiers: Diabetes mellitus [facility] insulin use: without [facility] use Diabetes mellitus complication status: with neurologic complications Diabetes mellitus complication detail: with unspecified neuropathy Qualified Code(s): E11.40 - Type 2 diabetes mellitus with diabetic neuropathy, unspecified (2) Hyperlipidemia LDL goal <70: Code(s): E78.5 - Hyperlipidemia, unspecified Category: Medical (3) Autoimmune thyroiditis: Code(s): E06.3 - Autoimmune thyroiditis Category: Medical (4) Persistent headaches: Code(s): R51.9 - Headache, unspecified Category: Medical (5) Mild recurrent major depression: Code(s): F33.0 - Major depressive disorder, recurrent, mild Category: Medical Plan Plan Patient was informed and verbally consented to the use of an ambient scribe for clinic note documentation during this visit. 1. Hypertension The patient's blood pressure is currently on the lower side, with a recent reading of 90/60 mmHg. Continue monitoring blood pressure and adjust medications as necessary. 2. Diabetes Mellitus The patient's diabetes management includes an A1c of 6.6% and a random blood glucose of 129 mg/dL. The operations business partner has adjusted her medication regimen by increasing Trulicity and discontinuing metformin. 3. Depression The patient is currently managed on lurasidone for depression. 4. Headaches The patient experiences frequent headaches, occurring four to five times a week, which are relieved by Tylenol. An MRI of the brain is planned, and a neurology referral will be made for further evaluation. 5. Preventative Care The patient is scheduled for a mammogram and a bone density test to coincide with the mammogram appointment. Orders: Orders Microalbumin, Random (w Creat) 4 Months E11.40 - Type 2 diabetes mellitus with diabetic neuropathy, unspecified, R80.9 - Proteinuria, unspecified Vitamin D 25-OH Total 4 Months E55.9 - Vitamin D deficiency, unspecified XR DEXA axial skeleton Today Z78.0 - Asymptomatic menopausal state MR head/brain wo con Today R51.9 - Headache, unspecified Comprehensive [place]. Panel Fast 4 Months E11.40 - Type 2 diabetes mellitus with diabetic neuropathy, unspecified Lipid Panel 4 Months E11.40 - Type 2 diabetes mellitus with diabetic neuropathy, unspecified, E78.5 - Hyperlipidemia, unspecified Vitamin B12 and Folate 4 Months E53.8 - Deficiency of other specified B group vitamins Thyroid Stimulating Hormone 4 Months E06.3 - Autoimmune thyroiditis Referrals Neurology Referral R51.9 - Headache, unspecified Medications: New magnesium glycinate 300 mg (3 x 100 mg magnesium) PO BEDTIME 270 caps 1RF 90 days R51.9 - Headache, unspecified sumatriptan succinate do not exceed 8 doses per 24 hrs 25 mg PO Q2-4H PRN 9 tabs 3RF migraine headache 30 days R51.9 - Headache, unspecified Discontinued magnesium oxide Discontinued Reason: Patient Completed Course 400 mg PO BEDTIME 30 tabs 6RF
--- OUTSIDE RECORDS SUMMARY | 2024-10-26 13:06 | XMS_ITS | Encounter Summary ---
Author Organization [facility] Address [address] [place] [phone] Phone Care Team Providers Care Marketing Research Coordinator Name Role Phone Viky Villegas MD Primary Care Provid er Encounter Details Date Type Department Care Team (Late st Contact Info) Description 06/25/2022 Procedure Pass [facility]IOPER[facility]IVE [facility]PT [address] [place] [address] Social History Tobacco Use Types Packs/Day Years Used Date Smoking Tobacco: Former Cigarettes 0 02/11/1998 - 02/11/2003 Smokeless Tobacco: Never Alcohol Use Standard Drinks/Week Comments Yes 0 (1 standard drink = 0.6 oz pur e alcohol) Holiday drinks Education Answer Date Recorded Are you interested in more education? Not on bertram e 06/08/2022 Are you concerned about learning? Not on file 06/08/2022 No 06/08/2022 No 06/08/2022 Intimate Partner Violence Answer Date R ecorded Are you denied basic needs s uch as food, clothing, or medical care? No 06/25/2022 In the past 12 months have y ou been in a relationship with a person who hurts, threatens, or tries to control you? No 06/25/2022 Are you denied basic needs s uch as food, clothing, or medical care? No 06/25/2022 In the past 12 months have y ou been in a relationship with a person who hurts, threatens, or tries to control you? No 06/25/2022 Comments No Sex and Gender Information Value Date Recorded Sex Assigned at Female 12/13/2020 2:21 PM EDT Legal Sex Female 2:14 PM EDT Gender Identity Female 12/13/2020 2:21 PM EDT Sexual Orientation Lesbian or [place] 12/13/2020 2: 21 PM EDT documented as of this encounter Functional Status * Calculated C-SSRS Risk Score (Lifetime/Recent) Answer Date of Assessment Author No Risk Indicated 06/25/2022 6:06 PM EDT Lili Alves RN * [place] Suicide Severity Rating Scale (Screener/Recent Self-Report) Question Answer Date of Assessment Author 1. Wish to be (Past 1 Month) No 06/25/2022 6:06 PM EDT Lili Alves RN 2. Non-Specific Active Suici liliam Thoughts (Past 1 Month) No 06/25/2022 6:06 PM EDT Alexi Alves RN 6. Suicidal Behavior (Lifetime) No 6:06 PM EDT Lili Alves RN documented as of this encounter Plan of Treatment Not on file documented as of this encounter Visit Diagnoses Not on filedocumented in this encounter Care Teams Marketing Research Coordinator Relationship Specialty Start Date End Date Viky Villegas MD [address] [place] [address] PCP - General Internal Medicine 12/13/20 documented as of this encounter Additional Source Comments The information contained in this document represents components of the legal health record. It is not the complete legal health record.[facility]
--- OUTSIDE RECORDS SUMMARY | 2024-10-26 13:06 | XMS_ITS | Encounter Summary ---
Author Organization [facility] Address [address] [place] [address] Phone Care Team Providers Care Cloud Automation Tester Name Role Phone Viky Villegas MD Primary Care Provid er Encounter Details Date Type Department Care Team (Late st Contact Info) Description 06/13/2022 Transcribe Orders [facility] [address] [place] [address] Katya Canales CNP [address] [facility] [address] [place] [id number] [email or web address] Social History Tobacco Use Types Packs/Day Years [...] on file 06/08/2022 No 06/08/2022 No 06/08/2022 Comments No Sex and Gender Information Value Date Recorded Sex Assigned at Female 12/13/2020 2:21 PM EDT Legal Sex Female 2:14 PM EDT Gender Identity Female 12/13/2020 2:21 PM EDT Sexual Orientation Lesbian or [place] 12/13/2020 2: 21 PM EDT documented as of this encounter Plan of Treatment Not on file documented as of this encounter Visit Diagnoses Not on filedocumented in this encounter Care Teams Cloud Automation Tester Relationship Specialty Start Date End Date Viky Villegas MD [address] [place] [address] PCP - General Internal Medicine 12/13/20 documented as of this encounter Additional Source Comments The information contained in this document represents components of the legal health record. It is not the complete legal health record.[facility]
--- OUTSIDE RECORDS SUMMARY | 2024-10-26 13:06 | XMS_ITS | Clinical Summary ---
Author Organization [facility] Address Formerly [facility] [address] [place] [id number] Phone Care Team Providers Care Healthcare Business Analyst Name Role Phone Viky Villegas MD Primary Care Provid er Allergies Active Allergy Reactions Criticality Noted Date Comments Codeine Nausea Only Low 10/04/2020 Medications atorvastatin (LIPITOR) 80 MG tablet Take 80 mg by mouth nightly at bedtime. Active INVOKANA 300 mg tablet Take 300 mg by mouth daily. 2 Active cholecalciferol (VITAMIN D3) 25 MCG (1,000 unit) tablet Take 1,000 Units by mouth nightly at bedtime. 2 Active TRULICITY 1.5 mg/0.5 mL subcutaneous injection Inject 1.5 mg under the skin every 7 days. saturday 3 Active gabapentin (NEURONTIN) 400 MG capsule Take 400 mg by mouth 3 (three) times a day. 2 Active levothyroxine (SYNTHROID, LEVOTHROID) 75 MCG tablet Take 75 mcg by mouth daily. 3 Active metFORMIN (GLUCOPHAGE-XR) 750 MG 24 hr tablet Take 750 mg by mouth 2 (two) times a day. 2 Active pantoprazole (PROTONIX) 40 MG tablet Take 40 mg by mouth daily. 2 Active zolpidem (AMBIEN) 10 mg tablet Take 10 mg by mouth nightly at bedtime as needed. 1 Active PAIN RELIEF, ACETAMINOPHEN, 500 mg tablet Take 2 tablets (1,000 mg total) by mouth every 8 (eight) hours as needed. Take for mild post operative pain 0 3 Active senna (SENOKOT) 8.6 mg tablet Take 2 tablets by mouth nightly at bedtime. Take while taking opioid medication for opioid induced constipation. 3 Active Additional Information Patient not taking.Reported on 07/26/2022 polyethylene glycol (MIRALAX) 17 gram packet Take 17 g by mouth daily. Take while taking opioid medication for opioid induced constipation. 3 Active Additional Information Patient not taking.Reported on 07/26/2022 oxyCODONE 5 MG immediate release tablet Take 1-2 tablets (5-10 mg total) by mouth every 4 (four) hours as needed. Partial fill ok. For acute postop pain.Taper pain medications as you are able over the next week by either increasing the time between doses and/or decreasing the number of pills taken at one time. Call MD if you have persistent severe pain requiring a refill or need help to taper your meds. 30 tablet 3 Active Additional Information Patient not taking.Reported on 07/26/2022 aspirin 81 mg chewable tablet Take 1 tablet (81 mg total) by mouth 2 (two) times a day. Take Chewable Aspirin 81 mg twice daily for 4 weeks for DVT prophylaxis (Blood clot prevention). 3 Active cephalexin (KEFLEX) 500 MG capsule Take one capsule three times a day for one week for postop stitch abscess. 21 capsule 3 Active lurasidone (LATUDA) 60 mg tablet TAKE ONE TABLET EVERY EVENING 3 Active cloNIDine HCL (CATAPRES) 0.1 MG tablet Take by mouth nightly at bedtime. 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 Bro Talbert at [facility] on 06/25/2022. Anxiety 02/11/2017 Overview (06/11/2022): on meds Depressive disorder 02/11/2006 Type 2 diabetes mellitus without complications Overview (06/11/2022): sees dr wally villareal [place] on meds bs 70-122 Mixed hyperlipidemia Overview (06/11/2022): on meds Hypothyroidism Overview (06/11/2022): on po meds levels checked may 2022 med adjust. may 2022 no re check per p\t GERD (gastroesophageal reflux disease) Overview (06/11/2022): on meds Social History Tobacco Use Types Packs/Day Years Used Date Smoking Tobacco: Former Cigarettes 0 02/11/1998 - 02/11/2003 Smokeless Tobacco: Never Tobacco Cessation:Counseling Given: Not Answered Alcohol Use Standard Drinks/Week Comments Yes 0 (1 standard drink = 0.6 oz pur e alcohol) Holiday drinks Education Answer Date Recorded Are you interested in more education? Not on bertram e 06/08/2022 Are you concerned about learning? Not on file 06/08/2022 No 06/08/2022 No 06/08/2022 Digital Access Answer Date Recorded No 07/07/2022 No 07/07/2022 Reliable internet access at home? Not on file 07/07/2022 Device with a working camera? Not on file Intimate Partner Violence Answer Date R ecorded [...] or [place] 12/13/2020 2: 21 PM EDT Last Filed Vital Signs Vital Sign Reading Time Taken Comments Blood Pressure 106/69 06/26/2022 8:22 AM EDT Pulse 61 06/26/2022 8:22 AM EDT Temperature 36.8 C (98.3 F) 06/26/2022 8:22 AM EDT Respiratory Rate 18 06/26/2022 8:22 AM EDT Oxygen Saturation 98% 06/26/2022 8:22 AM EDT Inhaled Oxygen Concentration - - Weight 73 kg (161 lb) 06/25/2022 6:07 PM EDT Height 152.4 cm (5') 06/25/2022 6:07 PM EDT Body Mass Index 31.44 06/25/2022 6:07 PM EDT Plan of Treatment Health Maintenance Due Date Last Done Comments BLOOD PRESSURE 1964 TSH LEVEL 1964 DEPRESSION SCREENING 1976 SMOKING Hx and SMOKELESS TOBACCO SCREENING 1977 HEPATITIS C SCREENING 1982 HIV ONE-TIME SCREENING (18-65 YEARS) 1982 PAP SMEAR 1985 MAMMOGRAM 2004 COLOGUARD 2009 COLONOSCOPY 2009 COLORECTAL CANCER SCREENING 2009 FIT TEST 2009 FOBT 2009 SIGMOIDOSCOPY 2009 VIRTUAL COLONOSCOPY 2009 PNEUMOCOCCAL VACCINES (50+ years) (2 of 2 - PCV) 12/19/2016 12/20/2015, 07/25/2011 Adult Td,Tdap Booster 07/24/2021 07/25/2011, 003 DIABETIC EYE EXAM 06/11/2022 URINE MICROALBUMIN/CREATININE RATIO 06/11/2022 ZOSTER VACCINES (2 of 2) 06/14/2022 04/19/2022 HEMOGLOBIN A1C 12/14/2022 06/13/2022 CREATININE LEVEL 06/27/2023 06/26/2022 RSV VACCINE (1 - Risk 60-74 years 1-dose series) 2024 INFLUENZA VACCINE (#1) 2024 2, 11/29/2020, 11/11/2017, Additional history exists COVID-19 VACCINE ( season) 2024 12/22/2021, 06/14/2021, 06/24/2020, Additional history exists HEPATITIS A VACCINES Aged Out No long er eligible based on patient's age to complete this topic HIB VACCINES Aged Out No longer eligi ble based on patient's age to complete this topic MENINGOCOCCAL VACCINES (ACWY) Aged Out No longer eligible based on patient's age to complete this topic MENINGOCOCCAL VACCINES (B) Aged Out N o longer eligible based on patient's age to complete this topic Medical Devices Implanted Type Area Warm In Device Identifier Shelf Expiration Date Model / Serial / Lot R Great Toe R Knee Replace. Total Stabilier + Tibial Insert Implanted:Qty: 1 on 06/25/2022 by Bro Talbert MD at [facility] Right: Knee [employer] 12/18/2026 [id number] / / [id number] Description:The implant type , laterality (when applicable), size, and expiration date have been visually and verbally confirmed by the Surgeon, Circulating RN and Scrub Personnel. Procedures Procedure Name Priority Date/Time Associated Diagnosis Comments BASIC METABOLIC PANEL Routine 06/26/2022 5:57 AM EDT HEMOGLOBIN A1C Routine 06/13/2022 11:54 AM EDT Preop testing from Last 3 Months or Most Recently Relevant to Health Maintenance Results * (ABNORMAL) Basic metabolic panel (06/26/2022 5:57 AM EDT) SODIUM 139 136 - 145 mmol/L [facility] CHLORIDE 106 95 - 106 mmol/L [facility] POTASSIUM 3.9 3.5 - 5.2 mmol/L [facility] CO2 22 20 - 31 mmol/L [facility] BUN 13 9 - 23 mg/dL [facility] CREATININE 0.61 0.50 - 1.30 mg/dL [facility] GLUCOSE 135(H) 74 - 106 mg/dL [facility] CALCIUM 8.8 8.7 - 10.4 mg/dL [facility] EGFR 104 >60 mL/min/1.7 3m2 [facility] Comment:Estimated glomerular filtration rate calculated using the CKD-EPI refit equation. ANION GAP 11 3 - 17 mmol/L [facility] Blood 06/26/2022 5:57 AM EDT 06/26/2022 6:27 AM EDT us Roderick Capone MD LAB BLOOD ORDERABLES Final Resul t [facility] [address] [place] [address] * (ABNORMAL) Hemoglobin A1c (06/13/2022 11:54 AM EDT) HEMOGLOBIN A1C 6.3(H) 4.3 - 5.6 % [facility] CALC MEAN BLD GLUC 134 mg/dL [facility] 06/13/2022 11:5 4 AM EDT 06/13/2022 1:08 PM EDT us Katya Canales CNP LAB BLOOD ORDERABLES Final Result Performing Organization Address City/[facility] Co de Phone Number [facility] [address] [place] [address] from Last 3 Months or Most Recently Relevant to Health Maintenance Insurance MEDICARE PART A & B [facility] MEDICARE REPLACEMENT MEDICARE PART A & B [facility] MEDICARE REPLACEMENT MEDICARE PART A & [place] [address] [place] [address] CARE MEDICARE REPLACEMENT MEDICARE PART A & B [facility] CARE MEDICARE REPLACEMENT MEDICARE PART A & B CARE MEDICARE REPLACEMENT LUISANA SONI [facility] [address] [place] [id number] MEDICARE PART A & B Member Subscriber Plan / Payer (Ef fective 2012-Present) Name:Shana Monzon Member ID:[id number] Relation to Subscriber:Self Name:Shana Monzon Subscriber ID:[id number] Payer ID:[id number] Group ID:Not on file Type:Medicare Address: [employer] [address] [place] [id number] [place] [address] CARE MEDICARE REPLACEMENT MEDICARE PART A & B CARE MEDICARE REPLACEMENT [address] [place] [id number] MEDICARE PART A & B Member Subscriber Plan / Payer (Ef fective 2012-Present) Name:Shana Monzon Member ID:[id number] Relation to Subscriber:Self Name:Shana Monzon Subscriber ID:[id number] Payer ID:[id number] Group ID:Not on file Type:Medicare Address: [employer] [address] [place] [address] [place] [address] CARE MEDICARE REPLACEMENT MEDICARE PART A & B [facility] MEDICARE REPLACEMENT Care Teams Healthcare Business Analyst Relationship Specialty Start Date End Date Viky Villegas MD [address] [place] [address] PCP - General Internal Medicine 12/13/20 Additional Source Comments The information contained in this document represents components of the legal health record. It is not the complete legal health record.[facility]
--- OUTSIDE RECORDS SUMMARY | 2024-10-26 13:06 | XMS_ITS | Encounter Summary ---
Author Organization [facility] Address [address] [place] [address] [place] [phone] Phone Care Team Providers Care Sales Order Specialist Name Role Phone Viky Villegas MD Primary Care Provid er Encounter Details Date Type Department Care Team (Late st Contact Info) Description 03/22/2022 Transcribe Orders [facility] [address] [place] [address] Dianne Bhatia CNP [address] [address] [email or web address] Social History Tobacco Use Types Packs/Day Years Used Date Smoking Tobacco: Never Assessed Comments Unknown Sex and Gender Information Value Date Recorded [...] on filedocumented in this encounter Care Teams Sales Order Specialist Relationship Specialty Start Date End Date Viky Villegas MD [address] [place] [address] PCP - General Internal Medicine 12/13/20 documented as of this encounter Additional Source Comments The information contained in this document represents components of the legal health record. It is not the complete legal health record.[facility]
== END 2024-10-26 11:18 | disposition home or self-care (01) ==
LOC: HO.HMCH 10:20
PROVIDERS: PCP Internal Medicine; Visit Provider Internal Medicine
DX: E11.40 Type 2 diabetes mellitus with diabetic neuropathy, unspecified (principal); E78.5 Hyperlipidemia, unspecified; E06.3 Autoimmune thyroiditis; R51.9 Headache, unspecified; F33.0 Major depressive disorder, recurrent, mild

== ENCOUNTER 2024-10-29 09:21 | Outpatient (AMB) | payer OTHER, SELFPAY ==
--- OUTSIDE RECORDS SUMMARY | 2023-05-10 05:00 | XMS_ITS ---
Author Organization [facility] Address [address] [place] [address] Care Team Providers Care Snaker Name Role Phone Viky Villegas Primary Care Provider Devonte Glass Jr Unavailable REASON FOR VISIT screening colon Encounters Encounter Location Date Provider Diagnosis [facility] [place] [address] [place] [phone] 05/10/2023 Devonte Leahy Jr Plan Of Treatment No Information Progress Notes * SALLY MIRELES ADOB:[birth year] (59 yo F)Acc No.[id number]:05/10/2023 COLON WITH MAC Patient: SALLY LING Provider: Nirav Leahy MD :1965 A ge:57 Y S ex:Female Date:05/10/2023 Address:[address] [place] [address] [address] , [place] [id number] Pcp:Viky Campuzano Subjective: * Chief Complaints: * 1 . Screening colon. * Medical History: Objective: * Vitals: Assessment: Plan: * Treatment: * * The named appointment provid er may or may not be the originator of this progress note, and it is not deemed complete until electronically signed by the appointment provider. Sign off status: Pending * Provider: Nirva Leahy MD Date: 0 05/10/2023 Generated for Printi ng/Faxing/eTransmitting on: 0 10/29/2024 10:55 AM EDT
--- OUTSIDE RECORDS SUMMARY | 2023-05-24 08:50 | XMS_ITS ---
Author Organization [facility] Address [address] [place] [address] Care Team Providers Care Demonstrator Sales Name Role Phone Viky Villegas Primary Care Provider Devonte Glass Jr Unavailable REASON FOR VISIT colon screening Encounters Encounter Location Date Provider Diagnosis [facility] [place] [address] [place], [place] [phone] 05/24/2023 Devonte Leahy Jr Plan Of Treatment No Information Progress Notes * SALLY MIRELES ADOB:[birth year] (59 yo F)Acc No.[id number]:05/24/2023 COLON WITH MAC Patient: SALLY LING Provider: Nirav Leahy MD :1965 A ge:57 Y S ex:Female Date:05/24/2023 Address:[address] [place] [address] [address], [place] [id number] Pcp:Viky Campuzano Subjective: * Chief Complaints: * [...] 05/24/2023 Generated for Printi ng/Facolling/eTransmitting on: 0 10/29/2024 10:55 AM EDT
--- OUTSIDE RECORDS SUMMARY | 2023-06-21 07:50 | XMS_ITS ---
Author Organization [facility] Address [address] [place] [address] Care Team Providers Care Senior It Auditor Name Role Phone Viky Villegas Primary Care Provider Dveonte Glass Jr Unavailable [phone] REASON FOR VISIT colon screening Encounters Encounter Location Date Provider Diagnosis [facility] [place] [address] [place] [id number] 06/21/2023 Devonte Leahy Jr Encounter for screening colonoscopy Z12.11 and Irritable bowel syndrome with diarrhea K58.0 Assessments Encounter Date Diagnosis (ICD Code) Assessment Notes Treatment Notes Treatment Clinical Notes Section Notes 06/21/2023 Encounter for screening colonoscopy (ICD-10 - Z12.11) 06/21/2023 Irritable bowel syndrome with diarrhea (ICD-10 - K58.0) Plan Of Treatment No Information Progress Notes * SALLY MIRELES ADOB:[birth year] (59 yo F)Acc No.[id number]:06/21/2023 COLON WITH MAC Patient: Nirav GRIMES SALLY Jewell Provider: Nirav Leahy MD :1965 A ge:58 Y S ex:Female Date:06/21/2023 Address:[address] [place] [address] [address], [id number] Pcp:Viky Campuzano Subjective: * Chief Complaints: * [...] 0 06/21/2023 Generated for Wilian lewis/Emily/Nuryitting on: 0 10/29/2024 10:55 AM EDT
[2024-10-29 09:25] VITALS: BP 100/62; PULSE 73; O2SAT 97; BMI 27.6
--- NOTE | 2024-10-29 09:25 | A.OFFVIS_ITS ---
Vital Signs 10/29/24 09:25 Height 5 ft 1 in Weight 146 lb BMI 27.6 BP 100/62 Blood Pressure Location Rt brachial Position Sitting Pulse 73 Pulse Source Pulse Oximeter Pulse Oximetry (%) 97 Oxygen Delivery Method Room Air Intake Visit Reasons: 2023 patient - LAINEZ Sail Maker Required: No Accompanied by: Self / Same As Patient Allergies codeine (CODEINE) Allergy (Intermediate, Verified 10/29/24 09:31) NAUSEA, nausea and vomiting Medication List - Last Reconciled 10/29/24 by EMBER Hurtado acetaminophen (Tylenol Extra Strength) 500 mg PO BID PRN 90 days alpha lipoic acid 600 mg PO DAILY atorvastatin 80 mg PO BEDTIME 90 days baclofen 10 mg PO TID PRN 30 days blood sugar diagnostic (FreeStyle Test strips) Use 4 test strip once a day blood-glucose meter (FreeStyle Lite Meter kit) As directed blood-glucose meter (FreeStyle Lite Meter kit) As directed blood-glucose sensor (FreeStyle Debora 3 Sensor device) Apply every 14 days As directed canagliflozin (Invokana) 300 mg PO DAILY 90 days cholecalciferol (vitamin D3) 25 mcg PO DAILY 90 days ciprofloxacin-dexamethasone 0.3-0.1 % 4 drps otic (ears) BID 7 days cyanocobalamin (vitamin B-12) 1,000 mcg PO DAILY 90 days dulaglutide (Trulicity) 4.5 mg (0.5 mL) subcut QWEEK folic acid 1 mg PO DAILY 90 days lancets (FreeStyle Lancets) Use 1 lancet once a day lancets (TRUEplus Lancets) As directed levothyroxine 75 mcg PO DAILY 90 days lidocaine 5% 1 patch topical DAILY PRN 30 days lurasidone mg PO magnesium glycinate 300 mg (3 x 100 mg magnesium) PO BEDTIME 90 days meclizine 25 mg PO DAILY PRN 7 days ondansetron HCl 8 mg PO Q12H PRN 10 days pantoprazole 40 mg PO DAILY 90 days pen needle, diabetic (UltiCare Pen Needle) Use 1 pen needle once a day pregabalin 75 mg PO BID 30 days riboflavin (vitamin B2) 400 mg PO QAM sumatriptan succinate 25 mg PO Q2-4H PRN 30 days sumatriptan succinate 25 mg PO Q2-4H PRN 30 days zolpidem 10 mg PO BEDTIME PRN 30 days HPI Comments Details: A 59-year-old female presents with a new concern of headache. Patient was last seen in April of [address] Delcid for sleep concerns, at which time she underwent an HST, which did not show evidence for sleep apnea. PMH is also notable for vitamin D deficiency, vitamin B12 deficiency, type 2 diabetes, HLD, HTN, bipolar depression, RLE neuropathy status post right TKR, and autoimmune thyroiditis. Pt reports she has been having increasing headaches for the past 3-4 months. These headaches started a few years ago w/o a known cause. Denies h/o migraine or headache prior to this. Reports her mother had an intracranial aneurysm- unsure if it ever ruptured, as her mother had in her sleep at age 74 of natural causes - had COPD and possible lung CA. ROS: Dizziness if she turns her head (more to the left than the right) or blinks her eyes, RLE (knee and foot), painful paresthesias s/p right TKR in 2020. Can be off balance at times, for instance would not be comfortable walking a larger dog. Has an annual diabetic eye exam. Her diabetes is well-controlled. Pertinent denials: Denies shooting neck pain. Lifestyle considerations: Admits she does not drink enough water. Just bought Gatorade powder to add electrolytes. 1 cup of coffee in the am Typically eats only dinner, may occasionally have a lunch- peanut butter sandwich or cup of mac and cheese. 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 States her sleep is terrible, but zolpidem helps her sleep 5-6 hours per day- states she is never tired. Occasionally has restless leg symptoms. Headache questionnaire * Types of headache disorders: 1 * Age/time of onset: a few years ago * Preceding causes: denies * Previous work-up: none Typical headache characteristics * Prodrome symptoms: denies * Aura: denies * Pain intensity: severe 10/10 * Location, quality, characteristics: left occipital sharp pain * Associated symptoms: allodynia, and sometimes nausea, dizziness, and activity intolerance * Atypical associated symptoms: sometimes has bilateral facial numbness and tingling- but this occurs w/wo the headache * Postdrome: denies * Aggravating factors during this headache: turning her head, more so to the left * Triggers that provoke this headache: none * Time of day this headache usually occurs: No specific time of day, but it can wake her up at night * Duration and Frequency: hours without treatment, now occurring 1-2 times 3-4 days per week. However, the left occipital region always feels odd, and her last fully clear head day was 4 months ago. * Headache impact on the patient's quality of life: has missed personal activities Current treatment strategies * Current acute medication use/interventions: Tylenol 1500mg- helps some at times. Sumatriptan 25mg- ineffective. * Current preventative medication use: pregabalin 75mg bid- for RLE painful paresthesias in right knee and lower extremities s/p right TKR in 2020. * Current non-pharmacological interventions: rest. states she is not an ice person [facility] Medical History (Updated 10/29/24 @ 10:35 by EMBER Hurtado) Anemia Mild recurrent major depression Type 2 diabetes mellitus Peripheral sensory neuropathy due to type 2 diabetes mellitus PVD (peripheral vascular disease) Snoring Insomnia Ingrown toenail Right knee pain Skin mole Dyslipidemia Fear of needles Depression with anxiety Bipolar disorder Insomnia Autoimmune thyroiditis Diabetes mellitus Knee pain Surgical History History of colonoscopy H/O hysterectomy for benign disease Previous section Hx of cholecystectomy Hx of appendectomy History of total right knee replacement Family History Father Heart disease Mother Brain aneurysm COPD (chronic obstructive pulmonary disease) Social History Housing: House Alcohol intake: former Patient Tobacco Use Status: Former Tobacco user Tobacco use type: Cigarette e-Cigarette/Vaping Use: Never Used Second Hand Smoke Exposure: No service: No Current occupational status: unemployed Cognitive needs: No Hearing needs: No Vision needs: Yes (Glasses.) Physical Exam Vital Signs: Last Vital Signs Pulse 73 10/29/24 09:25 BP 100/62 10/29/24 09:25 Pulse Ox 97 10/29/24 09:25 Oxygen Delivery Method Room Air 10/29/24 09:25 BMI result Body Mass Index 27.6 Const Orientation/consciousness: patient oriented x3 Resp Effort & Inspection: normal respiratory effort and able to speak in complete sentences Neuro Other: No palpable scalp tenderness. Forward head posture Bilateral moderate posterior cervical and upper trapezius tightness. Cervical ROM: Limited through, more so to the left Left Spurling: Elicits nonradiating left upper trap focal tenderness Right Spurling: Elicits nonradiating left upper trap focal tenderness General: patient oriented x3 Cranial nerves: Yes CN's II-XII intact bilaterally Cognition (Neuro): normal cognition Gait exam (Neuro): Normal gait present Motor exam (neuro): 5/5 motor strength present throughout Psych Appearance: grossly normal Mental Status: mental status grossly normal Speech and movement: Normal speech and movement present Affect: normal affect Assessment & Plan Assessment & Plan (1) Worsening headaches: Code(s): R51.9 - Headache, unspecified Category: Medical (2) Left-sided headache: Code(s): R51.9 - Headache, unspecified Category: Medical Plan Discussion notes Discussed that the patient?s worsening headache symptoms may be due to chronic migraine with and without aura, cervicogenic headache (though patient denies neck pain), and/or a secondary headache process. Thus, as she is over the age of 59 with a new/worsening headache and having symptoms of intermittent episodes of bilateral facial numbness/tingling, dizziness elicited by blinking and lateral head rotation, in setting of a first-degree family history of intracranial aneurysm, she is advised to undergo a formal workup to assess for underlying secondary intracranial and vascular etiologies, as outlined below. You are advised to undergo the following: * Brain MRI with and without contrast * CT angio head and neck * XR C-spine with flexion and extension * PT eval and treat * Labs for common underlying etiologies Future considerations: In-lab sleep study Headache Management Tips Combining good self-care with some helpful tools can make managing headaches much easier. Healthy Habits ? Eat a balanced diet ? Drink enough water throughout the day, typically at least 64 oz of fluid per day ? Get regular, adequate sleep consisting of 7-9 hours of sleep per night ? Stay active with routine physical activity, typically at least 30 minutes 5 days per week can you text me tabs number ? Stay connected with friends and family, enjoy meaningful activities, and take care of your mood Tracking Your Headaches ? Write down when headaches happen, what helps, and any side effects of new treatments ? Tracking is most important after changes in your treatment plan ? Options: - Apps such as Migraine Angel - A simple paper calendar Non-Medication Strategies ? May apply warm pack to neck and back of head times 20 minutes every 1-2 hours as needed These strategies may not stop every attack, but over time, they can reduce headache frequency, intensity, and impact. For acute (as needed) headache treatment: It is important to take acute medications at the first sign of headache. However, please be aware that frequently using most acute medications may increase the frequency of your headache attacks, as well as make your other treatments less effective. * Trial increasing sumatriptan to Sumatriptan 25 mg tab, 1-2 tabs at onset of headache, may repeat in 2 hours. Max of 200 mg per 24 hours. * May take sumatriptan with OTC Tylenol 650-1,000mg every 4-6 hours, or Naproxen (liquid gels) 440mg q 12 hrs prn. * Potential adverse effects of triptans include, but are not limited to, nausea, fatigue, chest tightness/tingling (usually passes within a few minutes), and medication overuse headaches. Previous acute medication trials: Tylenol migraine up to 1500 mg ineffective Acute headache medication contraindications: possibly DHE d/t HLD dx- though recent lipid panel WNL For headache prevention medication: Preventative medications should be taken routinely as prescribed for best e ffect, it may take several weeks for full effect to take effect. * Start Riboflavin 400mg daily in the morning * This is generally well tolerated, however some people may experience mild abdominal discomfort from use. * This will cause your urine to become bright yellow or orange, which is expected and not of any concern. * Start Co Q10 400 mg daily in the morning, take with a higher fat food * Continue Magnesium glycinate 300 mg daily at bedtime * Magnesium comes in many subtypes, such as magnesium oxide, glycinate, citrate, and even try magnesium combinations. Additionally magnesium comes in many forms, including tablets, capsules, powders or even liquid formulations. There is not a specific magnesium subtype or form known to be significantly more effective than another. Rather, the magnesium subtype inform that you best tolerate, is the best version for you. * Possible side effects of magnesium include, but are not limited to, GI upset, abdominal cramping, loose stools, and diarrhea * Continue baclofen 10 mg twice a day, may take extra 10 mg tab once a day, max 30 mg per day Previous migraine prevention medication trials: None Migraine prevention medication contraindications: Avoid typical antidepressants in setting of unopposed mood stabilization therapy- due to bipolar diagnosis. We will follow-up upon review of above and with a follow-up clinic visit in 3-6 months or sooner as needed. Orders: Orders XR cervical spine w flex/ext Today M54.2 - Cervicalgia CT angio head neck Today E78.5 - Hyperlipidemia, unspecified, I10 - Essential (primary) hypertension, R42 - Dizziness and giddiness, R51.9 - Headache, unspecified, Z82.49 - Family history of ischemic heart disease and other diseases of the circulatory system Vitamin B12 and Folate Today D64.9 - Anemia, unspecified, E11.40 - Type 2 diabetes mellitus with diabetic neuropathy, unspecified, E53.8 - Deficiency of other specified B group vitamins, G62.9 - Polyneuropathy, unspecified, R51.9 - Headache, unspecified Homocysteine Today D64.9 - Anemia, unspecified, E11.40 - Type 2 diabetes mellitus with diabetic neuropathy, unspecified, E53.8 - Deficiency of other specified B group vitamins, G62.9 - Polyneuropathy, unspecified, R51.9 - Headache, unspecified Magnesium Today D64.9 - Anemia, unspecified, E11.40 - Type 2 diabetes mellitus with diabetic neuropathy, unspecified, E53.8 - Deficiency of other specified B group vitamins, G62.9 - Polyneuropathy, unspecified, R51.9 - Headache, unspecified C Reactive Protein Today D64.9 - Anemia, unspecified, E11.40 - Type 2 diabetes mellitus with diabetic neuropathy, unspecified, E53.8 - Deficiency of other specified B group vitamins, G62.9 - Polyneuropathy, unspecified, R51.9 - Headache, unspecified Erythrocyte Sedimentation Rate Today E53.8 - Deficiency of other specified B group vitamins, G62.9 - Polyneuropathy, unspecified, R51.9 - Headache, unspecified MR head/brain wo/w con Today R51.9 - Headache, unspecified, Z82.49 - Family history of ischemic heart disease and other diseases of the circulatory system Ferritin Today D64.9 - Anemia, unspecified, E11.40 - Type 2 diabetes mellitus with diabetic neuropathy, unspecified, E53.8 - Deficiency of other specified B group vitamins, G62.9 - Polyneuropathy, unspecified, R51.9 - Headache, unspecified IRON PROFILE Today D64.9 - Anemia, unspecified, E11.40 - Type 2 diabetes mellitus with diabetic neuropathy, unspecified, E53.8 - Deficiency of other specified B group vitamins, G62.9 - Polyneuropathy, unspecified, R51.9 - Headache, unspecified Vitamin B1 Today D64.9 - Anemia, unspecified, E11.40 - Type 2 diabetes mellitus with diabetic neuropathy, unspecified, E51.9 - Thiamine deficiency, unspecified, E53.8 - Deficiency of other specified B group vitamins, G62.9 - Polyneuropathy, unspecified, R51.9 - Headache, unspecified Vitamin B6 Today D64.9 - Anemia, unspecified, E11.40 - Type 2 diabetes mellitus with diabetic neuropathy, unspecified, E53.8 - Deficiency of other specified B group vitamins, G62.9 - Polyneuropathy, unspecified, R51.9 - Headache, unspecified JEREL Reflex Titer and Pattern Today D64.9 - Anemia, unspecified, E11.40 - Type 2 diabetes mellitus with diabetic neuropathy, unspecified, E53.8 - Deficiency of other specified B group vitamins, G62.9 - Polyneuropathy, unspecified, R51.9 - Headache, unspecified Rheumatoid Factor Today D64.9 - Anemia, unspecified, E11.40 - Type 2 diabetes mellitus with diabetic neuropathy, unspecified, E53.8 - Deficiency of other specified B group vitamins, G62.9 - Polyneuropathy, unspecified, R51.9 - Headache, unspecified PT Evaluation and Treatment Today R51.9 - Headache, unspecified Medications: New coenzyme Q10 Daily in a.m.. Take with higher fat food 400 mg PO DAILY 90 caps 3RF 90 days Changed From riboflavin (vitamin B2) 400 mg PO QAM 30 tabs 6RF To riboflavin (vitamin B2) 400 mg PO QAM 90 tabs 3RF 90 days Coding Level of Care Code Est Pt Level 4 (33382) Diagnoses Worsening headaches R51.9 Left-sided headache R51.9
--- OUTSIDE RECORDS SUMMARY | 2024-10-29 10:55 | XMS_ITS | Encounter Summary ---
Author Organization [facility] Address [address] [place] [address] Phone Care Team Providers Care Horticulture Supervisor Name Role Phone Viky Villegas MD Primary Care Provid er Encounter Details Date Type Department Care Team (Late st Contact Info) Description 06/25/2022 Procedure Pass [facility] PERIOPER[facility]IVE DEPT [address] [place] [address] Social History Tobacco Use Types [...] 6:06 PM EDT Lili Alves RN * [place] Suicide Severity Rating Scale (Screener/Recent Self-Report) Question [...] on filedocumented in this encounter Care Teams Horticulture Supervisor Relationship Specialty Start Date End Date Viky Villegas MD [address] [place] [address] PCP - General Internal Medicine 12/13/20 documented as of this encounter Additional Source Comments The information contained in this document represents components of the legal health record. It is not the complete legal health record.[facility]
--- OUTSIDE RECORDS SUMMARY | 2024-10-29 10:55 | XMS_ITS | Clinical Summary ---
Author Organization [facility] Address [facility] [address] [place] [address] Phone Care Team Providers Care Beauty School Instructor Name Role Phone Viky Villegas MD Primary [...] scar excision with Dr. Bro Talbert at [facility] on 06/25/2022. Anxiety 02/11/2017 Overview (06/11/2022): on [...] this topic Medical Devices Implanted Type Area Material Handler Floorperson Device Identifier Shelf Expiration Date Model / Serial / Lot R Great Toe R Knee Replace. Total Stabilier + Tibial Insert Implanted:Qty: 1 on 06/25/2022 by Bro Talbert MD at [facility] Right: Knee [employer] 12/18/2026 [id number] [...] EDT) SODIUM 139 136 - 145 mmol/L [facility] CHLORIDE 106 95 - 106 mmol/L [facility] POTASSIUM 3.9 3.5 - 5.2 mmol/L [facility] CO2 22 20 - 31 mmol/L [facility] BUN 13 9 - 23 mg/dL [facility] CREATININE 0.61 0.50 - 1.30 mg/dL [facility] GLUCOSE 135(H) 74 - 106 mg/dL [facility] CALCIUM 8.8 8.7 - 10.4 mg/dL [facility] EGFR 104 >60 mL/min/1.7 3m2 [facility] Comment:Estimated glomerular filtration rate calculated using the CKD-EPI refit equation. ANION GAP 11 3 - 17 mmol/L [facility] Blood 06/26/2022 5:57 AM EDT 06/26/2022 6:27 AM EDT us Roderick Capone MD LAB BLOOD ORDERABLES Final Resul t [facility] [address] [place] [address] * (ABNORMAL) Hemoglobin A1c (06/13/2022 11:54 AM EDT) HEMOGLOBIN A1C 6.3(H) 4.3 - 5.6 % [facility] CALC MEAN BLD GLUC 134 mg/dL [facility] 06/13/2022 11:5 4 AM EDT 06/13/2022 1:08 PM EDT us Katya Canales CNP LAB BLOOD ORDERABLES Final Result Performing Organization Address City/[facility] Co de Phone Number [facility] [address] [place] [address] from Last 3 Months or Most Recently Relevant to Health Maintenance Insurance MEDICARE PART A & B [facility] ONE CARE MEDICARE REPLACEMENT MEDICARE PART A & B [facility] ONE CARE MEDICARE REPLACEMENT MEDICARE PART A & [place] [address] [place] [address] CARE MEDICARE REPLACEMENT MEDICARE PART A & B [facility] CARE MEDICARE REPLACEMENT MEDICARE PART A & B CARE MEDICARE REPLACEMENT [place] [facility] [address] [place] [id number] MEDICARE PART A & B Member Subscriber Plan / Payer (Ef fective 2012-Present) Name:Shana Monzon Member ID:[id number] Relation to Subscriber:Self Name:Shana Monzon Subscriber ID:[id number] Payer ID:[id number] Group ID:Not on file Type:Medicare Address: [employer] [address] [place] [id number] [place] [address] CARE MEDICARE REPLACEMENT MEDICARE PART A & B CARE MEDICARE REPLACEMENT [address] [place] [id number] MEDICARE PART A & B Member Subscriber Plan / Payer (Ef fective 2012-Present) Name:Shana Monzon Member ID:[id number] Relation to Subscriber:Self Name:Shana Monzon Subscriber ID:[id number] Payer ID:[id number] Group ID:Not on file Type:Medicare Address: [employer] [address] [place] [address] [place] [address] CARE MEDICARE REPLACEMENT MEDICARE PART A & B [facility] ONE CARE MEDICARE REPLACEMENT Care Teams Beauty School Instructor Relationship Specialty Start Date End Date Viky Villegas MD [address] [place] [address] PCP - General Internal Medicine 12/13/20 Additional Source Comments The information contained in this document represents components of the legal health record. It is not the complete legal health record.[facility]
--- OUTSIDE RECORDS SUMMARY | 2024-10-29 10:55 | XMS_ITS | Encounter Summary ---
Author Organization [facility] Address [address] [place] [address] Phone Care Team Providers Care Financial Investigator Name Role Phone Viky Villegas MD Primary Care Provid er Encounter Details Date Type Department Care Team (Late st Contact Info) Description 06/13/2022 Transcribe Orders [facility] LAB SPECIMEN [address] [place] [address] Katya Canales CNP 2013 [facility] [address] [place] [address] [email or web address] Social History Tobacco Use Types Packs/Day Years [...] on filedocumented in this encounter Care Teams Financial Investigator Relationship Specialty Start Date End Date Viky Villegas MD [address] [place] [address] PCP - General Internal Medicine 12/13/20 documented as of this encounter Additional Source Comments The information contained in this document represents components of the legal health record. It is not the complete legal health record.[facility]
--- OUTSIDE RECORDS SUMMARY | 2024-10-29 10:55 | XMS_ITS | Clinical Summary ---
Author Organization [facility] Address [address] [place] [address] Care Team Providers Care Siphon Operator Name Role Phone Viky Villegas MD Primary [...] 0 08/16/2020 Active ergocalciferol (VITAMIN D2) capsule 85552 units Take 1 capsule by mouth once [...] age to complete this topic Care Teams Siphon Operator Relationship Specialty Start Date End Date Viky Villegas MD [address] [facility] , [address] [place] [address] Physician Associ D/B/A: [facility] [place] [address] PCP - General Internal Medicine 09/14/20
--- OUTSIDE RECORDS SUMMARY | 2024-10-29 10:56 | XMS_ITS | Encounter Summary ---
Author Organization [facility] Address [address] [place] [address] [place] [address] Phone Care Team Providers Care Assembly Line Inspector Name Role Phone Viky Villegas MD Primary Care Provid er Encounter Details Date Type Department Care Team (Late st Contact Info) Description 03/22/2022 Transcribe Orders [facility] LAB SPECIMEN [address] [place] [address] Dianne Bhatia CNP [address] [address] [email or web address] Social History Tobacco Use Types Packs/Day Years [...] on filedocumented in this encounter Care Teams Assembly Line Inspector Relationship Specialty Start Date End Date Viky Villegas MD [address] [place] [address] PCP - General Internal Medicine 12/13/20 documented as of this encounter Additional Source Comments The information contained in this document represents components of the legal health record. It is not the complete legal health record.[facility]
--- OUTSIDE RECORDS SUMMARY | 2024-10-29 10:56 | XMS_ITS | Patient Health Record ---
Author Organization [facility] Address [address] [place] [address] Care Team Providers Care Survey Research Teacher Name Role Phone Viky Villegas Primary Care [...] Problem Status W/U Status Risk Notes Problem [id number] Colon cancer screening (Z12.11) Active confirmed Problem [id number] Irritable bowel syndrome with diarrhea (K58.0) Active confirmed Problem [id number] Gastroesophageal reflux disease with esophagitis without hemorrhage (K21.00) Active confirmed Plan Of Treatment Future Test Test Name Order Date COLONOSCOPY 03/21/2023 Insurance Providers Payer Name Payer Address Payer Phone Subscriber Number Group Number Insured Name Patient Relationship to Insured Coverage Start Date Coverage End Date [facility] [address] Attn Claims [place] [id number] SALLY MIRELES Self - patient is the [...]
== END 2024-10-29 10:40 | disposition home or self-care (01) ==
LOC: HO.HSMS 09:22
PROVIDERS: PCP Internal Medicine; Visit Provider Nurse Practitioner Family
DX: R51.9 Headache, unspecified (principal)
CPT/HCPCS: 99214

== ENCOUNTER → 2024-10-29 09:21 | Outpatient (BNVA) | payer OTHER, SELFPAY | PROVIDERS: PCP Internal Medicine; Visit Provider Nurse Practitioner Family | DX: R51.9 Headache, unspecified (principal); Z79.899 Other long term (current) drug therapy | CPT/HCPCS: 99212 ==

== ENCOUNTER 2024-10-30 10:28 | Outpatient (REF) | payer OTHER, SELFPAY ==
--- OUTSIDE RECORDS SUMMARY | 2023-05-10 05:00 | XMS_ITS ---
Author Organization [facility] Address [address] [place] [address] Care Team Providers Care Quality Project Manager Name Role Phone Viky Villegas Primary Care Provider Devonte Glass Jr Unavailable REASON FOR VISIT screening colon Encounters Encounter Location Date Provider Diagnosis [facility] [place] [address] [place], [place] [phone] 05/10/2023 Devonte Leahy Jr Plan Of Treatment No Information Progress Notes * SALLY MIRELES ADOB:[birth year] (59 yo F)Acc No.[id number]:05/10/2023 COLON WITH MAC Patient: SALLY LING Provider: Nirav Leahy MD :1965 A ge:57 Y S ex:Female Date:05/10/2023 Address:[address] [place] [address] [address] , [place] [id number] Pcp:Viky Campuzano Subjective: * Chief Complaints: * 1 . Screening colon. * Medical History: Objective: * Vitals: Assessment: Plan: * Treatment: * * The named appointment provid er may or may not be the originator of this progress note, and it is not deemed complete until electronically signed by the appointment provider. Sign off status: Pending * Provider: Nirav Leahy MD Date: 0 05/10/2023 Generated for Printi ng/Faxing/eTransmitting on: 0 10/30/2024 11:04 AM EDT
--- OUTSIDE RECORDS SUMMARY | 2023-05-24 08:50 | XMS_ITS ---
Author Organization [facility] Address [address] [place] [address] Care Team Providers Care Cullet Crusher And Washer Name Role Phone Viky Villegas Primary Care Provider Devonte Glass Jr Unavailable REASON FOR VISIT colon screening Encounters Encounter Location Date Provider Diagnosis [facility] [place] [address] [place], [place] [phone] 05/24/2023 Devonte Leahy Jr Plan Of Treatment No Information Progress Notes * SALLY MIRELES ADOB:[birth year] (59 yo F)Acc No.[id number]:05/24/2023 COLON WITH MAC Patient: SALLY LING Provider: Nirav Leahy MD :1965 A ge:57 Y S ex:Female Date:05/24/2023 Address:[address] [place] [address] [address], [place] [id number] Pcp:Viky Campuzano Subjective: * Chief Complaints: * [...] 0 05/24/2023 Generated for Printi ng/Facolling/eTransmitting on: 0 10/30/2024 11:04 AM EDT
--- OUTSIDE RECORDS SUMMARY | 2023-06-21 07:50 | XMS_ITS ---
Author Organization [facility] Address [address] [place] [address] Care Team Providers Care Websphere Commerce Consultant Name Role Phone Viky Villegas Primary Care Provider Devonte Glass Jr Unavailable REASON FOR VISIT colon screening Encounters Encounter Location Date Provider Diagnosis [facility] [place] [address] [place] [id number] 06/21/2023 Devonte Leahy Jr Encounter for screening colonoscopy Z12.11 and Irritable bowel syndrome with diarrhea K58.0 Assessments Encounter Date Diagnosis (ICD Code) Assessment Notes Treatment Notes Treatment Clinical Notes Section Notes 06/21/2023 Encounter for screening colonoscopy (ICD-10 - Z12.11) 06/21/2023 Irritable bowel syndrome with diarrhea (ICD-10 - K58.0) Plan Of Treatment No Information Progress Notes * SALLY MIRELES ADOB:[birth year] (59 yo F)Acc No.[id number]:06/21/2023 COLON WITH MAC Patient: Nirav GRIMES SALLY Jewell Provider: Nirav Leahy MD :1965 A ge:58 Y S ex:Female Date:06/21/2023 Address:[address] [place] [address] [address], [id number] Pcp:Viky Campuzano Subjective: * Chief Complaints: * [...] 06/21/2023 Generated for Wilian lewis/Emily/Nuryitting on: 0 10/30/2024 11:04 AM EDT
--- NOTE | ~2024-10-30 | XR_ITS ---
EXAMINATION: XR CERVICAL SPINE CLINICAL INFORMATION: M54.2 - Cervicalgia COMPARISON: None available. TECHNIQUE: 6 views of the cervical spine, inclusive of flexion and extension views, were obtained. FINDINGS: There is no prevertebral soft tissue edema. C3-4: Uncovertebral facet osteophytes mildly narrow the right neural foramen. C4-5 demonstrates mild disc space narrowing with large anterior osteophytes. There is 2 mm retrolisthesis during extension. Level appears aligned during flexion. Vertebral facet osteophytes moderately narrow the right neural foramen. C5-6 injuries mild disc space narrowing with large anterior osteophytes. There is 2 mm retrolisthesis during extension. Level appears aligned during flexion. Uncovertebral and facet osteophytes moderately narrow the right neural foramen. C6-7: Disc space is preserved. There are anterior osteophytes. XR/XR cervical spine w flex/ext IMPRESSION: Degenerative changes are most advanced at C4-5 and C5-6. Electronically signed by: Shabbir Stone MD 10/30/2024 11:51 AM EDT
--- OUTSIDE RECORDS SUMMARY | 2024-10-30 11:04 | XMS_ITS | Clinical Summary ---
Author Organization [facility] Address [facility] [employer] [facility] [address] [place] [address] Phone Care Team Providers Care Perioperative Manager Name Role Phone Viky Villegas MD Primary [...] scar excision with Dr. Bro Talbert at [facility] on 06/25/2022. Anxiety 02/11/2017 Overview (06/11/2022): on [...] this topic Medical Devices Implanted Type Area Hogshead Opener Device Identifier Shelf Expiration Date Model / Serial / Lot R Great Toe R Knee Replace. Total Stabilier + Tibial Insert Implanted:Qty: 1 on 06/25/2022 by Bro Talbert MD at [facility] Right: Knee [employer] 12/18/2026 [id number] [...] EDT) SODIUM 139 136 - 145 mmol/L [facility] CHLORIDE 106 95 - 106 mmol/L [facility] POTASSIUM 3.9 3.5 - 5.2 mmol/L [facility] CO2 22 20 - 31 mmol/L [facility] BUN 13 9 - 23 mg/dL [facility] CREATININE 0.61 0.50 - 1.30 mg/dL [facility] GLUCOSE 135(H) 74 - 106 mg/dL [facility] CALCIUM 8.8 8.7 - 10.4 mg/dL [facility] EGFR 104 >60 mL/min/1.7 3m2 [facility] Comment:Estimated glomerular filtration rate calculated using the CKD-EPI refit equation. ANION GAP 11 3 - 17 mmol/L [facility] Blood 06/26/2022 5:57 AM EDT 06/26/2022 6:27 AM EDT us Roderick Capone MD LAB BLOOD ORDERABLES Final Resul t [facility] [address] [place] [address] * (ABNORMAL) Hemoglobin A1c (06/13/2022 11:54 AM EDT) HEMOGLOBIN A1C 6.3(H) 4.3 - 5.6 % [facility] CALC MEAN BLD GLUC 134 mg/dL [facility] 06/13/2022 11:5 4 AM EDT 06/13/2022 1:08 PM EDT us Katya Canales CNP LAB BLOOD ORDERABLES Final Result Performing Organization Address City/[facility] Co de Phone Number [facility] [address] [place] [address] from Last 3 Months or Most Recently Relevant to Health Maintenance Insurance MEDICARE PART A & B [facility] ONE CARE MEDICARE REPLACEMENT MEDICARE PART A & B [facility] ONE CARE MEDICARE REPLACEMENT MEDICARE PART A [place] [address] [address] [place] [address] CARE MEDICARE REPLACEMENT MEDICARE PART A & B [facility] CARE MEDICARE REPLACEMENT MEDICARE PART A & B CARE MEDICARE REPLACEMENT LUISANA SONI [employer] [address] [place] [id number] MEDICARE PART A & B Member Subscriber Plan / Payer (Ef fective 2012-Present) Name:Shana Monzon Member ID:[id number] Relation to Subscriber:Self Name:Shana Monzon Subscriber ID:[id number] Payer ID:[id number] Group ID:Not on file Type:Medicare Address: [employer] [address] [place] [id number] [place] [address] CARE MEDICARE REPLACEMENT MEDICARE PART A & B CARE MEDICARE REPLACEMENT DR [address] [place] [id number] MEDICARE PART A & B Member Subscriber Plan / Payer (Ef fective 2012-Present) Name:Shana Monzon Member ID:[id number] Relation to Subscriber:Self Name:Shana Monzon Subscriber ID:[id number] Payer ID:[id number] Group ID:Not on file Type:Medicare Address: [employer] [address] [place] [address] [place] [address] CARE MEDICARE REPLACEMENT MEDICARE PART A & B [facility] ONE CARE MEDICARE REPLACEMENT Care Teams Perioperative Manager Relationship Specialty Start Date End Date Viky Villegas MD [address] [place] [address] PCP - General Internal Medicine 12/13/20 Additional Source Comments The information contained in this document represents components of the legal health record. It is not the complete legal health record.[facility]
--- OUTSIDE RECORDS SUMMARY | 2024-10-30 11:04 | XMS_ITS | Encounter Summary ---
Author Organization [facility] Address [address] [employer] [facility] [address] [place] [address] Phone Care Team Providers Care Technology Infusion Specialist Name Role Phone Viky Villegas MD Primary Care Provid er Encounter Details Date Type Department Care Team (Late st Contact Info) Description 06/13/2022 Transcribe Orders [facility] LAB SPECIMEN [address] [place] [address] Katya Canales CNP 2013 [facility] [address] [place] [address] [email or web address] Social History Tobacco Use Types Packs/Day Years [...] on filedocumented in this encounter Care Teams Technology Infusion Specialist Relationship Specialty Start Date End Date Viky Villegas MD [address] [place] [address] PCP - General Internal Medicine 12/13/20 documented as of this encounter Additional Source Comments The information contained in this document represents components of the legal health record. It is not the complete legal health record.[facility]
--- OUTSIDE RECORDS SUMMARY | 2024-10-30 11:04 | XMS_ITS | Encounter Summary ---
Author Organization [facility] Address [address] [place] [address] Phone Care Team Providers Care Corn Lab Technician Name Role Phone Viky Villegas MD Primary Care Provid er Encounter Details Date Type Department Care Team (Late st Contact Info) Description 06/25/2022 Procedure Pass [facility] PERIOPERATIVE DEPT [address] [place] [address] Social History Tobacco Use [...] 6:06 PM EDT Lili Alves RN * [place] Suicide Severity Rating Scale (Screener/Recent Self-Report) Question [...] on filedocumented in this encounter Care Teams Corn Lab Technician Relationship Specialty Start Date End Date Viky Villegas MD [address] [place] [address] PCP - General Internal Medicine 12/13/20 documented as of this encounter Additional Source Comments The information contained in this document represents components of the legal health record. It is not the complete legal health record.[facility]
--- OUTSIDE RECORDS SUMMARY | 2024-10-30 11:04 | XMS_ITS | Clinical Summary ---
Author Organization [facility] Address [address] [place] [address] Care Team Providers Care Compressed Air Pile Driver Operator Name Role Phone Viky Villegas MD [...] 0 08/16/2020 Active ergocalciferol (VITAMIN D2) capsule 77181 units Take 1 capsule by mouth once [...] age to complete this topic Care Teams Compressed Air Pile Driver Operator Relationship Specialty Start Date End Date Viky Villegas MD 2 [facility] , [address] [place] [address] Physician Associ D/B/A: [facility] [place] [address] PCP - General Internal Medicine 09/14/20
--- OUTSIDE RECORDS SUMMARY | 2024-10-30 11:05 | XMS_ITS | Patient Health Record ---
Author Organization [facility] Address [address] [place] [address] Care Team Providers Care Faculty Head Name Role Phone Viky Villegas Primary Care [...] Problem Status W/U Status Risk Notes Problem [id number] Colon cancer screening (Z12.11) Active confirmed Problem 728260807 Irritable bowel syndrome with diarrhea (K58.0) Active confirmed Problem [id number] Gastroesophageal reflux disease with esophagitis without hemorrhage (K21.00) Active confirmed Plan Of Treatment Future Test Test Name Order Date COLONOSCOPY 03/21/2023 Insurance Providers Payer Name Payer Address Payer Phone Subscriber Number Group Number Insured Name Patient Relationship to Insured Coverage Start Date Coverage End Date [facility] [address] Attn Claims [place] [id number] SALLY MIRELES Self - patient is the [...]
--- OUTSIDE RECORDS SUMMARY | 2024-10-30 11:05 | XMS_ITS | Encounter Summary ---
Author Organization [facility] Address [address] [place] [address] [place] [address] Phone Care Team Providers Care Apron Operator Name Role Phone Viky Villegas MD Primary Care Provid er Encounter Details Date Type Department Care Team (Late st Contact Info) Description 03/22/2022 Transcribe Orders [facility] LAB SPECIMEN [address] [place] [address] Dianne Bhatia CNP [address] [address] [email or web address] Social History Tobacco Use Types Packs/Day [...] on filedocumented in this encounter Care Teams Apron Operator Relationship Specialty Start Date End Date Viky Villegas MD [address] [place] [address] PCP - General Internal Medicine 12/13/20 documented as of this encounter Additional Source Comments The information contained in this document represents components of the legal health record. It is not the complete legal health record.[facility]
[2024-10-30 11:16] LABS: Iron 76 mcg/dL (30-160); Magnesium 2.0 mg/dL (1.6-2.6); Percent Iron Saturation 28 % (15-50); Total Iron Binding Capacity 276 mcg/dL (228-428); Unsaturated Iron Binding 200 ug/dL
[2024-10-30 11:31] LABS: Ferritin 108 ng/mL (10-250)
[2024-10-30 11:44] LABS: Folate 14.9 ng/mL (> or = 4.0); Vitamin B12 1462 pg/mL (200-900)
[2024-11-02 07:33] LABS: Anti Nuclear Antibody Screen NEGATIVE (NEGATIVE)
== END 2024-10-30 10:29 | disposition home or self-care (01) ==
LOC: HO.LAB 10:28
PROVIDERS: PCP Internal Medicine; Visit Provider Nurse Practitioner Family
DX: Z01.84 Encounter for antibody response examination (principal); M54.2 Cervicalgia; D64.9 Anemia, unspecified; R51.9 Headache, unspecified; E53.8 Deficiency of other specified B group vitamins; E11.42 Type 2 diabetes mellitus with diabetic polyneuropathy; E51.9 Thiamine deficiency, unspecified; Z13.6 Encounter for screening for cardiovascular disorders
CPT/HCPCS: 36415; 72052; 82607; 82728; 82746; 83090; 83540; 83735; 84207; 84425; 85652; 86038; 86140; 86431

== ENCOUNTER → 2024-10-30 10:46 | Outpatient (BNV) | payer OTHER, SELFPAY | PROVIDERS: PCP Internal Medicine; Visit Provider Radiology Diagnostic Radiology | DX: M50.221 Other cervical disc displacement at C4-C5 level (principal); M50.322 Other cervical disc degeneration at C5-C6 level | CPT/HCPCS: 72052 ==

== ENCOUNTER → 2024-11-11 08:54 | Outpatient (BNV) | payer OTHER, SELFPAY | PROVIDERS: PCP Internal Medicine; Visit Provider Radiology Diagnostic Radiology | DX: H70.91 Unspecified mastoiditis, right ear (principal); Z82.49 Family history of ischemic heart disease and other diseases of the circulatory system | CPT/HCPCS: 70553 ==

== ENCOUNTER 2024-11-11 09:00 | Outpatient (REF) | payer OTHER, SELFPAY ==
--- OUTSIDE RECORDS SUMMARY | 2023-05-24 08:50 | XMS_ITS ---
Author Organization [facility] Address [address] [place] [address] Care Team Providers Care Analytical Manager Name Role Phone Viky Villegas Primary Care Provider Devonte Glass Jr Unavailable REASON FOR VISIT colon screening Encounters Encounter Location Date Provider Diagnosis [facility] [place] [address] [place], [place] [phone] 05/24/2023 Devonte Leahy Jr Plan Of Treatment No Information Progress Notes * SALLY MIRELES ADOB:[birth year] (59 yo F)Acc No.[id number]:05/24/2023 COLON WITH MAC Patient: SALLY LING Provider: Nirav Leahy MD :1965 A ge:57 Y S ex:Female Date:05/24/2023 Address:[address] [place] [address] [address], [place] [id number] Pcp:Viky Campuzano Subjective: * Chief Complaints: * 1 . Colon screening. * Medical History: Objective: * Vitals: Assessment: Plan: * Treatment: * * The named appointment provid er may or may not be the originator of this progress note, and it is not deemed complete until electronically signed by the appointment provider. Sign off status: Pending * Provider: Nirav Leahy MD Date: 0 05/24/2023 Generated for Printi ng/Facolling/eTransmitting on: 1 09:42 AM EDT
--- OUTSIDE RECORDS SUMMARY | 2023-06-21 07:50 | XMS_ITS ---
Author Organization [facility] [place] [facility] Address [address] [place] [address] Care Team Providers Care Benefits Specialist Recruiter Name Role Phone Viky Villegas Primary Care Provider Devonte Glass Jr Unavailable REASON FOR VISIT colon screening Encounters Encounter Location Date Provider Diagnosis [facility] [place] Outpatient [address] [place] [address] [id number] 06/21/2023 Devonte Leahy Jr Encounter for screening colonoscopy Z12.11 and Irritable bowel syndrome with diarrhea K58.0 Assessments Encounter Date Diagnosis (ICD Code) Assessment Notes Treatment Notes Treatment Clinical Notes Section Notes 06/21/2023 Encounter for screening colonoscopy (ICD-10 - Z12.11) 06/21/2023 Irritable bowel syndrome with diarrhea (ICD-10 - K58.0) Plan Of Treatment No Information Progress Notes * SALLY MIRELES ADOB:[birth year] (59 yo F)Acc No.[id number]:06/21/2023 COLON WITH MAC Patient: Nirav GRIMES SALLY Jewell Provider: Nirav Leahy MD :1965 A ge:58 Y S ex:Female Date:06/21/2023 Address:[address] [place] [address] [address], [id number] Pcp:Viky Campuzano Subjective: * Chief Complaints: * [...] 06/21/2023 Generated for Wilian lewis/Emily/Nuryitting on: 1 09:41 AM EDT
--- NOTE | ~2024-11-11 | MR_ITS ---
EXAMINATION: MR BRAIN WITHOUT AND WITH CONTRAST CLINICAL INFORMATION: Family history of ischemic heart disease COMPARISON: None available. TECHNIQUE: Multiplanar, multisequence MRI of the brain was obtained before and after the intravenous administration of 6.5 mL gadolinium based (Gadavist) without reported immediate complications. FINDINGS: No acute intracranial hemorrhage, mass effect, midline shift, hydrocephalus or herniation. Worley-white matter differentiation is normal. No abnormal enhancement within the intra-axial or the extra-axial compartment of the cranium. Flow-void signal within the main cerebral vessels is normal. Sellar/suprasellar region demonstrated no signal abnormality or enhancing lesion. Craniocervical junction demonstrates normal position of the cerebellar tonsils. Midline structures are normal. Hyperintense T2 FLAIR signal, right mastoid air cells. Mucosal thickening, paranasal sinuses. There is a nonenhancing, 12 mm hypointense T2 FLAIR signal within the soft tissues of the left forehead, nonspecific. Edentulous. MR/MR head/brain wo/w con IMPRESSION: No abnormal enhancement. No acute brain abnormality. Inflammatory processes, right mastoid air cells. Mild paranasal sinus disease. Electronically signed by: Nikita De Jesus MD 11/11/2024 10:16 AM EDT
--- OUTSIDE RECORDS SUMMARY | 2024-11-11 09:42 | XMS_ITS | Clinical Summary ---
Author Organization [facility] Address [facility] [employer] [facility] [address] [place] [address] Phone Care Team Providers Care Qc Tech Name Role Phone Viky Villegas MD Primary [...] scar excision with Dr. Bro Talbert at [facility] on 06/25/2022. Anxiety 02/11/2017 Overview (06/11/2022): on [...] this topic Medical Devices Implanted Type Area Crm Business Analyst Device Identifier Shelf Expiration Date Model / Serial / Lot R Great Toe R Knee Replace. Total Stabilier + Tibial Insert Implanted:Qty: 1 on 06/25/2022 by Bro Talbert MD at [facility] Right: Knee [employer] 12/18/2026 [id number] [...] EDT) SODIUM 139 136 - 145 mmol/L [facility] CHLORIDE 106 95 - 106 mmol/L [facility] POTASSIUM 3.9 3.5 - 5.2 mmol/L [facility] CO2 22 20 - 31 mmol/L [facility] BUN 13 9 - 23 mg/dL [facility] CREATININE 0.61 0.50 - 1.30 mg/dL [facility] GLUCOSE 135(H) 74 - 106 mg/dL [facility] CALCIUM 8.8 8.7 - 10.4 mg/dL [facility] EGFR 104 >60 mL/min/1.7 3m2 [facility] Comment:Estimated glomerular filtration rate calculated using the CKD-EPI refit equation. ANION GAP 11 3 - 17 mmol/L [facility] Blood 06/26/2022 5:57 AM EDT 06/26/2022 6:27 AM EDT us Roderick Capone MD LAB BLOOD ORDERABLES Final Resul t [facility] [address] [place] [address] * (ABNORMAL) Hemoglobin A1c (06/13/2022 11:54 AM EDT) HEMOGLOBIN A1C 6.3(H) 4.3 - 5.6 % [facility] CALC MEAN BLD GLUC 134 mg/dL [facility] 06/13/2022 11:5 4 AM EDT 06/13/2022 1:08 PM EDT us Katya Canales CNP LAB BLOOD ORDERABLES Final Result Performing Organization Address City/[facility] Co de Phone Number [facility] [address] [place] [address] from Last 3 Months or Most Recently Relevant to Health Maintenance Insurance MEDICARE PART A & B [facility] ONE CARE MEDICARE REPLACEMENT MEDICARE PART A & B [facility] ONE CARE MEDICARE REPLACEMENT MEDICARE PART A & [place] [place] [address] CARE MEDICARE REPLACEMENT MEDICARE PART A & B [facility] CARE MEDICARE REPLACEMENT MEDICARE PART A & B CARE MEDICARE REPLACEMENT LUISANA SONI [facility] [address] [place] [id number] MEDICARE PART A & B Member Subscriber Plan / Payer (Ef fective 2012-Present) Name:Shana Monzon Member ID:[id number] Relation to Subscriber:Self Name:Shana Monzon Subscriber ID:[id number] Payer ID:[id number] Group ID:Not on file Type:Medicare Address: [employer] [address] [place] [address] [place] [address] CARE MEDICARE REPLACEMENT MEDICARE PART A & B CARE MEDICARE REPLACEMENT DR [address] [place] [id number] MEDICARE PART A & B Member Subscriber Plan / Payer (Ef fective 2012-Present) Name:Shana Monzon Member ID:[id number] Relation to Subscriber:Self Name:Shana Monzon Subscriber ID:[id number] Payer ID:[id number] Group ID:Not on file Type:Medicare Address: [employer] [address] [place] [address] [place] [address] CARE MEDICARE REPLACEMENT MEDICARE PART A & B [facility] ONE CARE MEDICARE REPLACEMENT Care Teams Qc Tech Relationship Specialty Start Date End Date Viky Villegas MD [address] [place] [address] PCP - General Internal Medicine 12/13/20 Additional Source Comments The information contained in this document represents components of the legal health record. It is not the complete legal health record.[facility]
--- OUTSIDE RECORDS SUMMARY | 2024-11-11 09:42 | XMS_ITS | Encounter Summary ---
Author Organization [facility] Address [address] [place] [address] Phone Care Team Providers Care Leave Coordinator Name Role Phone Viky Villegas MD Primary Care Provid er Encounter Details Date Type Department Care Team (Late st Contact Info) Description 06/25/2022 Procedure Pass [facility] PERIOPERATIVE DEPT [address] [place] [address] Social History Tobacco Use Types [...] 6:06 PM EDT Lili Alves RN * [place] Suicide Severity Rating Scale (Screener/Recent Self-Report) Question [...] on filedocumented in this encounter Care Teams Leave Coordinator Relationship Specialty Start Date End Date Viky Villegas MD [address] [place] [address] PCP - General Internal Medicine 12/13/20 documented as of this encounter Additional Source Comments The information contained in this document represents components of the legal health record. It is not the complete legal health record.[facility]
--- OUTSIDE RECORDS SUMMARY | 2024-11-11 09:42 | XMS_ITS | Encounter Summary ---
Author Organization [facility] Address [address] [facility] [address] [place] [address] Phone Care Team Providers Care Maintenance Chief Name Role Phone Viky Villegas MD Primary Care Provid er Encounter Details Date Type Department Care Team (Late st Contact Info) Description 06/13/2022 Transcribe Orders [facility] LAB SPECIMEN [address] [place] [address] Katya Canales CNP 2013 [facility] [address] [place] [address] [email or web address] Social History Tobacco Use Types Packs/Day Years [...] on filedocumented in this encounter Care Teams Maintenance Chief Relationship Specialty Start Date End Date Viky Villegas MD [address] [place] [address] PCP - General Internal Medicine 12/13/20 documented as of this encounter Additional Source Comments The information contained in this document represents components of the legal health record. It is not the complete legal health record.[facility]
--- OUTSIDE RECORDS SUMMARY | 2024-11-11 09:42 | XMS_ITS | Encounter Summary ---
Author Organization [facility] Address [address] [place] [address] [place] [address] Phone Care Team Providers Care Clinical Biochemical Geneticist Name Role Phone Viky Villegas MD Primary Care Provid er Encounter Details Date Type Department Care Team (Late st Contact Info) Description 03/22/2022 Transcribe Orders [facility] LAB SPECIMEN [address] [place] [address] Dianne Bhatia CNP [address] [address] [email or web address] Social History Tobacco Use Types Packs/Day Years [...] on filedocumented in this encounter Care Teams Clinical Biochemical Geneticist Relationship Specialty Start Date End Date Viky Villegas MD [address] [place] [address] PCP - General Internal Medicine 12/13/20 documented as of this encounter Additional Source Comments The information contained in this document represents components of the legal health record. It is not the complete legal health record.[facility]
--- OUTSIDE RECORDS SUMMARY | 2024-11-11 09:42 | XMS_ITS | Clinical Summary ---
Author Organization [facility] Address [address] [place] [address] Care Team Providers Care Improvement Lead Name Role Phone Viky Villegas MD Primary [...] 0 08/16/2020 Active ergocalciferol (VITAMIN D2) capsule 08906 units Take 1 capsule by mouth once [...] age to complete this topic Care Teams Improvement Lead Relationship Specialty Start Date End Date Viky Villegas MD 2 [facility] , [address] [place] [address] Physician Associ D/B/A: [facility] [place] [address] PCP - General Internal Medicine 09/14/20
--- OUTSIDE RECORDS SUMMARY | 2024-11-11 09:42 | XMS_ITS | Patient Health Record ---
Author Organization [facility] Address [address] [place] [address] Care Team Providers Care Manager Clinic Name Role Phone Viky Villegas Primary Care [...] Problem Status W/U Status Risk Notes Problem [id number] Colon cancer screening (Z12.11) Active confirmed Problem 830909538 Irritable bowel syndrome with diarrhea (K58.0) Active confirmed Problem 716913760 Gastroesophageal reflux disease with esophagitis without hemorrhage (K21.00) Active confirmed Plan Of Treatment Future Test Test Name Order Date COLONOSCOPY 03/21/2023 Insurance Providers Payer Name Payer Address Payer Phone Subscriber Number Group Number Insured Name Patient Relationship to Insured Coverage Start Date Coverage End Date [facility] [address] Attn Claims [place] [phone] [id number] SALLY MIRELES Self - patient is the [...]
== END 2024-11-11 09:01 | disposition home or self-care (01) ==
LOC: HO.MRI 09:00
PROVIDERS: PCP Internal Medicine; Visit Provider Nurse Practitioner Family
DX: R51.9 Headache, unspecified (principal); Z82.49 Family history of ischemic heart disease and other diseases of the circulatory system
CPT/HCPCS: 70553; A9585

== ENCOUNTER 2024-12-08 08:50 | Outpatient (REF) | payer OTHER, SELFPAY ==
[2024-12-08 09:42] LABS: Alanine Aminotransferase 20 U/L (0-31); Albumin Level 4.2 g/dL (3.5-5.0); Alkaline Phosphatase 64 U/L (39-117); Anion Gap 12 (12-20); Aspartate Amino Transferase 17 U/L (5-31); Blood Urea Nitrogen 13 mg/dL (9-16); Calcium 9.7 mg/dL (8.4-10.2); Carbon Dioxide 26 mmol/L (22-29); Chloride 109 mmol/L (96-108); Estimated Glomerular Filt Rate > 60; Potassium 4.6 mmol/L (3.3-5.1); Sodium 142 mmol/L (135-145); Total Protein 6.6 g/dL (6.5-8.0)
== END 2024-12-08 08:51 | disposition home or self-care (01) ==
LOC: HO.LAB 08:50
PROVIDERS: PCP Internal Medicine; Visit Provider Physician Assistant
DX: I10 Essential (primary) hypertension (principal); E11.42 Type 2 diabetes mellitus with diabetic polyneuropathy; E78.5 Hyperlipidemia, unspecified
CPT/HCPCS: 36415; 80053

== ENCOUNTER 2024-12-10 13:54 | Outpatient (REF) | payer OTHER, SELFPAY ==
--- OUTSIDE RECORDS SUMMARY | 2023-06-21 07:50 | XMS_ITS ---
Author Organization [facility] Address [address] [place] [address] Care Team Providers Care Chemical Analyst Name Role Phone Viky Villegas Primary Care Provider Devonte Glass Jr Unavailable REASON FOR VISIT colon screening Encounters Encounter Location Date Provider Diagnosis [facility] [place] [address] [place] [id number] 06/21/2023 Devonte Leahy Jr Encounter for screening colonoscopy Z12.11 and Irritable bowel syndrome with diarrhea K58.0 Assessments Encounter Date Diagnosis (ICD Code) Assessment Notes Treatment Notes Treatment Clinical Notes Section Notes 06/21/2023 Encounter for screening colonoscopy (ICD-10 - Z12.11) 06/21/2023 Irritable bowel syndrome with diarrhea (ICD-10 - K58.0) Plan Of Treatment No Information Progress Notes * SALLY MIRELES ADOB:[birth year] (59 yo F)Acc No.[id number]:06/21/2023 COLON WITH MAC Patient: Nirav GRIMES SALLY Jewell Provider: Nirav Leahy MD :1965 A ge:58 Y S ex:Female Date:06/21/2023 Address:[address] [place] [address] [address], [id number] Pcp:Viky Campuzano Subjective: * Chief Complaints: * [...] 0 06/21/2023 Generated for Wilian lewis/Emily/Nuryitting on: 04:50 PM EDT
--- NOTE | ~2024-12-10 | CT_ITS ---
EXAMINATION: CTA NECK WITH CONTRAST (STROKE) CTA BRAIN WITH CONTRAST (STROKE) CLINICAL INFORMATION: Z82.49. Family history of ischemic heart disease and other diseases. COMPARISON: Correlated to MRI brain dated November 11, 2024. CTA neck dated November 24, 2009 is not available on PACS. TECHNIQUE: CTA of the head and neck was performed in the axial plane from the mediastinum to the skull vertex using 70 mL Omnipaque 350 intravenous contrast. Additional reformatted multiplanar images including maximum intensity projection MIP images are generated on the CT workstation. This CT examination was performed using dose optimization techniques as appropriate, variously including the following: *Automated exposure control *Adjustment of mA and/or kV according to patient size (this includes techniques or standardized protocols for targeted exams where dose is matched to indication/reason for exam; i.e. extremities or head) *Use of iterative reconstruction technique DLP: 1347 mGy-cm FINDINGS: The degree of stenosis determined by criteria similar to NASCET. Brain: No acute intracranial hemorrhage, mass effect, midline shift, hydrocephalus or herniation. Worley-white matter differentiation is normal. Posterior cranial fossa contents demonstrated no acute hemorrhage or mass effect. Calcified plaques in the V4 segments of the vertebral arteries and cavernous supracavernous segments both ICAs. No position of the cerebellar tonsils. Polypoid mucosal thickening, paranasal sinuses. Tympanic cavities and mastoid cells are aerated. Chest CTA: No aneurysm or dissection. Calcified plaque in the aortic arch and its main branches. Neck CTA: Right CCA: Normal patency. No focal stenosis. No intimal flap. Tortuosity. Right ICA: Normal patency. No focal stenosis. No intimal flap. Tortuosity. Retropharyngeal trajectory. Left CCA: Normal patency. No focal stenosis. No intimal flap. Tortuosity. Calcified plaque in the origin. Left ICA: Calcified plaque in the proximal segment. Normal patency. No focal stenosis. No intimal flap. Tortuosity. Retropharyngeal trajectory. V1/V2 segments: Normal patency. No focal stenosis. No intimal flap. Codominant vertebral arteries. Tortuosity. Both origin from the subclavian arteries. Brain CTA: Anterior cerebral circulation: ICAs: Calcified plaques in the cavernous supracavernous segments. Normal patency. No focal stenosis. No abrupt cut off. No vascular abnormality at the ICA terminus. MCA's: Normal patency. No focal stenosis. No abrupt cut off. Bifurcation/trifurcation demonstrated no vascular abnormality. ACAs: Normal patency. No focal stenosis. No abrupt cut off. No vascular abnormality. Hypoplastic right A1 segment. Anterior communicating artery is patent. No vascular abnormality. Ophthalmic arteries are patent without vascular abnormality. I do not see the posterior communicating arteries. Posterior cerebral circulation: V3/V4 segments: Normal patency. No focal stenosis. Posterior inferior cerebral arteries are patent. There is likely a common trunk and the left anterior inferior and left posterior inferior cerebellar artery. Basilar artery is patent without focal stenosis or intimal flap. Superior cerebellar arteries are normal. lining layer: No focal stenosis. No abrupt cut off. Ancillary findings: No main cerebral venous sinus thrombosis. Edentulous. Bilateral palatine tonsilithis. Absent/atrophic thyroid gland. Spondylosis C4-5 and C5-6. Pulmonary mosaic pattern. CT/CT angio head neck IMPRESSION: No main cerebral artery occlusion or embolus or aneurysm. No high degree stenosis or dissection. This critical test result is communicated to: Electronically signed by: Nikita De Jesus MD 12/10/2024 03:13 PM EDT
[2024-12-10] MEDS: iohexoL 350 MG/ML 100 ML INFUS..BTL IV (15:00)
--- OUTSIDE RECORDS SUMMARY | 2024-12-10 16:51 | XMS_ITS | Encounter Summary ---
Author Organization [facility] Address [address] [place] [address] [place] [address] Phone Care Team Providers Care Real Estate Sales Supervisor Name Role Phone Viky Villegas MD Primary Care Provid er Encounter Details Date Type Department Care Team (Late st Contact Info) Description 03/22/2022 Transcribe Orders [facility] LAB SPECIMEN [address] [place] [address] Dianne Bhatia CNP [address] [address] [email or web address] Social History Tobacco Use Types Packs/Day Years [...] on filedocumented in this encounter Care Teams Real Estate Sales Supervisor Relationship Specialty Start Date End Date Viky Villegas MD [address] [place] [address] PCP - General Internal Medicine 12/13/20 documented as of this encounter Additional Source Comments The information contained in this document represents components of the legal health record. It is not the complete legal health record.[facility]
--- OUTSIDE RECORDS SUMMARY | 2024-12-10 16:51 | XMS_ITS | Clinical Summary ---
Author Organization Formerly [facility] Address [facility] [address] [place] [address] Phone Care Team Providers Care Retail And Promotions Coordinator Name Role Phone Viky Villegas MD [...] scar excision with Dr. Bro Talbert at [facility] on 06/25/2022. Anxiety 02/11/2017 Overview [...] FOBT 2009 SIGMOIDOSCOPY 2009 VIRTUAL COLONOSCOPY 2009 RSV VACCINE (1 - Risk 50-74 years 1-dose series) 2014 PNEUMOCOCCAL VACCINES (50+ years) (2 of 2 - PCV) 12/19/2016 12/20/2015, 07/25/2011 Adult Td,Tdap Booster 07/24/2021 07/25/2011, 003 DIABETIC EYE EXAM 06/11/2022 URINE MICROALBUMIN/CREATININE RATIO 06/11/2022 ZOSTER VACCINES (2 of 2) 06/14/2022 04/19/2022 HEMOGLOBIN A1C 12/14/2022 06/13/2022 CREATININE LEVEL 06/27/2023 06/26/2022 INFLUENZA VACCINE (#1) 2024 2, 11/29/2020, 11/11/2017, [...] this topic Medical Devices Implanted Type Area Sewing Teacher Device Identifier Shelf Expiration Date Model / Serial / Lot R Great Toe R Knee Replace. Total Stabilier + Tibial Insert Implanted:Qty: 1 on 06/25/2022 by Bro Talbert MD at [facility] Right: Knee [employer] 12/18/2026 [id number] [...] EDT) SODIUM 139 136 - 145 mmol/L [facility] CHLORIDE 106 95 - 106 mmol/L [facility] POTASSIUM 3.9 3.5 - 5.2 mmol/L [facility] CO2 22 20 - 31 mmol/L [facility] BUN 13 9 - 23 mg/dL [facility] CREATININE 0.61 0.50 - 1.30 mg/dL [facility] GLUCOSE 135(H) 74 - 106 mg/dL [facility] CALCIUM 8.8 8.7 - 10.4 mg/dL [facility] EGFR 104 >60 mL/min/1.7 3m2 [facility] Comment:Estimated glomerular filtration rate calculated using the CKD-EPI refit equation. ANION GAP 11 3 - 17 mmol/L [facility] Blood 06/26/2022 5:57 AM EDT 06/26/2022 6:27 AM EDT us Roderick Capone MD LAB BLOOD ORDERABLES Final Resul t [facility] [address] [place] [address] * (ABNORMAL) Hemoglobin A1c (06/13/2022 11:54 AM EDT) HEMOGLOBIN A1C 6.3(H) 4.3 - 5.6 % [facility] CALC MEAN BLD GLUC 134 mg/dL [facility] 06/13/2022 11:5 4 AM EDT 06/13/2022 1:08 PM EDT us Katya Canales CNP LAB BLOOD ORDERABLES Final Result Performing Organization Address City/[facility] Co de Phone Number [facility] [address] [place] [address] from Last 3 Months or Most Recently Relevant to Health Maintenance Insurance [facility] [address] [place] [id number] MEDICARE PART A & B [facility] ONE CARE MEDICARE REPLACEMENT MEDICARE PART A & B [facility] MEDICARE REPLACEMENT MEDICARE PART A & B CARE MEDICARE REPLACEMENT MEDICARE PART A & B [facility] MEDICARE REPLACEMENT MEDICARE PART A & B Member Subscriber Plan / Payer (Ef fective 2012-Present) Name:Shana Monzon Member ID:[id number] Relation to Subscriber:Self Name:Shana Monzon Subscriber ID:[id number] Payer ID:[id number] Group ID:Not on file Type:Medicare Address: [employer] [address] CARE MEDICARE REPLACEMENT LUISANA SONI [facility] [address] [place] [id number] MEDICARE PART A & B Member Subscriber Plan / Payer (Ef fective 2012-Present) Name:Shana Monzon Member ID:[id number] Relation to Subscriber:Self Name:Shana Monzon Subscriber ID:[id number] Payer ID:[id number] Group ID:Not on file Type:Medicare Address: [employer] [address] [place] [phone] [place] [address] CARE MEDICARE REPLACEMENT MEDICARE PART A & B CARE MEDICARE REPLACEMENT DR [address] [place] [id number] MEDICARE PART A & B Member Subscriber Plan / Payer (Ef fective 2012-Present) Name:Shana Monzon Member ID:[id number] Relation to Subscriber:Self Name:Shana Monzon Subscriber ID:[id number] Payer ID:[id number] Group ID:Not on file Type:Medicare Address: [employer] [address] [place] [address] [place] [address] CARE MEDICARE REPLACEMENT MEDICARE PART A & B [facility] ONE CARE MEDICARE REPLACEMENT Care Teams Retail And Promotions Coordinator Relationship Specialty Start Date End Date Viky Villegas MD [address] [place] [address] PCP - General Internal Medicine 12/13/20 Additional Source Comments The information contained in this document represents components of the legal health record. It is not the complete legal health record.[facility]
--- OUTSIDE RECORDS SUMMARY | 2024-12-10 16:51 | XMS_ITS | Encounter Summary ---
Author Organization [facility] Address [address] [place] [address] Phone Care Team Providers Care Hydroelectric Production Technician Name Role Phone Viky Villegas MD Primary Care Provid er Encounter Details Date Type Department Care Team (Late st Contact Info) Description 06/25/2022 Procedure Pass [facility] PERIOPERATIVE DEPT [address] [place] [address] Social History Tobacco Use Types [...] 6:06 PM EDT Lili Alves RN * [place] Suicide Severity Rating Scale (Screener/Recent Self-Report) Question [...] on filedocumented in this encounter Care Teams Hydroelectric Production Technician Relationship Specialty Start Date End Date Viky Villegas MD [address] [place] [address] PCP - General Internal Medicine 12/13/20 documented as of this encounter Additional Source Comments The information contained in this document represents components of the legal health record. It is not the complete legal health record.[facility]
--- OUTSIDE RECORDS SUMMARY | 2024-12-10 16:51 | XMS_ITS | Encounter Summary ---
Author Organization [facility] Address [address] [facility] [address] [place] [address] Phone Care Team Providers Care Truck Mechanic Name Role Phone Viky Villegas MD Primary Care Provid er Encounter Details Date Type Department Care Team (Late st Contact Info) Description 06/13/2022 Transcribe Orders [facility] LAB SPECIMEN [address] [place] [address] Katya Canales CNP 2013 [facility] [address] [place] [address] [email or web address] Social History Tobacco Use Types Packs/Day Years [...] on filedocumented in this encounter Care Teams Truck Mechanic Relationship Specialty Start Date End Date Viky Villegas MD [address] [place] [address] PCP - General Internal Medicine 12/13/20 documented as of this encounter Additional Source Comments The information contained in this document represents components of the legal health record. It is not the complete legal health record.[facility]
--- OUTSIDE RECORDS SUMMARY | 2024-12-10 16:51 | XMS_ITS | Patient Health Record ---
Author Organization [facility] Address [address] [place] [address] Care Team Providers Care Endoscopy Technican Name Role Phone Viky Villegas Primary Care Provider Unavailab Devonte Landaverde Jr Unavailable Allergies Allergen (clinical drug ingredient) Drug/Non Drug Allergy documented on EMR Reaction Allergy Type Onset Date Status codeine Codeine Unknown Drug Allergy Active Reason For Referral No Information Medications Medication SIG (Take, Route, Frequency, Duration) Notes Start Date End Date Status Zolpidem Tartrate 10 MG Oral; Duration: 30 Active metFORMIN HCl ER 750 MG Oral; Duration: 30 Active Vitamin D3 25 MCG (1000 UT) Oral; Duration: 90 Active Trulicity 1.5 MG/0.5ML Subcutaneous; Duration: 28 Active Atorvastatin Calcium 80 MG TAKE ONE TABLET AT BEDTIME Oral; Duration: 90 Active Baclofen 10 MG Oral; Duration: 30 Active Lurasidone HCl 60 MG Oral; Duration: 30 Active Gabapentin 600 MG Oral; Duration: 30 Active Invokana 300 MG Oral; Duration: 90 Active MiraLax (colon prep) 17 GM/SCOOP mixed with Gatorade or Crystal Light Orally begin at 5:00 p.m. the day before the procedure; Duration: 1 day 03/21/2023 Active Vitamin B-2 100 MG TAKE 4 TABLETS EVERY MORNING Oral; Duration: 30 Active Pantoprazole Sodium 40 MG Oral; Duration: 90 Active Levothyroxine Sodium 75 MCG TAKE ONE TABLET EVERY DAY Oral; Duration: 90 E063,Unavailabl e Active Social History Tobacco Use: Social History [...] Problem Status W/U Status Risk Notes Problem Colon cancer screening (600848035) Colon cancer screening (Z12.11) Active confirmed Problem Irritable bowel syndrome with diarrhea (350273782) Irritable bowel syndrome with diarrhea (K58.0) Active confirmed Problem Gastroesophageal reflux disease with esophagitis (disorder) (713904840) Gastroesophageal reflux disease with esophagitis without hemorrhage (K21.00) Active confirmed Plan Of Treatment Future Test Test Name Order Date COLONOSCOPY 03/21/2023 Insurance Providers Payer Name Payer Address Payer Phone Subscriber Number Group Number Insured Name Patient Relationship to Insured Coverage Start Date Coverage End Date [facility] [address] [place] [address] [id number] SALLY MIRELES Self - patient is the insured Medical (General) History Medical History History ICD Code Diabetes mellitus type 2 Autoimmune thyroiditis/hyperthyroidism Hyperlipidemia Colonoscopy it, diverticulosis Gastroesophageal reflux dise ase, EGD 12/20, erosive gastritis and prepyloric ulcer Bipolar disorder Surgical History Surgery Date(Month/Year) section x2 1988,1996 knee replacement right appendectomy cholecystectomy Right great toe fusion partial hysterectomy 2007
--- OUTSIDE RECORDS SUMMARY | 2024-12-10 16:51 | XMS_ITS | Clinical Summary ---
Author Organization [facility] Address [address] [place] [address] Care Team Providers Care Tax Audit Manager Name Role Phone Viky Villegas MD [...] 0 08/16/2020 Active ergocalciferol (VITAMIN D2) capsule 70903 units Take 1 capsule by mouth once [...] age to complete this topic Care Teams Tax Audit Manager Relationship Specialty Start Date End Date Viky Villegas MD 2 [facility] , [address] [place] [address] Physician Associ D/B/A: [facility] [place] [address] PCP - General Internal Medicine 09/14/20
== END 2024-12-10 13:55 | disposition home or self-care (01) ==
LOC: HO.CT 13:54
PROVIDERS: PCP Internal Medicine; Visit Provider Nurse Practitioner Family
DX: R42 Dizziness and giddiness (principal); R51.9 Headache, unspecified; I10 Essential (primary) hypertension; Z82.49 Family history of ischemic heart disease and other diseases of the circulatory system; E78.5 Hyperlipidemia, unspecified
CPT/HCPCS: 70496; 70498; Q9967

== ENCOUNTER → 2024-12-10 13:55 | Outpatient (BNV) | payer OTHER, SELFPAY | PROVIDERS: PCP Internal Medicine; Visit Provider Radiology Diagnostic Radiology | DX: R51.9 Headache, unspecified (principal); Z82.49 Family history of ischemic heart disease and other diseases of the circulatory system | CPT/HCPCS: 70496; 70498 ==

== ENCOUNTER 2024-12-18 07:46 | Outpatient (REF) | payer OTHER, SELFPAY ==
--- OUTSIDE RECORDS SUMMARY | 2023-06-21 06:50 | XMS_ITS ---
Author Organization [facility] Address [address] [place] [address] Care Team Providers Care Customer Security Clerk Name Role Phone Viky Villegas Primary Care Provider Devonte Glass Jr Unavailable REASON FOR VISIT colon screening Encounters Encounter Location Date Provider Diagnosis [facility] [place] Outpatient [address] [place] [id number] 06/21/2023 Devonte Leahy Jr Encounter for screening colonoscopy Z12.11 and Irritable bowel syndrome with diarrhea K58.0 Assessments Encounter Date Diagnosis (ICD Code) Assessment Notes Treatment Notes Treatment Clinical Notes Section Notes 06/21/2023 Encounter for screening colonoscopy (ICD-10 - Z12.11) 06/21/2023 Irritable bowel syndrome with diarrhea (ICD-10 - K58.0) Plan Of Treatment No Information Progress Notes * SALLY MIRELES ADOB:[birth year] (59 yo F)Acc No.[id number]:06/21/2023 COLON WITH MAC Patient: Nirav GRIMES SALLY Jewell Provider: Nirav Leahy MD :1965 A ge:58 Y S ex:Female Date:06/21/2023 Address:[address] [place] [address] [address], [id number] Pcp:Viky Campuzano Subjective: * Chief Complaints: * 1 . Colon screening. * Medical History: Objective: * Vitals: Assessment: * Assessment: 1. E ncounter for screening colonoscopy - Z12.11 (Primary) 2 . I rritable bowel syndrome with diarrhea - K58.0 Plan: * Treatment: * Procedure Codes: 4 5380 COLONOSCOPY AND BIOPSY * * The named appointment provid er may or may not be the originator of this progress note, and it is not deemed complete until electronically signed by the appointment provider. Sign off status: Pending * Provider: Nirav Leahy MD Date: 0 06/21/2023 Generated for Wilian lewis/Emily/Nuryitting on: 1 02/18/2024 07:47 AM EST
--- NOTE | ~2024-12-18 | MM_ITS ---
EXAMINATION: MM SCREENING DIGITAL BREAST TOMOSYNTHESIS, BILATERAL CLINICAL INFORMATION: Screening. Asymptomatic. COMPARISON: Mammography: Comparison is made with available priors TECHNIQUE: Digital breast mammography with tomosynthesis is performed in both the craniocaudal and mediolateral oblique views along with computer-aided detection (CAD). FINDINGS: There are scattered areas of fibroglandular density. There are no significant masses, abnormal calcifications, or other abnormalities. MM/MM tomosynthesis screening BI IMPRESSION: No mammographic evidence of malignancy. ASSESSMENT: BI-RADS Category 1: Negative RECOMMENDATION: Routine annual mammography screening. 1 year F/U This examination should not preclude the clinical evaluation of a suspicious palpable abnormality. This patient's information was entered into a reminder system with a target due date for their next mammogram. Electronically signed by: Marita Lang DO 12/22/2024 09:14 AM [place]ER
--- OUTSIDE RECORDS SUMMARY | 2024-12-18 07:47 | XMS_ITS | Encounter Summary ---
Author Organization [facility] Address [address] [place] [address] Phone Care Team Providers Care Inspector Material Disposition Name Role Phone Viky Villegas MD Primary Care Provid er Encounter Details Date Type Department Care Team (Late st Contact Info) Description 06/25/2022 Procedure Pass [facility] PERIOPERATIVE DEPT 2014 [place] [address] Social History Tobacco Use Types [...] 6:06 PM EDT Lili Alves RN * [place] Suicide Severity Rating Scale (Screener/Recent Self-Report) Question [...] on filedocumented in this encounter Care Teams Inspector Material Disposition Relationship Specialty Start Date End Date Viky Villegas MD [address] [place] [address] PCP - General Internal Medicine 12/13/20 documented as of this encounter Additional Source Comments The information contained in this document represents components of the legal health record. It is not the complete legal health record.[facility]
--- OUTSIDE RECORDS SUMMARY | 2024-12-18 07:47 | XMS_ITS | Clinical Summary ---
Author Organization Formerly [facility] Address [address] [place] [address] Care Team Providers Care Organic Section Technical Lead Name Role Phone Viky Villegas MD [...] 0 08/16/2020 Active ergocalciferol (VITAMIN D2) capsule 44608 units Take 1 capsule by mouth once [...] age to complete this topic Care Teams Organic Section Technical Lead Relationship Specialty Start Date End Date Viky Villegas MD 2 [facility] , [address] [place] [address] Physician Associ D/B/A: [facility] [place] [address] PCP - General Internal Medicine 09/14/20
--- OUTSIDE RECORDS SUMMARY | 2024-12-18 07:48 | XMS_ITS | Encounter Summary ---
Author Organization [facility] Address [address] [facility] [address] [place] [address] Phone Care Team Providers Care Energy Consultant Name Role Phone Viky Villegas MD Primary Care Provid er Encounter Details Date Type Department Care Team (Late st Contact Info) Description 06/13/2022 Transcribe Orders [facility] Lab Main [address] [place] [address] Katya Canales CNP 2013 [facility] [address] [place] [address] [email or web address] Social History Tobacco Use Types Packs/Day Years [...] on filedocumented in this encounter Care Teams Energy Consultant Relationship Specialty Start Date End Date Viky Villegas MD [address] [place] [address] PCP - General Internal Medicine 12/13/20 documented as of this encounter Additional Source Comments The information contained in this document represents components of the legal health record. It is not the complete legal health record.[facility]
--- OUTSIDE RECORDS SUMMARY | 2024-12-18 07:48 | XMS_ITS | Clinical Summary ---
Author Organization [facility] Address [facility] MD [facility] [address] [place] [address] Phone Care Team Providers Care Muck Boss Name Role Phone Viky Villegas MD Primary [...] scar excision with Dr. Bro Talbert at [facility] on 06/25/2022. Anxiety 02/11/2017 Overview (06/11/2022): [...] this topic Medical Devices Implanted Type Area Ux Researcher Device Identifier Shelf Expiration Date Model / Serial / Lot R Great Toe R Knee Replace. Total Stabilier + Tibial Insert Implanted:Qty: 1 on 06/25/2022 by Bro Talbert MD at [facility] Right: Knee [employer] 12/18/2026 [id number] / / [id number] Description:The implant type , laterality (when applicable), size, and expiration date have been visually and verbally confirmed by the Surgeon, Circulating RN and Scrub Personnel. Procedures Procedure Name Priority Date/Time Associated Diagnosis Comments BASIC METABOLIC PANEL (BMP) Routine 06/26/2022 5:57 AM EDT HEMOGLOBIN A1C Routine 06/13/2022 11:54 AM EDT Preop testing from Last 3 Months or Most Recently Relevant to Health Maintenance Results * (ABNORMAL) Basic metabolic panel (06/26/2022 5:57 AM EDT) SODIUM 139 136 - 145 mmol/L [facility] CHLORIDE 106 95 - 106 mmol/L [facility] POTASSIUM 3.9 3.5 - 5.2 mmol/L [facility] CO2 22 20 - 31 mmol/L [facility] BUN 13 9 - 23 mg/dL [facility] CREATININE 0.61 0.50 - 1.30 mg/dL [facility] GLUCOSE 135(H) 74 - 106 mg/dL [facility] CALCIUM 8.8 8.7 - 10.4 mg/dL [facility] EGFR 104 >60 mL/min/1.7 3m2 [facility] Comment:Estimated glomerular filtration rate calculated using the CKD-EPI refit equation. ANION GAP 11 3 - 17 mmol/L [facility] Blood 06/26/2022 5:57 AM EDT 06/26/2022 6:27 AM EDT us Roderick Capone MD LAB BLOOD BKR ORDERABLES Final R esult [facility] [address] [place] [address] * (ABNORMAL) Hemoglobin A1c (06/13/2022 11:54 AM EDT) HEMOGLOBIN A1C 6.3(H) 4.3 - 5.6 % [facility] CALC MEAN BLD GLUC 134 mg/dL [facility] 06/13/2022 11:5 4 AM EDT 06/13/2022 1:08 PM EDT Katya Canales CNP LAB BLOOD BKR ORDERABLES Fi nal Result Performing Organization Address [facility]/ZIP Co de Phone Number [facility] [address] [place] [address] from Last 3 Months or Most Recently Relevant to Health Maintenance Insurance [address] [place] [address] MEDICARE PART A & B [facility] ONE CARE MEDICARE REPLACEMENT MEDICARE PART A & B [facility] ONE CARE MEDICARE REPLACEMENT MEDICARE PART A & B [facility] CARE MEDICARE REPLACEMENT [address] [place] [address] MEDICARE PART A & B [facility] CARE MEDICARE REPLACEMENT DR [address] [place] [id number] MEDICARE PART A & B CARE MEDICARE REPLACEMENT LUISANA SONI [facility] [address] [place] [id number] MEDICARE PART A & B CARE MEDICARE REPLACEMENT MEDICARE PART A & B CARE MEDICARE REPLACEMENT MEDICARE PART A & B CARE MEDICARE REPLACEMENT DR [address] [place] [id number] MEDICARE PART A & B [facility] ONE CARE MEDICARE REPLACEMENT Care Teams Muck Boss Relationship Specialty Start Date End Date Viky Villegas MD [address] [place] [address] PCP - General Internal Medicine 12/13/20 Additional Source Comments The information contained in this document represents components of the legal health record. It is not the complete legal health record.[facility]
--- OUTSIDE RECORDS SUMMARY | 2024-12-18 07:48 | XMS_ITS | Patient Health Record ---
Author Organization [facility] Address [address] [place] [address] Care Team Providers Care Sap Technical Developer Name Role Phone Viky Villegas Primary Care [...] Status Risk Notes Problem Colon cancer screening (033298380) Colon cancer screening (Z12.11) Active confirmed Problem Irritable bowel syndrome with diarrhea (561019120) Irritable bowel syndrome with diarrhea (K58.0) Active confirmed Problem Gastroesophageal reflux disease with esophagitis (disorder) (597980423) Gastroesophageal reflux disease with esophagitis without hemorrhage (K21.00) Active confirmed Plan Of Treatment Future Test Test Name Order Date COLONOSCOPY 03/21/2023 Insurance Providers Payer Name Payer Address Payer Phone Subscriber Number Group Number Insured Name Patient Relationship to Insured Coverage Start Date Coverage End Date [facility] [address] [place] [id number] SALLY MIRELES Self - patient is the [...]
--- OUTSIDE RECORDS SUMMARY | 2024-12-18 07:48 | XMS_ITS | Encounter Summary ---
Author Organization [facility] Address [address] [place] [address] [place] [address] Phone Care Team Providers Care Tester Printed Circuit Boards Name Role Phone Viky Villegas MD Primary Care Provid er Encounter Details Date Type Department Care Team (Late st Contact Info) Description 03/22/2022 Transcribe Orders [facility] Lab Main [address] [place], [place] [id number] Dianne Bhatia CNP [address] [address] [email or web address] Social History Tobacco Use Types Packs/Day Years [...] on filedocumented in this encounter Care Teams Tester Printed Circuit Boards Relationship Specialty Start Date End Date Viky Villegas MD [address] [place] [address] PCP - General Internal Medicine 12/13/20 documented as of this encounter Additional Source Comments The information contained in this document represents components of the legal health record. It is not the complete legal health record.[facility]
== END 2024-12-18 07:47 | disposition home or self-care (01) ==
LOC: HO.MAMMO 07:46
PROVIDERS: PCP Internal Medicine; Visit Provider Internal Medicine
DX: Z12.31 Encounter for screening mammogram for malignant neoplasm of breast (principal)
CPT/HCPCS: 77063; 77067

== ENCOUNTER → 2024-12-18 08:00 | Outpatient (BNV) | payer OTHER, SELFPAY | PROVIDERS: PCP Internal Medicine; Visit Provider Internal Medicine | DX: Z12.31 Encounter for screening mammogram for malignant neoplasm of breast (principal) | CPT/HCPCS: 77063; 77067 ==

== ENCOUNTER 2025-01-22 08:40 | Outpatient (REF) | payer OTHER, SELFPAY ==
--- NOTE | ~2025-01-22 | MM_ITS ---
EXAMINATION: DXA BONE DENSITY AXIAL HISTORY: Z78.0 - Asymptomatic menopausal state TECHNIQUE: [place] Dual energy absorptiometry (DEXA) of the lumbar spine, total left hip, and femoral neck was performed. COMPARISON: Comparison is made with the prior examination dated 01/09/2023. FINDINGS: The bone mineral density of the lumbar spine is 1.248 g/cm2, corresponding to a T-score of 0.6, and a Z-score of 1.5. This is indicative of normal bone mineral density. This represents a BMD change of 2.4% compared to the prior exam. This is statistically significant. The bone mineral density of the left total hip is 0.980 g/cm2, corresponding to a T-score of -0.2, and a Z-score of 0.5. This is indicative of normal bone mineral density. This represents a BMD change of -2.1% compared to the prior exam. This is not statistically significant. The bone mineral density of the left femoral neck is 0.838 g/cm2, corresponding to a T-score of -1.4, and a Z-score of -0.4. This is indicative of osteopenia. This represents a BMD change of 3.3% compared to the prior exam. FRACTURE RISK: The FRAX index suggests a ten year probability of major osteoporotic fracture of 7.8%, and of hip fracture 0.6%. MM/XR DEXA axial skeleton IMPRESSION: Based on bone mineral density, and according to World Health Organization (WHO) criteria, the diagnosis is consistent with osteopenia. Statistically, 68% of repeat scans fall within 1 SD (+/- 0.010 g/cm2 for AP spine L1-L4) and 1 SD (+/- 0.012 g/cm2 for femur total) FRAX is a trademark of the [employer] [employer] [facility] Met[employer], a World Health Organization (WHO) Collaborating Center. Electronically signed by: Clint Rowley MD 01/22/2025 09:09 AM [facility] [place]
== END 2025-01-22 08:41 | disposition home or self-care (01) ==
LOC: HO.MAMMO 08:40
PROVIDERS: PCP Internal Medicine; Visit Provider Internal Medicine
DX: Z78.0 Asymptomatic menopausal state (principal)
CPT/HCPCS: 77080

== ENCOUNTER → 2025-01-22 08:45 | Outpatient (BNV) | payer OTHER, SELFPAY | PROVIDERS: PCP Internal Medicine; Visit Provider Radiology Diagnostic Radiology | DX: E28.39 Other primary ovarian failure (principal) | CPT/HCPCS: 77080 ==

== ENCOUNTER 2025-01-25 09:13 | Outpatient (AMB) | payer OTHER, SELFPAY ==
[2025-01-25 09:18] VITALS: BP 108/72; PULSE 80; O2SAT 96; BMI 28.9
--- NOTE | 2025-01-25 09:18 | A.OFFVIS_ITS ---
Vital Signs 01/25/25 09:18 Height 5 ft 1 in Weight 152 lb 12.485 oz BMI 28.9 BP 108/72 Blood Pressure Location Lt brachial Position Sitting Pulse 80 Pulse Source Pulse Oximeter Pulse Oximetry (%) 96 Oxygen Delivery Method Room Air Intake Visit Reasons: dm Intake Note: Patient present today for Type 2 Diabetes Mellitus Last Diabetic eye exam: Last exam was in April 2024 Last Podiatry Visit: Last visit was about a year ago. Random Glucose: 159 mg/dl HgA1C: 7.5% Air Battle Manager Required: No Accompanied by: Self / Same As Patient Allergies codeine (CODEINE) Allergy (Intermediate, Verified 01/25/25 09:22) NAUSEA, nausea and vomiting HPI HPI dm: Details: Patient is a 59-year-old female with a significant past medical history of type 2 diabetes, peripheral neuropathy, hyperlipidemia, hypothyroidism presenting today for a diabetic follow-up. Endo: DM- She is currently on Invokana 300 mg, Trulicity 4.5 mg weekly. Her last A1c was 6.6 and today is 7.5. She is not on an GREGORY-inhibitor. No known nephropathy. Cholesterol is controlled with atorvastatin 80 mg. -She is off metformin as it causes stomach upset. She states she has had some more dietary indiscretions between , and now . Trulicity appears to not be effective and causing rare nausea. Follows with Podiatry and Ophthalmology. Denies any hyper or hypoglycemic events. Overall feeling well. She is getting out of the house and volunteering at a local animal custodial. CV: Blood pressure today in the office 108/72. Not on antihypertensives. Cholesterol is managed with atorvastatin 80 mg. Last LDL was 71 PFSH Medical History (Updated 11/20/24 @ 14:41 by EMBER Hurtado) Anemia Mild recurrent major depression Type 2 diabetes mellitus Peripheral sensory neuropathy due to type 2 diabetes mellitus PVD (peripheral vascular disease) Snoring Insomnia Ingrown toenail Right knee pain Skin mole Dyslipidemia Fear of needles Depression with anxiety Bipolar disorder Insomnia Autoimmune thyroiditis Diabetes mellitus Knee pain Surgical History (Updated 01/25/25 @ 09:24 by TEODORO Strong) S/P hardware removal History of colonoscopy H/O hysterectomy for benign disease Previous section Hx of cholecystectomy Hx of appendectomy History of total right knee replacement Family History Father Heart disease Mother Brain aneurysm COPD (chronic obstructive pulmonary disease) Social History Housing: House Alcohol intake: former Patient Tobacco Use Status: Former Tobacco user Tobacco use type: Cigarette e-Cigarette/Vaping Use: Never Used Second Hand Smoke Exposure: No service: No Current occupational status: unemployed Cognitive needs: No Hearing needs: No Vision needs: Yes (Glasses.) Physical Exam Vital Signs: Last Vital Signs Pulse 80 01/25/25 09:18 BP 108/72 01/25/25 09:18 Pulse Ox 96 01/25/25 09:18 Oxygen Delivery Method Room Air 01/25/25 09:18 BMI result Body Mass Index 28.9 Const Orientation/consciousness: patient oriented x3 HEENT Ears: hearing grossly normal bilaterally Neck Thyroid: Thyroid normal Lymphatic: no lymphadenopathy noted Resp Auscultation: clear to auscultation bilaterally Cardio Rate: regular rate Rhythm: regular rhythm Heart sounds: S1 normal heart sound present and S2 normal heart sound present Skin General skin exam: no rashes or lesions noted Neuro General: patient oriented x3, gait normal and no focal motor deficits Results AMB Hemoglobin A1c AMB Hemoglobin A1c 7.5 % Last Edit by TEODORO Strong on 01/25/25 09:36 Results Reviewed Results Reviewed: Laboratory Last Values Glucose (Clinic) 159 mg/dL (60-115) H 01/25/25 09:26 Laboratory Tests 12/08/24 09:01 Creatinine 0.87 Estimated GFR > 60 Fasting Glucose 138 H AST 17 ALT 20 Assessment & Plan Assessment & Plan (1) Type 2 diabetes mellitus: Code(s): E11.9 - Type 2 diabetes mellitus without complications Category: Medical Qualifiers: Diabetes mellitus complication detail: with unspecified neuropathy Diabetes mellitus complication status: with neurologic complications Diabetes mellitus longterm insulin use: without buttermaker continuous churn use Qualified Code(s): E11.40 - Type 2 diabetes mellitus with diabetic neuropathy, unspecified Plan: d/c Trulicity to 4.5 mg weekly restart metformin 500 mg daily will start mounjaro 2.5 mg weekly Continue Invokana 300 mg daily we will do a short term follow up (2) Dyslipidemia: Code(s): E78.5 - Hyperlipidemia, unspecified Category: Medical Plan: Continue current regimen Orders: Orders AMB Hemoglobin A1c Today E11.40 - Type 2 diabetes mellitus with diabetic neuropathy, unspecified, Z13.9 - Encounter for screening, unspecified Medications: New tirzepatide (Mounjaro) 2.5 mg (0.5 mL) subcut QWEEK 2 mL 1RF metformin ER (Glucophage XR) 500 mg PO DAILY 90 tabs 0RF Discontinued dulaglutide (Trulicity) Discontinued Reason: Doctor's Order 4.5 mg (0.5 mL) subcut QWEEK 6 mL 3RF Coding Level of Care Code Est Pt Level 4 (52341) Add On Problem Visit Only Diagnoses Type 2 diabetes mellitus with diabetic neuropathy, without long-term current use of insulin E11.40 Diabetes mellitus complication detail: with unspecified neuropathy Diabetes mellitus complication status: with neurologic complications Diabetes mellitus longterm insulin use: without longterm use Dyslipidemia E78.5
[2025-01-25 09:30] LABS: Glucose, Whole Blood 159 mg/dL (60-115)
== END 2025-01-25 09:45 | disposition home or self-care (01) ==
LOC: HO.ENCR 09:13
PROVIDERS: PCP Internal Medicine; Visit Provider Physician Assistant
DX: E11.40 Type 2 diabetes mellitus with diabetic neuropathy, unspecified (principal); E78.5 Hyperlipidemia, unspecified; Z13.9 Encounter for screening, unspecified

== ENCOUNTER → 2025-01-25 09:13 | Outpatient (BNVA) | payer OTHER, SELFPAY | PROVIDERS: PCP Internal Medicine; Visit Provider Physician Assistant | DX: E11.40 Type 2 diabetes mellitus with diabetic neuropathy, unspecified (principal); E78.5 Hyperlipidemia, unspecified | CPT/HCPCS: 82947; 83036; 99212 ==